=== PATIENT | female | born 1935 | race Caucasian/White ===

== ENCOUNTER 2017-08-09 07:15 | Day surgery (SDC) | payer OTHER, MEDICARE ==
[2017-08-03 14:54] VITALS: BMI 18.7
[2017-08-09] MEDS ORDERED: BUPIVACAINE HCL/PF 0.5% (5MG/ML) 10 ML VIAL ONE (09:51)
[2017-08-09] MEDS ORDERED: BACITRACIN 3.5 GM OPTHALMIC OINT TUBE ONE (09:51)
[2017-08-09] MEDS ORDERED: TETRACAINE 0.5% OPHTH SOLN 2 ML BOTTLE ONE (09:51)
[2017-08-09] MEDS ORDERED: LIDOCAINE 1%/EPI 1:100000 (20 ML MULTI DOSE VIAL) ONE (09:51)
[2017-08-09] MEDS ORDERED: PROPOFOL 20 ML ONE ×2 (10:03)
[2017-08-09] MEDS ORDERED: MIDAZOLAM HCL 2 MG/2 ML SINGLE DOSE VIAL ONE (10:03)
[2017-08-09] MEDS ORDERED: ceFAZolin SODIUM 1 GM VIAL ONE (10:18)
[2017-08-09] MEDS ORDERED: ONDANSETRON 4 MG/2 ML VIAL ONE (10:18)
[2017-08-09] MEDS ORDERED: DEXAMETHASONE SOD PHOSPHATE 4 MG/1 ML VIAL ONE (10:18)
[2017-08-09] MEDS ORDERED: PROMETHAZINE HCL 25 MG/1 ML VIAL IVPB PRN (11:15)
[2017-08-09] MEDS ORDERED: LACTATED RINGERS SOLUTION 1,000 ML IV SCH (11:15)
[2017-08-09] MEDS ORDERED: ONDANSETRON 4 MG/2 ML VIAL IVPUSH PRN (11:15)
[2017-08-09] MEDS ORDERED: oxyCODONE HCL 5 MG TABLET PO PRN ×2 (11:15)
[2017-08-09 12:06] VITALS: TEMP 97.8
[2017-08-09 12:31] VITALS: BP 168/72; PULSE 58
--- NOTE | 2017-08-09 13:10 | OP ---
DATE OF OPERATION: 08/09/2017 PREOPERATIVE DIAGNOSIS: Defect, right upper lid, status post excision of basal cell carcinoma. POSTOPERATIVE DIAGNOSIS: Defect, right upper lid, status post excision of basal cell carcinoma. PROCEDURES: 1. Lateral myocutaneous flap. 2. Debridement and tailoring of defect and repair of full-thickness defect with excision of superior tarsus, right upper lid. SURGEON: Thang Swenson MD ANESTHESIA: Local with sedation. COMPLICATIONS: None. ESTIMATED BLOOD LOSS: 3-5 mL. OPERATIVE REPORT: The patient was brought to the operating room and placed on the operating room table. Vital signs were monitored by Anesthesia. Tetracaine was placed in both eyes. A time-out was performed. A lateral curvilinear myocutaneous flap was marked, extending from the right upper lid inferiorly and inferolaterally into the lateral canthal region. The patient was given intravenous sedation. A 50/50 mixture of 2% Xylocaine and 1:100,000 epinephrine with 0.5% Marcaine was injected diffusely throughout the myocutaneous flap area, through the lateral portion of the right upper lid and right lower lid, and throughout the full width of the right upper lid where the defect was. The patient was prepped and draped in the usual fashion, exposing both eyes. The wound was tailored and regularized. The lid was everted, demonstrating that a small amount of tarsus superiorly was still intact and therefore, this had to be excised to prevent tarsal buckling during the anastomosis. A lateral myocutaneous flap was now developed by dividing the skin and muscle area with a 15 blade, raising the myocutaneous flap and releasing the superior raissa and lateral canthal tendon from the orbital rim, completing allowing the lateral remnant to mobilize medially without damaging the lacrimal gland. Hemostasis was achieved using a Gulf needle. The full-thickness defect in the central was now repaired with 3 interrupted 6-0 silk sutures, one through the anterior lash line, one through the posterior mucocutaneous junction and a vertical mattress suture through the coffman line, creating a central pucker when tied. These were then looped inferiorly in a hemostat and the tarsal plate was anastomosed with three interrupted 6-0 Vicryl sutures with partial thickness bites, not penetrating through the posterior tarsus. The muscle layer was closed with 5-0 chromic and the skin was closed with interrupted running 6-0 silk suture, removing the standing cutaneous deformity at the top of the wedge resection. Marginal sutures were then looped superolaterally to the skin and tied there with a 6-0 silk suture to keep the sutures away from the cornea. The horizontal width of the palpebral fissure on the contralateral side was measured at 26-27 mm and this was marked on the right side. The appropriate width was then determined The lateral canthus was reformed with a buried 5-0 chromic suture at the point of the lateral canthal attachment to the inferior raissa lateral canthal tendon. The skin lateral to this was tailored and closed with interrupted 6-0 silk suture and then lateral to this, the myocutaneous flap was closed with a muscular 5-0 chromic suture with a running 6-0 plain suture. The upper lid was tailored in its lateral portion to be a smooth contour toward the lateral canthus. Antibiotic irrigation was used throughout the case. Bacitracin was placed in the eye, over sutures and lateral canthus, and the patient was taken to the recovery room in stable condition. THANG SWENSON M.D. [id number]
== END 2017-08-09 12:33 | disposition home or self-care (01) ==
LOC: FASU 07:15
PROVIDERS: ATTEND Ophthalmology
PROC: 0KX10ZZ Transfer Facial Muscle, Open Approach (ICD-10-PCS; 2017-08-09)
PROC: 08BN0ZZ Excision of Right Upper Eyelid, Open Approach (ICD-10-PCS; principal; 2017-08-09 10:26)
DX: C44.112 Basal cell carcinoma of skin of right eyelid, including canthus (principal); H02.89 Other specified disorders of eyelid
CPT/HCPCS: 94760

== ENCOUNTER 2017-11-19 19:10 | Inpatient (IN) | payer OTHER, MEDICARE ==
--- NOTE | 2017-11-19 19:51 | PDOC ---
History of Present Illness - General History Source: Patient, Old Records Exam Limitations: No Limitations - History of Present Illness Initial Comments: 11/19/17 21:34 The patient is a 82 year old female with a past medical history of HTN and COPD who presents to the emergency department with dizziness for 4 days. She reports that she was seen at this emergency department yesterday for similar symptoms. She reports that her dizziness feels like Im drunk. Her dizziness is exacerbated when standing and walking. She reports associated unsteady gait, headache, neck pain, back pain, and increased thirst. She took 25 mg of Meclizine at 10:30AM today to alleviate symptoms with no relief. <Tristan Craft - Last Filed: 11/19/17 21:34> - General History Source: Patient Exam Limitations: No Limitations <Alivia Bey - Last Filed: 11/20/17 01:28> - General Chief Complaint: Lightheaded Stated Complaint: LIGHTHEADED Time Seen by Provider: 11/19/17 19:51 Past History <Tristan Craft - Last Filed: 11/19/17 21:34> - Past Medical History Anemia: No Asthma: No Cancer: Yes (BASAL CELL CANCER RIGHT EYE LID 1 MONTH AGO) Cardiac Disorders: No CVA: No COPD: Yes CHF: No Dementia: No Diabetes: No GI Disorders: No Disorders: No HTN: Yes Hypercholesterolemia: Yes Liver Disease: No Seizures: No Thyroid Disease: No - Surgical History Abdominal Surgery: No Appendectomy: No Cardiac Surgery: No Cholecystectomy: No Lung Surgery: No Neurologic Surgery: No Orthopedic Surgery: No - Immunization History Immunization Up to Date: Yes - Suicide/Smoking/Psychosocial Hx Smoking History: Former smoker Have you smoked in the past 12 months: No If you are a former smoker, when did you quit?: 28yrs Cigars Per Day: 0 Information on smoking cessation initiated: No 'Breaking Loose' booklet given: 06/13/13 Hx Alcohol Use: No Drug/Substance Use Hx: No Substance Use Type: None Hx Substance Use Treatment: No <Alivia Bey - Last Filed: 11/20/17 01:28> - Past Medical History Allergies/Adverse Reactions: Allergies Allergy/AdvReac Type Severity Reaction Status Date / Time No Known Allergies Allergy Verified 11/19/17 19:41 Home Medications: Ambulatory Orders Amlodipine Besylate [Norvasc -] 10 mg PO DAILY 07/01/15 Simvastatin [Zocor -] 20 mg PO HS 01/22/16 Sodium Chloride Tablet - 1 gm PO BID 01/22/16 Albuterol Sulfate [Proair Hfa] 8.5 gm IH PRN PRN 08/03/17 Aspirin [Aspirin EC] 81 mg PO DAILY 08/03/17 Budesonide/Formeterol Fumarate [SYMBICORT 160/4.5mcg -] 1 inh PO DAILY 08/03/17 Calcium Carbonate/Vitamin D3 [Calcium 600 + Vit D 400 Softgl] 1 each PO DAILY Multivit-Min/Iron/Folic/Lutein [Centrum Silver Women Tablet] 1 each PO DAILY Vit E/Vit E Mx/Squal/Phytostrl [Mixed Tocotrienols 50 mg Sftgl] 1 each PO DAILY 08/03/17 Meclizine HCl 25 mg PO ONCE #7 tab.chew 11/18/17 Review of Systems - Review of Systems Able to Perform ROS?: Yes Comments:: 11/19/17 21:34 GENERAL/CONSTITUTIONAL: No: fever, chills, weakness, loss of appetite. HEAD, EYES, EARS, NOSE AND THROAT: No: change in vision, ear pain, discharge, sore throat, throat swelling. CARDIOVASCULAR: No: chest pain, lightheadedness, palpitations, syncope RESPIRATORY: No: cough, shortness of breath, wheezing, hemoptysis, stridor. GASTROINTESTINAL: No: nausea, vomiting, abdominal cramping, diarrhea, rectal bleeding, constipation. GENITOURINARY: No: dysuria, hematuria, frequency, urgency, flank pain. MUSCULOSKELETAL: No: back pain, neck pain, joint pain, muscle swelling or pain SKIN: No: lesions, pallor, rash or easy bruising. NEUROLOGIC: (+) Dizziness, unsteady gait, headache. ENDOCRINE: (+) Increased thirst No: unexplained weight gain or loss HEMATOLOGIC/LYMPHATIC: No: anemia, easy bleeding, swelling nodes <Tristan Craft - Last Filed: 11/19/17 21:34> *Physical Exam - Vital Signs Last Vital Signs Temp Pulse Resp BP Pulse Ox 98.1 F 63 18 171/71 96 11/19/17 19:30 11/19/17 19:30 11/19/17 19:30 11/19/17 19:30 11/19/17 19:30 - Physical Exam Comments: 11/19/17 21:34 GENERAL: The patient is in no acute distress. HEAD: Normal with no signs of trauma. EYES: PERRLA, EOMI, sclera anicteric, conjunctiva clear. ENT: Ears normal, nares patent, oropharynx clear without exudates. Moist mucous membranes. NECK: Normal range of motion, supple without lymphadenopathy, JVD, or masses. LUNGS: Breath sounds equal, clear to auscultation bilaterally. (+) Bilateral wheezes, no crackles. HEART:Regular rate and rhythm, normal S1 and S2 without murmur, rub or gallop. ABDOMEN: Soft, nontender, normoactive bowel sounds. No guarding, no rebound. EXTREMITIES: Normal range of motion, no edema. No clubbing or cyanosis. No erythema, or tenderness. NEUROLOGICAL: Cranial nerves II through XII grossly intact. Normal speech. No focal neurological deficits. MUSCULOSKELETAL: Back nontender to palpation, no CVA tenderness SKIN: Warm, Dry, normal turgor, no rashes or lesions noted. <Tristan Craft - Last Filed: 11/19/17 21:34> - Vital Signs Last Vital Signs Temp Pulse Resp BP Pulse Ox 98.1 F 63 18 171/71 96 11/19/17 19:30 11/19/17 19:30 11/19/17 19:30 11/19/17 19:30 11/19/17 19:30 <Alivia Bey - Last Filed: 11/20/17 01:28> ED Treatment Course - LABORATORY CBC & Chemistry Diagram: 11/19/17 20:30 11/19/17 20:30 - ADDITIONAL ORDERS Additional order review: Laboratory Results 11/19/17 20:30 Sodium 120 L* Potassium 4.0 Chloride 85 L Carbon Dioxide 26 Anion Gap 9 BUN 9 Creatinine 0.5 L Creat Clearance w eGFR > 60 Random Glucose 125 H Calcium 7.8 L Total Bilirubin 0.3 AST 21 ALT 18 Alkaline Phosphatase 80 Creatine Kinase 101 Troponin I < 0.02 Total Protein 6.6 Albumin 3.9 11/19/17 20:30 RBC 3.93 MCV 90.9 MCHC 35.3 RDW 14.7 MPV 7.7 Neutrophils % 76.0 Lymphocytes % 10.7 Monocytes % 10.5 H Eosinophils % 2.3 Basophils % 0.5 - Medications Given in the ED: ED Medications Discontinued Medications Generic Name Dose Route Start Last Admin Trade Name Uyen PRN Reason Stop Dose Admin Acetaminophen 1,000 mg 11/19/17 20:51 11/19/17 21:08 Ofirmev Injection - IVPB 11/19/17 20:52 1,000 mg ONCE ONE Administration Diazepam 2 mg 11/19/17 20:49 11/19/17 21:08 Valium - PO 11/19/17 20:50 2 mg ONCE ONE Administration <Tristan Craft - Last Filed: 11/19/17 21:34> - LABORATORY CBC & Chemistry Diagram: 11/19/17 20:30 11/19/17 21:13 <Alivia Bey - Last Filed: 11/20/17 01:28> Medical Decision Making - Critical Care Time Total Critical Care Time (minutes): 35 Critical Care Statement: The care of this patient involved high complexity decision making to prevent further life threatening deterioration of the patient 's condition and/or to evaluate & treat vital organ system(s) failure or risk of failure. - Medical Decision Making EKG: NSR rate of 60 bpm, LBBB, (similar to prior) No Scarbossa criteria present 11/19/17 21:06 Laboratory Tests 11/18/17 11/19/17 11/19/17 08:12 20:30 20:30 WBC 5.1 Hgb 12.6 Hct 35.7 Plt Count 256 Sodium 120 L* Potassium 4.0 Chloride 85 L Carbon Dioxide 26 BUN 12 9 Creatinine 0.7 0.5 L Random Glucose 125 H Creatine Kinase 101 Troponin I < 0.02 EKG: Case reviewed with Dr Jones Will admit to Dr Jones Will start NS hydration Will give sodium tabs 11/19/17 21:43 BPM repeated 11/19/17 21:43 Laboratory Tests 11/19/17 21:13 Sodium 118 L* Potassium 4.2 Chloride 84 L Carbon Dioxide 26 Anion Gap 8 BUN 8 Creatinine 0.5 L Random Glucose 116 H 11/19/17 21:53 Repeated labs reviewed with Dr Jones She requests 2W telemetry Case reviewed with ICU fellow - Tea Pt can be placed on telemetry Will closely monitor labs Pt can be placed in ICU if she worsens Clinical Impression: Persistent vertigo, initial presentation hyponatremia, initial presentation <Alivia Bey - Last Filed: 11/20/17 01:28> *DC/Admit/Observation/Transfer - Attestations Scribe Attestion: 11/19/17 21:35 Documentation prepared by Tristan Craft, acting as medical technicians for Alivia Bey MD. <Tristan Craft - Last Filed: 11/19/17 21:34> - Discharge Dispostion Decision to Admit order: Yes <Alivia Bey - Last Filed: 11/20/17 01:28> Diagnosis at time of Disposition: Hyponatremia, Dizziness - Discharge Dispostion Condition at time of disposition: Good
[2017-11-19] MEDS ORDERED: SODIUM CHLORIDE 1,000 ML IV STA (19:52)
[2017-11-19 20:38] LABS: BASO % 0.5 % (0-2.0); EOS % 2.3 % (0-4.5); HEMATOCRIT 35.7 % (32.4-45.2); HEMOGLOBIN 12.6 GM/dL (10.7-15.3); LYMPH % 10.7 % (8-40); MCH 32.1 pg (25.7-33.7); MCHC 35.3 g/dl (32.0-36.0); MEAN CELL VOLUME 90.9 fl (80-96); MEAN PLT VOLUME 7.7 fl (7.5-11.1); MONO % 10.5 % (3.8-10.2); PLATELET COUNT 256 K/MM3 (134-434); RBC 3.93 M/mm3 (3.60-5.2); RDW 14.7 % (11.6-15.6); WHITE BLOOD COUNT 5.1 K/mm3 (4.0-10.0)
[2017-11-19] MEDS ORDERED: diazePAM 2 MG TABLET PO ONE (20:49)
[2017-11-19] MEDS ORDERED: ACETAMINOPHEN 1000 MG/100 ML VIAL (NON FORMULARY) IVPB ONE (20:51)
[2017-11-19 20:59] LABS: ALBUMIN 3.9 g/dl (3.4-5.0); ANION GAP 9 (8-16); BILIRUBIN,TOTAL 0.3 mg/dL (0.2-1.0); BLOOD UREA NITROGEN 9 mg/dL (7-18); CALCIUM 7.8 mg/dL (8.5-10.1); CHLORIDE 85 mmol/L (98-107); CO2 26 mmol/L (21-32); CREATININE 0.5 mg/dL (0.55-1.02); GLUCOSE,RANDOM 125 mg/dL (74-106); SGOT/AST 21 U/L (15-37); SGPT/ALT 18 U/L (12-78); TOT PROT 6.6 g/dl (6.4-8.2)
[2017-11-19 21:02] LABS: ALK PHOS 80 U/L (45-117)
[2017-11-19] MEDS ORDERED: diazePAM 2 MG TABLET ONE (21:02)
[2017-11-19] MEDS ORDERED: ACETAMINOPHEN INJECTION 100 ML IVPB ONE (21:03)
[2017-11-19 21:05] LABS: SODIUM 120 mmol/L (136-145)
[2017-11-19] MEDS ORDERED: SODIUM CHLORIDE 1,000 ML IV SCH (21:30)
[2017-11-19] MEDS ORDERED: METOCLOPRAMIDE HCL INJECTION 10 MG/2 ML VIAL IVPUSH ONE (21:31)
[2017-11-19 21:40] LABS: ANION GAP 8 (8-16); BLOOD UREA NITROGEN 8 mg/dL (7-18); CALCIUM 7.6 mg/dL (8.5-10.1); CHLORIDE 84 mmol/L (98-107); CO2 26 mmol/L (21-32); CREATININE 0.5 mg/dL (0.55-1.02); GLUCOSE,RANDOM 116 mg/dL (74-106); POTASSIUM 4.2 mmol/L (3.5-5.1)
[2017-11-19 21:41] LABS: SODIUM 118 mmol/L (136-145)
[2017-11-19] MEDS ORDERED: METOCLOPRAMIDE HCL INJECTION 10 MG/2 ML VIAL ONE (21:44)
[2017-11-19] MEDS ORDERED: MECLIZINE HCL 25 MG TABLET (FP) ONE (21:44)
[2017-11-19] MEDS: SODIUM CHLORIDE 1 GM TABLET PO SCH ×2 (21:54→21:55)
[2017-11-19] MEDS: MECLIZINE HCL 25 MG TABLET (FP) PO SCH (21:55)
[2017-11-19] MEDS: HEPARIN NA (PORCINE) 5,000 UNITS/ML 1ML VIAL SQ SCH (22:06)
[2017-11-19] MEDS: ATORVASTATIN CA 10 MG TABLET (FP) PO SCH (22:06)
--- NOTE | 2017-11-19 22:32 | HP ---
Admitting History and Physical - Primary Care Physician PCP: Dwayne Jones - Admission Chief Complaint: Dizziness History of Present Illness: Pt with significant Hx/o hyponatremis, COPD, c/o dizziness for 4 days; yesterday she came to ER co dizziness, her Na was 131, was evaluated by Neuro, Head CT scan was done(w/o acute disease); pt was discharged home. Pt drank Gatorade and water, no better, came back c/o weakness, dizziness. History Source: Patient - Past Medical History Cardiovascular: Yes: HTN, Hyperlipdemia Pulmonary: Yes: COPD Gastrointestinal: Yes: Hiatal Hernia Renal/: Yes: Other (HypoNA) Additional Past Medical History: Hyponatemia - Smoking History Smoking history: Former smoker Have you smoked in the past 12 months: No If you are a former smoker, when did you quit?: 28yrs - Alcohol/Substance Use Hx Alcohol Use: No History of Substance Use: reports: None - Social History ADL: Independent History of Recent Travel: No Home Medications - Allergies Allergies/Adverse Reactions: Allergies Allergy/AdvReac Type Severity Reaction Status Date / Time No Known Allergies Allergy Verified 11/19/17 19:41 - Home Medications Home Medications: Ambulatory Orders Amlodipine Besylate [Norvasc -] 10 mg PO DAILY 07/01/15 Simvastatin [Zocor -] 20 mg PO HS 01/22/16 Sodium Chloride Tablet - 1 gm PO BID 01/22/16 Albuterol Sulfate [Proair Hfa] 8.5 gm IH PRN PRN 08/03/17 Aspirin [Aspirin EC] 81 mg PO DAILY 08/03/17 Budesonide/Formeterol Fumarate [SYMBICORT 160/4.5mcg -] 1 inh PO DAILY 08/03/17 Calcium Carbonate/Vitamin D3 [Calcium 600 + Vit D 400 Softgl] 1 each PO DAILY Multivit-Min/Iron/Folic/Lutein [Centrum Silver Women Tablet] 1 each PO DAILY Vit E/Vit E Mx/Squal/Phytostrl [Mixed Tocotrienols 50 mg Sftgl] 1 each PO DAILY 08/03/17 Meclizine HCl 25 mg PO ONCE #7 tab.chew 11/18/17 Review of Systems - Review of Systems Constitutional: denies: Chills, Fever Eyes: reports: Double Vision. denies: Blurred Vision HENT: denies: Nasal Congestion, Throat Pain Neck: reports: Other (neck pain for few days). denies: Decreased ROM, Stiffness Cardiovascular: denies: Chest Pain, Edema, Palpitations Respiratory: reports: Other (NO change in her chronic cough, wheezing.). denies : Exercise Intolerance, SOB on Exertion Gastrointestinal: denies: Abdominal Pain, Constipation, Diarrhea, Nausea, Vomiting Genitourinary: denies: Burning, Dysuria, Flank Pain, Frequency Musculoskeletal: denies: Back Pain, Joint Swelling Integumentary: denies: Bruising, Rash Neurological: reports: Weakness. denies: Change in LOC, Headache, Numbness, Seizure, Syncope Endocrine: denies: Excessive Sweating, Intolerance to Cold Hematology/Lymphatic: denies: Easily Bruised, Excessive Bleeding Psychiatric: denies: Anxiety, Depression Physical Examination Vital Signs: Vital Signs Temperature 98.1 F 11/19/17 19:30 Pulse Rate 63 11/19/17 19:30 Respiratory Rate 18 11/19/17 19:30 Blood Pressure 171/71 11/19/17 19:30 O2 Sat by Pulse Oximetry (%) 96 11/19/17 19:30 Constitutional: Yes: No Distress, Calm Eyes: Yes: Conjunctiva Clear, EOM Intact HENT: Yes: Normocephalic. No: Pharyngeal Erythema, Rhinnorhea Neck: Yes: Trachea Midline. No: Lymphadenopathy Cardiovascular: Yes: Regular Rate and Rhythm, S1, S2 Respiratory: Yes: Regular, Rhonchi, Wheezes Gastrointestinal: Yes: Normal Bowel Sounds, Soft. No: Tenderness ...Rectal Exam: Yes: Deferred Breast(s): Yes: Other (deferred) Musculoskeletal: No: Joint Stiffness, Joint Swelling Extremities: No: Cold, Cool, Cyanosis Edema: No (no edema) Integumentary: No: Erythema, Rash Neurological: Yes: Alert, Oriented, Other (symmetric motor and sensory emanination in UE/ LE/ face) Psychiatric: Yes: Alert, Oriented Labs: CBC, BMP 11/19/17 20:30 11/19/17 21:13 Imaging - Results Chest X-ray: Pending, Report Reviewed Cat Scan: Report Reviewed Problem List - Problems (1) Hyponatremia Assessment/Plan: Acute on Chronic Code(s): E87.1 - HYPO-OSMOLALITY AND HYPONATREMIA (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 Decreased PO free water intake. Neurochecks twice per shift Renal consult. Neuro consult. AM labs Pt's familly ( and son) at bedside, pt's condition was reviewed, all questions were answered. Time spent formanaging pt's care: over 80 minutes.
[2017-11-20] MEDS: ALBUTEROL SO4 0.083% IH SOL 2.5 MG/3 ML VIAL.NEB. NEB PRN ×2 (00:13→15:05)
[2017-11-20] MEDS ORDERED: amLODIPine BESYLATE 5 MG TABLET (FP) PO ONE (00:15)
--- NOTE | 2017-11-20 07:25 | PN ---
Progress Note, Physician Chief Complaint: OOB to chair still with some headaches neck pain and dizziness; no N/V; son and at bedside ate OK; d/w pt free water restriction to 1 L/day; to have gatorade instead consults tests meds labs d/w pt and her family - Current Medication List Current Medications: Active Medications Albuterol Sulfate (Ventolin 0.083% Nebulizer Soln -) 1 amp NEB Q6H PRN PRN Reason: SHORT OF BREATH/WHEEZING Last Admin: 11/20/17 00:13 Dose: 1 amp Amlodipine Besylate (Norvasc -) 10 mg PO DAILY [facility] Aspirin (Ecotrin -) 81 mg PO DAILY [facility] Atorvastatin Calcium (Lipitor -) 10 mg PO HS [facility] Last Admin: 11/19/17 22:06 Dose: 10 mg Budesonide/Formoterol Fumarate (Symbicort 160/4.5mcg -) 1 puff IH DAILY [facility] Calcium Carbonate/Cholecalciferol (Os-Maurice 500+D -) 1 tab PO DAILY [facility] Heparin Sodium (Porcine) (Heparin -) 5,000 unit SQ BID [facility] Last Admin: 11/19/17 22:06 Dose: 5,000 unit Sodium Chloride (Normal Saline -) 1,000 mls @ 42 mls/hr IV ASDIR [facility] Last Admin: 11/19/17 21:54 Dose: 42 mls/hr Meclizine HCl (Antivert -) 25 mg PO DAILY [facility] Last Admin: 11/19/17 21:55 Dose: 25 mg Multivitamins/Minerals/Vitamin C (Tab-A-Vit -) 1 tab PO DAILY [facility] Sodium Chloride (Sodium Chloride Tablet -) 1 gm PO DAILY [facility] Last Admin: 11/19/17 21:55 Dose: Not Given - Objective Vital Signs: Vital Signs Temperature 97.9 F 11/20/17 06:00 Pulse Rate 56 L 11/20/17 06:00 Respiratory Rate 20 11/20/17 06:00 Blood Pressure 133/60 11/20/17 06:00 O2 Sat by Pulse Oximetry (%) 95 11/19/17 23:30 Constitutional: Yes: No Distress, Calm Eyes: Yes: Conjunctiva Clear HENT: Yes: Atraumatic Neck: Yes: Supple Cardiovascular: Yes: Regular Rate and Rhythm Respiratory: Yes: CTA Bilaterally Gastrointestinal: Yes: Soft. No: Distention, Tenderness Genitourinary: No: CVA Tenderness - Left, CVA Tenderness - Right Musculoskeletal: No: Joint Stiffness, Joint Swelling Extremities: No: Cold, Cool, Cyanosis Edema: No Integumentary: No: Rash, Venous Stasis Changes Neurological: Yes: WNL, Alert, Oriented ...Motor Strength: WNL Psychiatric: Yes: WNL, Alert, Oriented. No: Agitated, Suicidal Ideation Labs: CBC, BMP 11/19/17 20:30 11/19/17 21:13 - ....Imaging Other: Report Reviewed Assessment/Plan A/P 82 year old female with a past medical history of HTN and COPD admitted with persistent dizziness for 4 days. She was seen at this emergency department 2 days ago for similar symptoms headt CT negative, seen by neuro dr Leiva in ER sent home. Came back yesterday with dizziness. She reports associated unsteady gait, headache, neck pain, back pain, and increased thirst. She took 25 mg of Meclizine to alleviate symptoms with no relief. head CT negative but Na 120 (from 131 2 days ago), admitted for further w/u and tx d/w pt and son and at bedside: increased BP on 10 mg norvasc, I did d/w cardio dr Isaacs to consider adding another BP medication (except diuretics which can exacerbate lowNa); dizziness headaches neck pain d/w pt and family and d/w neuro dr Leiva, BP control, Na control; consider MRI and LP to r/o SAH, infection (unlikely with head CT negative and no fever no WBC); no neck rigidity on exam; low Na: d/w renal dr Davenport: most likely reset OSM, Siadh; to have po Na; on IVF for now, f/u labs also d/w pt and staff falls PFX do not get OOB alone risks falls; bed alarm t time 40 min
[2017-11-20 08:45] LABS: ANION GAP 9 (8-16); BLOOD UREA NITROGEN 6 mg/dL (7-18); CALCIUM 7.4 mg/dL (8.5-10.1); CHLORIDE 86 mmol/L (98-107); CO2 26 mmol/L (21-32); GLUCOSE,RANDOM 94 mg/dL (74-106); POTASSIUM 3.9 mmol/L (3.5-5.1)
[2017-11-20 08:48] LABS: CREATININE 0.4 mg/dL (0.55-1.02)
[2017-11-20] MEDS ORDERED: ACETAMINOPHEN 325 MG TABLET (FP) ONE (09:08)
[2017-11-20] MEDS ORDERED: PT OWN MED DRAWER 7, Y5N ONE ×3 (09:09→15:35)
[2017-11-20] MEDS: CALCIUM 500MG/VIT-D 200 UNITS COMBO TABLET (FP) PO SCH (09:21)
[2017-11-20] MEDS: MECLIZINE HCL 25 MG TABLET (FP) PO SCH ×3 (09:21→21:37)
[2017-11-20] MEDS: amLODIPine BESYLATE 10 MG TABLET (FP) PO SCH (09:21)
[2017-11-20] MEDS: ASPIRIN COATED 81 MG TABLET.EC PO SCH (09:21)
[2017-11-20] MEDS: MULTIVITAMINS (DAILY MVI) TABLET (FP) PO SCH (09:21)
[2017-11-20] MEDS: SODIUM CHLORIDE 1 GM TABLET PO SCH (09:22)
[2017-11-20] MEDS: BUDESONIDE/FORMETEROL FUMARATE 160/4.5 mcg INHALER IH SCH (09:22)
[2017-11-20 09:28] LABS: SODIUM 121 mmol/L (136-145)
[2017-11-20 09:44] LABS: URINE APPEARANCE CLEAR; URINE BILIRUBIN NEGATIVE (<2.0 mg/dL); URINE COLOR LTYELLOW; URINE GLUCOSE (UA) NEGATIVE (NEGATIVE); URINE KETONE NEGATIVE (NEGATIVE); URINE LEUK ESTERASE NEGATIVE (NEGATIVE); URINE NITRITE NEGATIVE (NEGATIVE); URINE PROTEIN NEGATIVE (NEGATIVE); URINE UROBILINOGEN NEGATIVE mg/dL (0.2-1.0)
--- NOTE | 2017-11-20 10:52 | CON.CARD ---
Consult Consult Specialty:: cardio - History of Present Illness Chief Complaint: SCHROEDER, dizzy History of Present Illness: 82 yo F went to ER 11/18 with SCHROEDER/dizziness, CT head unremarkable, sent home. she drank fluids at home but felt no better so returned to ER 11/19. noted to be hyponatremic, admitted. describes the sensation as "like i was drunk" and off balance. no near-syncope/presyncope. no vertigo denies cp, sob, palpitations pt has seen me in the past for HTN. she has had side effects to attempted trials of meds and has declined further followup for BP mgmt (last saw me few years ago). 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 PMH: as above copd HPL ex cigs - Past Medical History Cardio/Vascular: Yes: HTN, Hyperlipdemia Pulmonary: Yes: COPD Gastrointestinal: Yes: Hiatal Hernia Renal/: Yes: Other (HypoNA) ...: No - Alcohol/Substance Use Hx Alcohol Use: No History of Substance Use: reports: None - Smoking History Smoking history: Former smoker Have you smoked in the past 12 months: No If you are a former smoker, when did you quit?: 28yrs - Social History ADL: Independent History of Recent Travel: No Home Medications - Allergies Allergies/Adverse Reactions: Allergies Allergy/AdvReac Type Severity Reaction Status Date / Time No Known Allergies Allergy Verified 11/19/17 19:41 - Home Medications Home Medications: Ambulatory Orders Amlodipine Besylate [Norvasc -] 10 mg PO DAILY 07/01/15 Simvastatin [Zocor -] 20 mg PO HS 01/22/16 Sodium Chloride Tablet - 1 gm PO BID 01/22/16 Albuterol Sulfate [Proair Hfa] 8.5 gm IH PRN PRN 08/03/17 Aspirin [Aspirin EC] 81 mg PO DAILY 08/03/17 Budesonide/Formeterol Fumarate [SYMBICORT 160/4.5mcg -] 1 inh PO DAILY 08/03/17 Calcium Carbonate/Vitamin D3 [Calcium 600 + Vit D 400 Softgl] 1 each PO DAILY Multivit-Min/Iron/Folic/Lutein [Centrum Silver Women Tablet] 1 each PO DAILY Vit E/Vit E Mx/Squal/Phytostrl [Mixed Tocotrienols 50 mg Sftgl] 1 each PO DAILY 08/03/17 Meclizine HCl 25 mg PO ONCE #7 tab.chew 11/18/17 Family Disease History - Family Disease History Family History: Denies (no known cmp) Review of Systems - Review of Systems Constitutional: denies: Chills, Fever Eyes: denies: Eye Pain HENT: denies: Nasal Congestion Neck: denies: Stiffness Cardiovascular: denies: Palpitations Respiratory: denies: Orthopnea, PND Gastrointestinal: denies: Diarrhea, Rectal Bleeding Genitourinary: denies: Burning, Hematuria Musculoskeletal: denies: Muscle Pain Integumentary: denies: Rash Neurological: denies: Numbness, Seizure, Syncope Endocrine: denies: Excessive Sweating Hematology/Lymphatic: denies: Excessive Bleeding Vital Signs: Vital Signs Temperature 98 F 11/20/17 09:20 Pulse Rate 61 11/20/17 09:20 Respiratory Rate 20 11/20/17 09:20 Blood Pressure 162/63 11/20/17 09:20 O2 Sat by Pulse Oximetry (%) 95 11/20/17 09:00 Constitutional: Yes: Well Nourished, No Distress Eyes: No: Sclera Icterus HENT: No: Nasal Congestion Neck: No: Decreased ROM Respiratory: Yes: CTA Bilaterally (decr diffusely). No: Accessory Muscle Use, Rales, Wheezes Gastrointestinal: Yes: Normal Bowel Sounds. No: Distention, Hepatomegaly, Palpable Mass, Tenderness Cardiovascular: Yes: Regular Rate and Rhythm JVD: No Carotid Bruit: No PMI: Non-Displaced Heart Sounds: Yes: S1, S2. No: Gallop Murmur: No: Systolic Murmur, Diastolic Murmur Musculoskeletal: Yes: Other (No kyphosis) Extremities: No: Cool, Cyanosis Edema: No Peripheral Pulses: 2+ Left Carotid, 2+ Right Carotid, 2+ Left Doralis Pedis, 2+ Right Dorsalis Pedis Integumentary: No: Jaundice Neurological: Yes: Alert, Oriented (x3) Psychiatric: No: Agitated - Other Data Labs, Other Data: CBC, BMP 11/19/17 20:30 11/20/17 06:45 Troponin, BNP 11/19/17 20:30 Troponin I < 0.02 Troponin, BNP 11/19/17 20:30 Troponin I < 0.02 Laboratory Tests 11/19/17 11/19/17 11/20/17 20:30 20:30 06:45 WBC 5.1 Hgb 12.6 Plt Count 256 Sodium 121 L* Potassium 3.9 Carbon Dioxide 26 BUN 6 L Creatinine 0.4 L AST 21 ALT 18 Creatine Kinase 101 Troponin I < 0.02 Albumin 3.9 Assessment/Plan ECG x3: NSR, LBBB--no change vs prior CXR: clear lungs/pleura CT head 11/18 (during ER visit): no acute pathology tele: NSR hyponatremia: -sec to SIADH in the past, doubt med induced -renal consult pending--defer tx to them, including free water restriction SCHROEDER, dizzy, neck pain: -CT head unremarkable -unrelated to her BPs, as she tolerates moderately elevated BPs for many yrs and is near her baseline BP range -neuro consult pending HTN: -systolic BP ranging 130s-180s here -from memory, this is very c/w her prior baseline, for which she declined further med trials or office f/u -tolerates amlodipine long time -intolerant of ARB i believe previously -would avoid thiazides and spironolactone given potential to exacerbate hyponatremia -HR 50s-60s, on the low side for trial of b-rebeka or clonidine (though possible she would tolerate these) -recommend trial of low dose hydralazine, though i am not convinced patient will comply with BID dosing at home (this has not been associated with hyponatremia/SIADH as per uptodate) -start hydral 10mg BID and incr dose tomorrow if tolerating NO INDICATION FOR TELEMETRY MONITORING--D/C'D
[2017-11-20] MEDS: HEPARIN NA (PORCINE) 5,000 UNITS/ML 1ML VIAL SQ SCH ×2 (11:47→21:37)
--- NOTE | 2017-11-20 12:07 | CONSULT ---
Consult - text type - Consultation Consultation Note: Neurology History of Present Illness The patient is a 82 year old female with a past medical history of HTN and COPD who presented to the emergency department with dizziness for 4 days. She reported that she was seen at this emergency department on Tuesday for similar symptoms and seen by me then. She reported that her dizziness recurred at home though she was doing well during my evaluation then. Her dizziness is exacerbated when standing and walking. She reports associated unsteady gait, headache, neck pain, back pain, and increased thirst. She had CT head at that time and acute changes noted. Does have neck pain but no nuchal rigidity. Discussed with her having MRI brain to rule out cerebellar infact and she was in agreement but may need sedative to tolerate procedure. Feels slightly better this morning but not fully at baseline. She is able to sit up at bedside without discomfort. 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) Cardiac Disorders: No CVA: No COPD: Yes CHF: No Dementia: No Diabetes: No GI Disorders: No Disorders: No HTN: Yes Hypercholesterolemia: Yes Liver Disease: No Seizures: No Thyroid Disease: No - Surgical History Abdominal Surgery: No Appendectomy: No Cardiac Surgery: No Cholecystectomy: No Lung Surgery: No Neurologic Surgery: No Orthopedic Surgery: No - Immunization History Immunization Up to Date: Yes - Suicide/Smoking/Psychosocial Hx Smoking History: Former smoker Have you smoked in the past 12 months: No If you are a former smoker, when did you quit?: 28yrs Cigars Per Day: 0 Information on smoking cessation initiated: No 'Breaking Loose' booklet given: 06/13/13 Hx Alcohol Use: No Drug/Substance Use Hx: No Substance Use Type: None Hx Substance Use Treatment: No - Past Medical History Allergies/Adverse Reactions: Allergies Allergy/AdvReac Type Severity Reaction Status Date / Time No Known Allergies Allergy Verified 11/19/17 19:41 Home Medications: Ambulatory Orders Amlodipine Besylate [Norvasc -] 10 mg PO DAILY 07/01/15 Simvastatin [Zocor -] 20 mg PO HS 01/22/16 Sodium Chloride Tablet - 1 gm PO BID 01/22/16 Albuterol Sulfate [Proair Hfa] 8.5 gm IH PRN PRN 08/03/17 Aspirin [Aspirin EC] 81 mg PO DAILY 08/03/17 Budesonide/Formeterol Fumarate [SYMBICORT 160/4.5mcg -] 1 inh PO DAILY 08/03/17 Calcium Carbonate/Vitamin D3 [Calcium 600 + Vit D 400 Softgl] 1 each PO DAILY Multivit-Min/Iron/Folic/Lutein [Centrum Silver Women Tablet] 1 each PO DAILY Vit E/Vit E Mx/Squal/Phytostrl [Mixed Tocotrienols 50 mg Sftgl] 1 each PO DAILY 08/03/17 Meclizine HCl 25 mg PO ONCE #7 tab.chew 11/18/17 Review of Systems GENERAL/CONSTITUTIONAL: No: fever, chills, weakness, loss of appetite. HEAD, EYES, EARS, NOSE AND THROAT: No: change in vision, ear pain, discharge, sore throat, throat swelling. CARDIOVASCULAR: No: chest pain, lightheadedness, palpitations, syncope RESPIRATORY: No: cough, shortness of breath, wheezing, hemoptysis, stridor. GASTROINTESTINAL: No: nausea, vomiting, abdominal cramping, diarrhea, rectal bleeding, constipation. GENITOURINARY: No: dysuria, hematuria, frequency, urgency, flank pain. MUSCULOSKELETAL: No: back pain, neck pain, joint pain, muscle swelling or pain SKIN: No: lesions, pallor, rash or easy bruising. NEUROLOGIC: (+) Dizziness, unsteady gait, headache. ENDOCRINE: (+) Increased thirst No: unexplained weight gain or loss HEMATOLOGIC/LYMPHATIC: No: anemia, easy bleeding, swelling nodes *Physical Exam Vital Signs Period Temp Pulse Resp BP Sys/Lubin Pulse Ox Last 24 Hr 97.2 F-98.1 F 56-65 18-22 133-184/60-83 95-96 GENERAL: The patient is in no acute distress. HEAD: Normal with no signs of trauma. EYES: PERRLA, EOMI, sclera anicteric, conjunctiva clear. ENT: Ears normal, nares patent, oropharynx clear without exudates. Moist mucous membranes. NECK: Normal range of motion, supple without lymphadenopathy, JVD, or masses. LUNGS: Breath sounds equal, clear to auscultation bilaterally. (+) Bilateral wheezes, no crackles. HEART:Regular rate and rhythm, normal S1 and S2 without murmur, rub or gallop. ABDOMEN: Soft, nontender, normoactive bowel sounds. No guarding, no rebound. EXTREMITIES: Normal range of motion, no edema. No clubbing or cyanosis. No erythema, or tenderness. NEUROLOGICAL: CN intact, strength symetric, sensory intact, gait deferred MUSCULOSKELETAL: Back nontender to palpation, no CVA tenderness SKIN: Warm, Dry, normal turgor, no rashes or lesions noted. CBCD WBC 5.1 K/mm3 (4.0-10.0) 11/19/17 20:30 RBC 3.93 M/mm3 (3.60-5.2) 11/19/17 20:30 Hgb 12.6 GM/dL (10.7-15.3) 11/19/17 20:30 Hct 35.7 % (32.4-45.2) 11/19/17 20:30 MCV 90.9 fl (80-96) 11/19/17 20:30 MCHC 35.3 g/dl (32.0-36.0) 11/19/17 20:30 RDW 14.7 % (11.6-15.6) 11/19/17 20:30 Plt Count 256 K/MM3 (134-434) 11/19/17 20:30 MPV 7.7 fl (7.5-11.1) 11/19/17 20:30 CMP Sodium 121 mmol/L (136-145) L* 11/20/17 06:45 Potassium 3.9 mmol/L (3.5-5.1) 11/20/17 06:45 Chloride 86 mmol/L (98-107) L 11/20/17 06:45 Carbon Dioxide 26 mmol/L (21-32) 11/20/17 06:45 Anion Gap 9 (8-16) 11/20/17 06:45 BUN 6 mg/dL (7-18) L 11/20/17 06:45 Creatinine 0.4 mg/dL (0.55-1.02) L 11/20/17 06:45 Creat Clearance w eGFR > 60 (>60) 11/19/17 20:30 Random Glucose 94 mg/dL (74-106) 11/20/17 06:45 Calcium 7.4 mg/dL (8.5-10.1) L 11/20/17 06:45 Total Bilirubin 0.3 mg/dL (0.2-1.0) 11/19/17 20:30 AST 21 U/L (15-37) 11/19/17 20:30 ALT 18 U/L (12-78) 11/19/17 20:30 Alkaline Phosphatase 80 U/L (45-117) 11/19/17 20:30 Total Protein 6.6 g/dl (6.4-8.2) 11/19/17 20:30 Albumin 3.9 g/dl (3.4-5.0) 11/19/17 20:30 CARDIAC ENZYMES Creatine Kinase 101 IU/L (26-192) 11/19/17 20:30 Troponin I < 0.02 ng/ml (0.00-0.05) 11/19/17 20:30 CT head reviewed, no acute changes Plan: 82 year old female with a past medical history of HTN and COPD who presented to the emergency department with dizziness for 4 days. She reported that she was seen at this emergency department on Tuesday for similar symptoms and seen by me then. She reported that her dizziness recurred at home though she was doing well during my evaluation then. Her dizziness is exacerbated when standing and walking. She reports associated unsteady gait, headache, neck pain, back pain, and increased thirst. She had CT head at that time and acute changes noted. Does have neck pain but no nuchal rigidity. Discussed with her having MRI brain to rule out cerebellar infact and she was in agreement but may need sedative to tolerate procedure. Feels slightly better this morning but not fully at baseline. She is able to sit up at bedside without discomfort. No sudden head movements. Hydration recommended. Can continue meclezine, if this is not effective, Valium can be tried, low dose 2mg. Fall precautions.
[2017-11-20] MEDS ORDERED: LORazepam 0.5 MG TABLET PO ONE (12:15)
[2017-11-20] MEDS: hydrALAZINE HCL 10 MG TABLET PO SCH ×2 (12:39→21:37)
--- NOTE | 2017-11-20 13:26 | EKG ---
Test Reason : Blood Pressure : / mmHG Vent. Rate : 060 BPM Atrial Rate : 060 BPM P-R Int : 176 ms QRS Dur : 152 ms QT Int : 528 ms P-R-T Axes : 072 062 076 degrees QTc Int : 528 ms NORMAL SINUS RHYTHM POSSIBLE LEFT ATRIAL ENLARGEMENT LEFT BUNDLE BRANCH BLOCK ABNORMAL ECG WHEN COMPARED WITH ECG OF 19-NOV-2017 20:14, NO SIGNIFICANT CHANGE WAS FOUND Confirmed by RENE LEONG, KATHARINE ([id number]) on 11/20/2017 1:26:11 PM Referred By: Confirmed By:KATHARINE LÓPEZ MD
--- NOTE | 2017-11-20 13:26 | EKG ---
Test Reason : Blood Pressure : / mmHG Vent. Rate : 059 BPM Atrial Rate : 059 BPM P-R Int : 188 ms QRS Dur : 148 ms QT Int : 516 ms P-R-T Axes : 079 066 082 degrees QTc Int : 510 ms POOR DATA QUALITY, INTERPRETATION MAY BE ADVERSELY AFFECTED SINUS BRADYCARDIA POSSIBLE LEFT ATRIAL ENLARGEMENT LEFT BUNDLE BRANCH BLOCK ABNORMAL ECG WHEN COMPARED WITH ECG OF 18-NOV-2017 10:27, T WAVE INVERSION NO LONGER EVIDENT IN LATERAL LEADS Confirmed by RENE LEONG, KATHARINE ([id number]) on 11/20/2017 1:26:20 PM Referred By: Confirmed By:KATHARINE LÓPEZ MD
--- NOTE | 2017-11-20 13:36 | CONSULT ---
Consult Consult Specialty:: Nephrology ( Uziel/ Prabhjot) Referred by:: Dr. Jones Reason for Consultation:: Acute Hyponatremia - History of Present Illness History of Present Illness: Pt with significant Hx/o Hyponatremis, COPD, c/o dizziness for 4 days. Yesterday she came to ER c/o dizziness, her Na was 131, was evaluated by Neuro, Head CT scan was done(w/o acute disease) Patient was discharged home. the she drank large amounts of gatorade and water, no better, so came back c/o weakness, dizziness. Found to have acute further drop in serum Sodium - History Source History Provided By: Patient, Family Member - Past Medical History Cardio/Vascular: Yes: HTN, Hyperlipdemia Pulmonary: Yes: COPD Gastrointestinal: Yes: Hiatal Hernia Renal/: Yes: Other (HypoNA) ...: No - Alcohol/Substance Use Hx Alcohol Use: No History of Substance Use: reports: None - Smoking History Smoking history: Former smoker Have you smoked in the past 12 months: No If you are a former smoker, when did you quit?: 28yrs - Social History ADL: Independent History of Recent Travel: No Home Medications - Allergies Allergies/Adverse Reactions: Allergies Allergy/AdvReac Type Severity Reaction Status Date / Time No Known Allergies Allergy Verified 11/19/17 19:41 - Home Medications Home Medications: Ambulatory Orders Amlodipine Besylate [Norvasc -] 10 mg PO DAILY 07/01/15 Simvastatin [Zocor -] 20 mg PO HS 01/22/16 Sodium Chloride Tablet - 1 gm PO BID 01/22/16 Albuterol Sulfate [Proair Hfa] 8.5 gm IH PRN PRN 08/03/17 Aspirin [Aspirin EC] 81 mg PO DAILY 08/03/17 Budesonide/Formeterol Fumarate [SYMBICORT 160/4.5mcg -] 1 inh PO DAILY 08/03/17 Calcium Carbonate/Vitamin D3 [Calcium 600 + Vit D 400 Softgl] 1 each PO DAILY Multivit-Min/Iron/Folic/Lutein [Centrum Silver Women Tablet] 1 each PO DAILY Vit E/Vit E Mx/Squal/Phytostrl [Mixed Tocotrienols 50 mg Sftgl] 1 each PO DAILY 08/03/17 Meclizine HCl 25 mg PO ONCE #7 tab.chew 11/18/17 Review of Systems - Review of Systems Constitutional: denies: Diaphoresis Cardiovascular: denies: Chest Pain, Edema, Palpitations, Shortness of Breath Respiratory: denies: Cough Musculoskeletal: denies: Back Pain Neurological: reports: Dizziness, Unsteady Gait, Weakness Physical Exam Vital Signs: Vital Signs Temperature 98 F 11/20/17 09:20 Pulse Rate 61 11/20/17 09:20 Respiratory Rate 20 11/20/17 09:20 Blood Pressure 162/63 11/20/17 09:20 O2 Sat by Pulse Oximetry (%) 95 11/20/17 09:00 Constitutional: Yes: No Distress, Anxious Eyes: Yes: EOM Intact HENT: Yes: Normocephalic Neck: Yes: Trachea Midline Cardiovascular: Yes: S1, S2 Respiratory: Yes: CTA Bilaterally. No: Rales, Rhonchi Gastrointestinal: Yes: Normal Bowel Sounds Renal/: No: Bladder Distention, CVA Tenderness - Left, CVA Tenderness - Right Edema: No Neurological: Yes: Alert, Weakness. No: Ataxia, Confusion, Unsteady Gait Labs: CBC, BMP 11/19/17 20:30 11/20/17 06:45 Problem List - Problems (1) Dizziness Code(s): R42 - DIZZINESS AND GIDDINESS (2) Hyponatremia Code(s): E87.1 - HYPO-OSMOLALITY AND HYPONATREMIA (3) Head ache Code(s): R51 - HEADACHE Qualifiers: Headache type: unspecified Headache chronicity pattern: acute headache Intractability: not intractable Qualified Code(s): R51 - Headache (4) Hyperlipidemia Code(s): E78.5 - HYPERLIPIDEMIA, UNSPECIFIED (5) Hypertension Code(s): I10 - ESSENTIAL (PRIMARY) HYPERTENSION Qualifiers: Hypertension type: essential hypertension Qualified Code(s): I10 - Essential (primary) hypertension (6) Lightheadedness Code(s): R42 - DIZZINESS AND GIDDINESS Assessment/Plan 82 y/o female with significant Hx/o hyponatremis, COPD, c/o dizziness for 4 days Acute on Chronic hyponatemia. The Acute hyponatremia may most likely be due to some degree of defect in excreting a maximally dilute urine (due to non-osmotic ADH release). It is highly likely that the patient has a Chronic syndrome of SIADH, which presented as Acute hyponatremia when the patient water loaded herself. Also may have reset Osmostat causing a steady state of Chronic hyponatremia. Suggest. Will stop IV saline. Continue Salt Tablets. The patient may benefit from Sodium Chloride tabs as outpatient. Will restrict PO fluids to about 6 cups a day. Discussed with the family. Thank you. Will follow with you Izabella Triplett MD
[2017-11-20] MEDS: ATORVASTATIN CA 10 MG TABLET (FP) PO SCH (21:37)
[2017-11-21] MEDS: MECLIZINE HCL 25 MG TABLET (FP) PO SCH ×3 (05:23→22:51)
[2017-11-21 07:27] LABS: BASO % 0.5 % (0-2.0); HEMATOCRIT 35.3 % (32.4-45.2); HEMOGLOBIN 12.3 GM/dL (10.7-15.3); LYMPH % 12.5 % (8-40); MCH 31.3 pg (25.7-33.7); MCHC 34.7 g/dl (32.0-36.0); MEAN CELL VOLUME 90.2 fl (80-96); MEAN PLT VOLUME 7.9 fl (7.5-11.1); MONO % 11.2 % (3.8-10.2); NEUT % 73.8 % (42.8-82.8); PLATELET COUNT 276 K/MM3 (134-434); RBC 3.91 M/mm3 (3.60-5.2); RDW 14.1 % (11.6-15.6); WHITE BLOOD COUNT 4.7 K/mm3 (4.0-10.0)
[2017-11-21] MEDS: ACETAMINOPHEN 325 MG TABLET (FP) PO PRN ×2 (07:44→22:49)
[2017-11-21 08:11] LABS: CALCIUM 7.6 mg/dL (8.5-10.1); CHLORIDE 76 mmol/L (98-107); POTASSIUM 3.8 mmol/L (3.5-5.1)
[2017-11-21 08:15] LABS: ANION GAP 9 (8-16); BLOOD UREA NITROGEN 6 mg/dL (7-18); CO2 26 mmol/L (21-32); CREATININE 0.4 mg/dL (0.55-1.02); GLUCOSE,RANDOM 104 mg/dL (74-106)
[2017-11-21 08:20] LABS: SODIUM 111 mmol/L (136-145)
--- NOTE | 2017-11-21 08:43 | PN ---
Progress Note, Physician Chief Complaint: SCHROEDER History of Present Illness: didn't sleep all night--severe SCHROEDER/neck pain. says she's had this type of SCHROEDER in the past with low Na levels but nowhere near as severe no cp, sob, palpitations - Current Medication List Current Medications: Active Medications Acetaminophen (Tylenol -) 650 mg PO Q6H PRN PRN Reason: HEADACHE Last Admin: 11/21/17 07:44 Dose: 650 mg Albuterol Sulfate (Ventolin 0.083% Nebulizer Soln -) 1 amp NEB Q6H PRN PRN Reason: SHORT OF BREATH/WHEEZING Last Admin: 11/20/17 15:05 Dose: 1 amp Amlodipine Besylate (Norvasc -) 10 mg PO DAILY [facility] Last Admin: 11/20/17 09:21 Dose: 10 mg Aspirin (Ecotrin -) 81 mg PO DAILY [facility] Last Admin: 11/20/17 09:21 Dose: 81 mg Atorvastatin Calcium (Lipitor -) 10 mg PO HS [facility] Last Admin: 11/20/17 21:37 Dose: 10 mg Budesonide/Formoterol Fumarate (Symbicort 160/4.5mcg -) 1 puff IH DAILY [facility] Last Admin: 11/20/17 09:22 Dose: 1 puff Calcium Carbonate/Cholecalciferol (Os-Maurice 500+D -) 1 tab PO DAILY [facility] Last Admin: 11/20/17 09:21 Dose: 1 tab Heparin Sodium (Porcine) (Heparin -) 5,000 unit SQ BID [facility] Last Admin: 11/20/17 21:37 Dose: 5,000 unit Hydralazine HCl (Apresoline -) 10 mg PO BID [facility] Last Admin: 11/20/17 21:37 Dose: 10 mg Sodium Chloride (Sodium Chloride 3%) 250 mls @ 50 mls/hr IVPB ONCE ONE Stop: 11/21/17 13:44 Meclizine HCl (Antivert -) 25 mg PO TID [facility] Last Admin: 11/21/17 05:23 Dose: 25 mg Multivitamins/Minerals/Vitamin C (Tab-A-Vit -) 1 tab PO DAILY [facility] Last Admin: 11/20/17 09:21 Dose: 1 tab Sodium Chloride (Sodium Chloride Tablet -) 1 gm PO TID [facility] - Objective Vital Signs: Vital Signs Temperature 97.0 F L 11/21/17 06:00 Pulse Rate 62 11/21/17 06:00 Respiratory Rate 20 11/21/17 06:00 Blood Pressure 177/65 11/21/17 06:00 O2 Sat by Pulse Oximetry (%) 92 L 11/20/17 21:00 Constitutional: Yes: Well Nourished, No Distress, Calm Cardiovascular: Yes: Regular Rate and Rhythm, S1, S2. No: Gallop, Murmur Respiratory: Yes: Regular, Wheezes (faint, bilat). No: Accessory Muscle Use, Rales Extremities: No: Cold Edema: No Neurological: Yes: Alert, Oriented Psychiatric: No: Agitated Labs: CBC, BMP 11/21/17 06:36 11/21/17 06:36 Assessment/Plan ECG x3: NSR, LBBB--no change vs prior CXR: clear lungs/pleura CT head 11/18 (during ER visit): no acute pathology MRI brain: no acute pathology or change vs prior hyponatremia: -sec to SIADH in the past, doubt med induced -renal consult appreciated -Na down 111 this am--hypertonic saline started per renal -will resume tele monitoring until Na more stable SCHROEDER, dizzy, neck pain: -CT head unremarkable -unrelated to her BPs, as she tolerates moderately elevated BPs for many yrs and is near her baseline BP range -neuro following HTN: -systolic BP ranging 130s-180s here -from memory, this is very c/w her prior baseline, for which she declined further med trials or office f/u -tolerates amlodipine long time -intolerant of ARB i believe previously -would avoid thiazides and spironolactone given potential to exacerbate hyponatremia -HR 50s-60s, on the low side for trial of b-rebeka or clonidine (though possible she would tolerate these) -recommend trial of low dose hydralazine, though i am not convinced patient will comply with BID dosing at home -started hydral 10mg BID here -bp's stable at her baseline range. will try to incr hydral 20 bid later if tolerating, if bp remains >160 consistently (note: NOT assctd with hyponatremia or SIADH)
[2017-11-21] MEDS ORDERED: SODIUM CHLORIDE 1 GM TABLET PO SCH ×2 (08:45→14:00)
[2017-11-21] MEDS ORDERED: SODIUM CHLORIDE 3% 250 ML IVPB ONE ×2 (08:45→12:04)
[2017-11-21] MEDS ORDERED: PT OWN MED DRAWER 7, Y5N ONE (08:48)
[2017-11-21] MEDS: hydrALAZINE HCL 10 MG TABLET PO SCH ×2 (09:04→22:51)
[2017-11-21] MEDS: ASPIRIN COATED 81 MG TABLET.EC PO SCH (09:04)
[2017-11-21] MEDS: MULTIVITAMINS (DAILY MVI) TABLET (FP) PO SCH (09:04)
[2017-11-21] MEDS: amLODIPine BESYLATE 10 MG TABLET (FP) PO SCH (09:04)
[2017-11-21] MEDS: CALCIUM 500MG/VIT-D 200 UNITS COMBO TABLET (FP) PO SCH (09:04)
[2017-11-21] MEDS: HEPARIN NA (PORCINE) 5,000 UNITS/ML 1ML VIAL SQ SCH ×2 (09:05→22:49)
[2017-11-21] MEDS: BUDESONIDE/FORMETEROL FUMARATE 160/4.5 mcg INHALER IH SCH (09:05)
--- NOTE | 2017-11-21 09:33 | PN ---
Progress Note (short form) - Note Progress Note: Neurology History of Present Illness The patient is a 82 year old female with a past medical history of HTN and COPD who presented to the emergency department with dizziness for 4 days. She reported that she was seen at this emergency department on Tuesday for similar symptoms and seen by me then. She reported that her dizziness recurred at home though she was doing well during my evaluation then. Her dizziness is exacerbated when standing and walking. She completed MRI brain overnight and did not show acute changes, reports noted same as one in 2015. Feels slightly better this morning in terms of dizzyness but having headache and some neck pain. She is sitting in chair. Getting ongoing treatment for hyponatremia. Active Medications Acetaminophen (Tylenol -) 650 mg PO Q6H PRN PRN Reason: HEADACHE Last Admin: 11/21/17 07:44 Dose: 650 mg Albuterol Sulfate (Ventolin 0.083% Nebulizer Soln -) 1 amp NEB Q6H PRN PRN Reason: SHORT OF BREATH/WHEEZING Last Admin: 11/20/17 15:05 Dose: 1 amp Amlodipine Besylate (Norvasc -) 10 mg PO DAILY [facility] Last Admin: 11/21/17 09:04 Dose: 10 mg Aspirin (Ecotrin -) 81 mg PO DAILY [facility] Last Admin: 11/21/17 09:04 Dose: 81 mg Atorvastatin Calcium (Lipitor -) 10 mg PO HS [facility] Last Admin: 11/20/17 21:37 Dose: 10 mg Budesonide/Formoterol Fumarate (Symbicort 160/4.5mcg -) 1 puff IH DAILY [facility] Last Admin: 11/21/17 09:05 Dose: 1 puff Calcium Carbonate/Cholecalciferol (Os-Maurice 500+D -) 1 tab PO DAILY [facility] Last Admin: 11/21/17 09:04 Dose: 1 tab Heparin Sodium (Porcine) (Heparin -) 5,000 unit SQ BID [facility] Last Admin: 11/21/17 09:05 Dose: 5,000 unit Hydralazine HCl (Apresoline -) 10 mg PO BID [facility] Last Admin: 11/21/17 09:04 Dose: 10 mg Sodium Chloride (Sodium Chloride 3%) 250 mls @ 50 mls/hr IVPB ONCE ONE Stop: 11/21/17 13:44 Meclizine HCl (Antivert -) 25 mg PO TID [facility] Last Admin: 05/14/18 05:23 Dose: 25 mg Multivitamins/Minerals/Vitamin C (Tab-A-Vit -) 1 tab PO DAILY [facility] Last Admin: 11/21/17 09:04 Dose: 1 tab Sodium Chloride (Sodium Chloride Tablet -) 1 gm PO TID [facility] Last Admin: 11/21/17 09:04 Dose: 1 gm *Physical Exam Vital Signs Temperature 97.0 F L 11/21/17 06:00 Pulse Rate 62 11/21/17 06:00 Respiratory Rate 20 11/21/17 06:00 Blood Pressure 177/65 11/21/17 06:00 O2 Sat by Pulse Oximetry (%) 92 L 11/20/17 21:00 GENERAL: The patient is in no acute distress. HEAD: Normal with no signs of trauma. EYES: PERRLA, EOMI, sclera anicteric, conjunctiva clear. ENT: Ears normal, nares patent, oropharynx clear without exudates. Moist mucous membranes. NECK: Normal range of motion, supple without lymphadenopathy, JVD, or masses. LUNGS: Breath sounds equal, clear to auscultation bilaterally. (+) Bilateral wheezes, no crackles. HEART:Regular rate and rhythm, normal S1 and S2 without murmur, rub or gallop. ABDOMEN: Soft, nontender, normoactive bowel sounds. No guarding, no rebound. EXTREMITIES: Normal range of motion, no edema. No clubbing or cyanosis. No erythema, or tenderness. NEUROLOGICAL: CN intact, strength symetric, sensory intact, gait deferred MUSCULOSKELETAL: Back nontender to palpation, no CVA tenderness SKIN: Warm, Dry, normal turgor, no rashes or lesions noted. CBCD WBC 4.7 K/mm3 (4.0-10.0) 11/21/17 06:36 RBC 3.91 M/mm3 (3.60-5.2) 11/21/17 06:36 Hgb 12.3 GM/dL (10.7-15.3) 11/21/17 06:36 Hct 35.3 % (32.4-45.2) 11/21/17 06:36 MCV 90.2 fl (80-96) 11/21/17 06:36 MCHC 34.7 g/dl (32.0-36.0) 11/21/17 06:36 RDW 14.1 % (11.6-15.6) 11/21/17 06:36 Plt Count 276 K/MM3 (134-434) 11/21/17 06:36 MPV 7.9 fl (7.5-11.1) 11/21/17 06:36 CMP Sodium 111 mmol/L (136-145) L* 11/21/17 06:36 Potassium 3.8 mmol/L (3.5-5.1) 11/21/17 06:36 Chloride 76 mmol/L (98-107) L 11/21/17 06:36 Carbon Dioxide 26 mmol/L (21-32) 11/21/17 06:36 Anion Gap 9 (8-16) 11/21/17 06:36 BUN 6 mg/dL (7-18) L 11/21/17 06:36 Creatinine 0.4 mg/dL (0.55-1.02) L 11/21/17 06:36 Creat Clearance w eGFR > 60 (>60) 11/19/17 20:30 Calcium 7.6 mg/dL (8.5-10.1) L 11/21/17 06:36 Total Bilirubin 0.3 mg/dL (0.2-1.0) 11/19/17 20:30 AST 21 U/L (15-37) 11/19/17 20:30 ALT 18 U/L (12-78) 11/19/17 20:30 Alkaline Phosphatase 80 U/L (45-117) 11/19/17 20:30 Total Protein 6.6 g/dl (6.4-8.2) 11/19/17 20:30 Albumin 3.9 g/dl (3.4-5.0) 11/19/17 20:30 CT head reviewed, no acute changes MRI brain reviewed and no acute changes Plan: 82 year old female with a past medical history of HTN and COPD who presented to the emergency department with dizziness for 4 days. She reported that she was seen at this emergency department on Tuesday for similar symptoms and seen by me then. She reported that her dizziness recurred at home though she was doing well during my evaluation then. Her dizziness is exacerbated when standing and walking. She reports associated unsteady gait, headache, neck pain, back pain, and increased thirst. She had CT head at that time and acute changes noted. MRI brain completed and reviewed with patient, no acute changes, no cerebellar infarct. No sudden head movements. Hydration recommended. Can continue meclezine , if this is not effective, Valium can be tried, low dose 2mg. Continue management of hyponatremia, renal following. Will add fioricet for headache, likely tension type.
[2017-11-21] MEDS: ACETAMINOPHEN/CAFFEINE/BUTALBITAL 1 TAB PO PRN (10:16)
--- NOTE | 2017-11-21 12:26 | PN ---
Progress Note (short form) - Note Progress Note: Renal Follow up for Hyponatremia Pt seen and examined at the bedside awake and alert but somewhat confused says that she seems disoriented no chest pain, sob, abd pian no N/V, seizures unclear how much water she drank yesterday Vital Signs Temperature 98.4 F 11/21/17 10:00 Pulse Rate 67 11/21/17 10:00 Respiratory Rate 18 11/21/17 10:00 Blood Pressure 175/74 11/21/17 10:00 O2 Sat by Pulse Oximetry (%) 97 11/21/17 09:00 NAD MMM, No JVD RRR, NO m/R CTA soft NT/ND NO LE edema CBC, BMP 11/21/17 06:36 11/21/17 06:36 Current Medications Acetaminophen (Tylenol -) 650 mg PO Q6H PRN PRN Reason: HEADACHE Last Admin: 11/21/17 07:44 Dose: 650 mg Acetaminophen/Butalbital/Caffeine (Fioricet -) 1 tablet PO Q6H PRN PRN Reason: HEADACHE Last Admin: 11/21/17 10:16 Dose: 1 tablet Albuterol Sulfate (Ventolin 0.083% Nebulizer Soln -) 1 amp NEB Q6H PRN PRN Reason: SHORT OF BREATH/WHEEZING Last Admin: 11/20/17 15:05 Dose: 1 amp Amlodipine Besylate (Norvasc -) 10 mg PO DAILY [facility] Last Admin: 11/21/17 09:04 Dose: 10 mg Aspirin (Ecotrin -) 81 mg PO DAILY [facility] Last Admin: 11/21/17 09:04 Dose: 81 mg Atorvastatin Calcium (Lipitor -) 10 mg PO HS [facility] Last Admin: 11/20/17 21:37 Dose: 10 mg Budesonide/Formoterol Fumarate (Symbicort 160/4.5mcg -) 1 puff IH DAILY [facility] Last Admin: 11/21/17 09:05 Dose: 1 puff Calcium Carbonate/Cholecalciferol (Os-Maurice 500+D -) 1 tab PO DAILY [facility] Last Admin: 11/21/17 09:04 Dose: 1 tab Heparin Sodium (Porcine) (Heparin -) 5,000 unit SQ BID [facility] Last Admin: 11/21/17 09:05 Dose: 5,000 unit Hydralazine HCl (Apresoline -) 10 mg PO BID [facility] Last Admin: 11/21/17 09:04 Dose: 10 mg Sodium Chloride (Sodium Chloride 3%) 250 mls @ 40 mls/hr IVPB ONCE ONE Stop: 11/21/17 14:59 Meclizine HCl (Antivert -) 25 mg PO TID [facility] Last Admin: 11/21/17 05:23 Dose: 25 mg Multivitamins/Minerals/Vitamin C (Tab-A-Vit -) 1 tab PO DAILY [facility] Last Admin: 11/21/17 09:04 Dose: 1 tab 82 year old woman with 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 Nickerson Neurology following MRI of the head showed no acute pathology consider CT of the chest w/o contrast to r/o malignancy given smoking history and SIADH Humberto Rick DO
--- NOTE | 2017-11-21 12:44 | PN ---
Progress Note, Physician Chief Complaint: Na drop, headaches and neck pain d/w renal and cardiology and neurology; will transfer to ICU for closer monitoring IV NaCl 3% and po NaCl tabs per renal d/w neurology: no prophylactic anti-seizure meds indicated, they could also decrease Na further per neuro - Current Medication List Current Medications: Active Medications Acetaminophen (Tylenol -) 650 mg PO Q6H PRN PRN Reason: HEADACHE Last Admin: 11/21/17 07:44 Dose: 650 mg Acetaminophen/Butalbital/Caffeine (Fioricet -) 1 tablet PO Q6H PRN PRN Reason: HEADACHE Last Admin: 11/21/17 10:16 Dose: 1 tablet Albuterol Sulfate (Ventolin 0.083% Nebulizer Soln -) 1 amp NEB Q6H PRN PRN Reason: SHORT OF BREATH/WHEEZING Last Admin: 11/20/17 15:05 Dose: 1 amp Amlodipine Besylate (Norvasc -) 10 mg PO DAILY [facility] Last Admin: 11/21/17 09:04 Dose: 10 mg Aspirin (Ecotrin -) 81 mg PO DAILY [facility] Last Admin: 11/21/17 09:04 Dose: 81 mg Atorvastatin Calcium (Lipitor -) 10 mg PO HS [facility] Last Admin: 11/20/17 21:37 Dose: 10 mg Budesonide/Formoterol Fumarate (Symbicort 160/4.5mcg -) 1 puff IH DAILY [facility] Last Admin: 11/21/17 09:05 Dose: 1 puff Calcium Carbonate/Cholecalciferol (Os-Maurice 500+D -) 1 tab PO DAILY [facility] Last Admin: 11/21/17 09:04 Dose: 1 tab Heparin Sodium (Porcine) (Heparin -) 5,000 unit SQ BID [facility] Last Admin: 11/21/17 09:05 Dose: 5,000 unit Hydralazine HCl (Apresoline -) 10 mg PO BID [facility] Last Admin: 11/21/17 09:04 Dose: 10 mg Sodium Chloride (Sodium Chloride 3%) 250 mls @ 40 mls/hr IVPB ONCE ONE Stop: 11/21/17 14:59 Meclizine HCl (Antivert -) 25 mg PO TID [facility] Last Admin: 11/21/17 05:23 Dose: 25 mg Multivitamins/Minerals/Vitamin C (Tab-A-Vit -) 1 tab PO DAILY [facility] Last Admin: 11/21/17 09:04 Dose: 1 tab - Objective Vital Signs: Vital Signs Temperature 98.4 F 11/21/17 10:00 Pulse Rate 67 11/21/17 10:00 Respiratory Rate 18 11/21/17 10:00 Blood Pressure 175/74 11/21/17 10:00 O2 Sat by Pulse Oximetry (%) 97 11/21/17 09:00 Constitutional: Yes: No Distress, Calm Eyes: Yes: Conjunctiva Clear HENT: Yes: Atraumatic Neck: Yes: Supple Cardiovascular: Yes: Regular Rate and Rhythm Respiratory: Yes: CTA Bilaterally Gastrointestinal: Yes: Soft. No: Distention, Tenderness Genitourinary: No: CVA Tenderness - Left, CVA Tenderness - Right Musculoskeletal: No: Joint Stiffness, Joint Swelling Extremities: No: Cold, Cool Edema: No Integumentary: No: Rash, Venous Stasis Changes Neurological: Yes: WNL, Alert, Oriented ...Motor Strength: WNL Psychiatric: Yes: WNL, Alert, Oriented. No: Agitated, Suicidal Ideation Labs: CBC, BMP 11/21/17 06:36 11/21/17 06:36 - ....Imaging Other: Report Reviewed Assessment/Plan A/P 82 year old female with a past medical history of HTN and COPD admitted with persistent dizziness, unsteady gait, headache, neck pain, back pain, and increased thirst. Head CT negative but Na dropping further despite treatment most likely reset ds/ SIADH; also HTN d/w renal dr Rick: transfer to ICU for closer monitoring; IV hypertonic solution and po Na per renal; restrict free water po d/w neuro dr Leiva and cardio dr Isaacs BP control, Na control; MRI brain done also d/w pt and staff falls PFX do not get OOB alone risks falls; bed alarm prognosis guarded; t time 40 min d/w pt and her family; they agreed with plan
[2017-11-21 13:33] LABS: ANION GAP 9 (8-16); BLOOD UREA NITROGEN 9 mg/dL (7-18); CALCIUM 7.8 mg/dL (8.5-10.1); CHLORIDE 76 mmol/L (98-107); CO2 25 mmol/L (21-32); CREATININE 0.4 mg/dL (0.55-1.02); GLUCOSE,RANDOM 119 mg/dL (74-106); POTASSIUM 3.7 mmol/L (3.5-5.1)
[2017-11-21 14:00] LABS: SODIUM 110 mmol/L (136-145)
--- NOTE | 2017-11-21 14:30 | CONSULT ---
Consultation: REQUESTING PROVIDER: CONSULT REQUEST: We have been asked to medically evaluate this patient for ( specify). HISTORY OF PRESENT ILLNESS: Patient is an 82 year old female with a PMH of HTN and hyponatremia. Patient notes she started developing a headache last Tuesday (11/16) and headache increased in severity prompting her visit to the ED on 11/18 at which time she was noted to be hyponatremic (131) and was given a salt tablet and discharged home. Patient states her headache persisted prompting a return visit to the ED the next day (11/19) at which time Na+ was noted to be 118. Patient was admitted to inpatient medical floor and transferred to ICU for continuing hyponatremia. Patient's @ bedside notes some confusion of day and night. Patient endorses mild headache, denies nausea, denies numbness, denies tingling. Tolerating PO intake. REVIEW OF SYSTEMS: CONSTITUTIONAL: Absent: fever, chills, diaphoresis, generalized weakness, malaise, loss of appetite, weight change HEENT: Absent: rhinorrhea, nasal congestion, throat pain, throat swelling, difficulty swallowing, mouth swelling, ear pain, eye pain, visual changes CARDIOVASCULAR: Absent: chest pain, syncope, palpitations, irregular heart rate, lightheadedness , peripheral edema RESPIRATORY: Absent: cough, shortness of breath, dyspnea with exertion, orthopnea, wheezing, stridor, hemoptysis GASTROINTESTINAL: Absent: abdominal pain, abdominal distension, nausea, vomiting, diarrhea, constipation, melena, hematochezia GENITOURINARY: Absent: dysuria, frequency, urgency, hesitancy, hematuria, flank pain, genital pain MUSCULOSKELETAL: Absent: myalgia, arthralgia, joint swelling, back pain, neck pain SKIN: Absent: rash, itching, pallor HEMATOLOGIC/IMMUNOLOGIC: Absent: easy bleeding, easy bruising, lymphadenopathy, frequent infections ENDOCRINE: Absent: unexplained weight gain, unexplained weight loss, heat intolerance, cold intolerance NEUROLOGIC: Positive: Headache Absent: focal weakness or paresthesias, dizziness, unsteady gait, seizure, mental status changes, bladder or bowel incontinence PSYCHIATRIC: Absent: anxiety, depression, suicidal or homicidal ideation, hallucinations. PHYSICAL EXAMINATION Vital Signs - 24 hr 11/20/17 11/20/17 11/20/17 15:07 15:24 18:07 Temperature 98 F 98.2 F Pulse Rate 69 63 66 Respiratory 20 18 Rate Blood Pressure 148/58 149/56 O2 Sat by Pulse 92 L Oximetry (%) 11/20/17 11/21/17 11/21/17 21:00 06:00 09:00 Temperature 98.0 F 97.0 F L Pulse Rate 65 62 Respiratory 20 20 Rate Blood Pressure 157/67 177/65 O2 Sat by Pulse 92 L 97 Oximetry (%) 11/21/17 11/21/17 10:00 14:00 Temperature 98.4 F 98.8 F Pulse Rate 67 70 Respiratory 18 16 Rate Blood Pressure 175/74 164/53 O2 Sat by Pulse Oximetry (%) GENERAL: Awake, alert, and fully oriented, in no acute distress. HEAD: Normal with no signs of trauma. EYES: Pupils equal, round and reactive to light, extraocular movements intact, sclera anicteric, conjunctiva clear. No lid lag. EARS, NOSE, THROAT: Ears normal, nares patent, oropharynx clear without exudates. Moist mucous membranes. NECK: Normal range of motion, supple without lymphadenopathy, JVD, or masses. LUNGS: Breath sounds equal, clear to auscultation bilaterally. No wheezes, and no crackles. No accessory muscle use. HEART: Regular rate and rhythm, normal S1 and S2 without murmur, rub or gallop. ABDOMEN: Soft, nontender, not distended, normoactive bowel sounds, no guarding, no rebound, no masses. No hepatomegaly or splenomegaly. PSYCHIATRIC: Cooperative. Good eye contact. Appropriate mood and affect. SKIN: Warm, dry, normal turgor, no rashes or lesions noted. Laboratory Results - last 24 hr 11/21/17 11/21/17 11/21/17 06:36 06:36 06:36 WBC 4.7 RBC 3.91 Hgb 12.3 Hct 35.3 MCV 90.2 MCH 31.3 MCHC 34.7 RDW 14.1 Plt Count 276 MPV 7.9 Neutrophils % 73.8 Lymphocytes % 12.5 Monocytes % 11.2 H Eosinophils % 2.0 Basophils % 0.5 Sodium 111 L* Potassium 3.8 Chloride 76 L Carbon Dioxide 26 Anion Gap 9 BUN 6 L Creatinine 0.4 L Random Glucose 104 Serum Osmolality Cancelled 227 L Uric Acid Cancelled Calcium 7.6 L TSH Cancelled Urine Osmolality Ur Random Sodium 05/11/21/17 11/21/17 06:36 11:30 11:30 WBC RBC Hgb Hct MCV MCH MCHC RDW Plt Count MPV Neutrophils % Lymphocytes % Monocytes % Eosinophils % Basophils % Sodium Cancelled Potassium Chloride Carbon Dioxide Anion Gap BUN Creatinine Random Glucose Serum Osmolality Uric Acid Calcium TSH Urine Osmolality 458 Ur Random Sodium 116 11/21/17 11:45 WBC RBC Hgb Hct MCV MCH MCHC RDW Plt Count MPV Neutrophils % Lymphocytes % Monocytes % Eosinophils % Basophils % Sodium 110 L* Potassium 3.7 Chloride 76 L Carbon Dioxide 25 Anion Gap 9 BUN 9 Creatinine 0.4 L Random Glucose 119 H Serum Osmolality Uric Acid Calcium 7.8 L TSH Urine Osmolality Ur Random Sodium Active Medications Generic Name Dose Route Start Last Admin Trade Name Freq PRN Reason Stop Dose Admin Acetaminophen 650 mg 11/20/17 09:35 11/21/17 07:44 Tylenol - PO 650 mg Q6H PRN Administration HEADACHE Acetaminophen/Butalbital/Caffeine 1 tablet 11/21/17 09:34 11/21/17 10:16 Fioricet - PO 1 tablet Q6H PRN Administration HEADACHE Albuterol Sulfate 1 amp 11/20/17 00:06 11/20/17 15:05 Ventolin 0.083% Nebulizer Soln - NEB 1 amp Q6H PRN Administration SHORT OF BREATH/WHEEZING Amlodipine Besylate 10 mg 11/20/17 10:00 11/21/17 09:04 Norvasc - PO 10 mg DAILY [facility] Administration Aspirin 81 mg 11/20/17 10:00 11/21/17 09:04 Ecotrin - PO 81 mg DAILY [facility] Administration Atorvastatin Calcium 10 mg 11/19/17 22:00 11/20/17 21:37 Lipitor - PO 10 mg HS [facility] Administration Budesonide/Formoterol Fumarate 1 puff 11/20/17 10:00 11/21/17 09:05 Symbicort 160/4.5mcg - IH 1 puff DAILY [facility] Administration Calcium Carbonate/Cholecalciferol 1 tab 11/20/17 10:00 11/21/17 09:04 Os-Maurice 500+D - PO 1 tab DAILY [facility] Administration Heparin Sodium (Porcine) 5,000 unit 11/19/17 22:00 11/21/17 09:05 Heparin - SQ 5,000 unit BID [facility] Administration Hydralazine HCl 10 mg 11/20/17 11:15 11/21/17 09:04 Apresoline - PO 10 mg BID [facility] Administration Sodium Chloride 250 mls @ 40 mls/hr 11/21/17 12:04 11/21/17 12:05 Sodium Chloride 3% IVPB 11/21/17 14:59 40 mls/hr ONCE ONE Administration Meclizine HCl 25 mg 11/20/17 14:00 11/21/17 13:23 Antivert - PO 25 mg TID [facility] Administration Multivitamins/Minerals/Vitamin C 1 tab 11/20/17 10:00 11/21/17 09:04 Tab-A-Vit - PO 1 tab DAILY [facility] Administration ASSESSMENT/PLAN: Patient is a 82 year old female with a PMH of SIADH (w/intermittent hyponatremic episodes), HTN, COPD who presented with symptomatic hyponatremia ( 121) and transferred to ICU today (11/21) for worsening hyponatremia (Na+ 111 @ presentation). Endorses SCHROEDER, denies nausea, tingling, numbness. 1. HYPONATREMIA 2/2 to SIADH - Na 111 today (11/21) <-- 121 <--118 - Continue hypertonic saline @ 50 cc/hour - Avoid over-correction of > 0.5 meq/hour - Na+ check q4H - Fluid restriction 1 L daily - Nephrology following, appreciate recs 2. PRIMARY ESSENTIAL HTN - BP range 150's-170's/50's-70's - Continue home medication regimen: Amlodipine 10 mg QD 3. COPD - B/L wheezing asculated on PE - Non-tachypneic, breathing comfortably (non-labored respirations, no accessory muscle use) on room air - Not on home O2 - Continue to monitor w/home Albuterol, Symbicort PROPHYLAXIS Heparin SQ SCDs FEN - Electrolyte monitoring as above - Regular Diet w/1 L fluid restriction DISPOSITION: Transfer to inpatient medical floor once hyponatremia resolving Visit type - Emergency Visit Emergency Visit: No - New Patient This patient is new to me today: Yes Date on this admission: 11/22/17 - Critical Care Critical Care patient: No
[2017-11-21 14:52] LABS: URIC ACID 1.3 mg/dL (2.6-7.2)
--- NOTE | 2017-11-21 15:48 | PN ---
Teaching Attending Note Name of Resident: Josefa Nettles ATTENDING PHYSICIAN STATEMENT I saw and evaluated the patient. I reviewed the resident's note and discussed the case with the resident. I agree with the resident's findings and plan as documented. SUBJECTIVE: Pt seen and examined in the ICU. Briefly, 82yo female with h/o HTN, COPD, SIADH on salt tabs at home who was admitted with dizziness found to hyponatremic to 120. Was in the ER for dizziness and was discharged on meclizine, sodium at that time 131. Started on NS but sodium level continued to decrease, now down to 110. Evaluated by renal, started on hypertonic saline, transferred to the ICU for closer monitoring. c/o mild headache but without nausea or vomiting. OBJECTIVE: Last Vital Signs Temp Pulse Resp BP Pulse Ox 98.8 F 70 16 164/53 97 11/21/17 14:00 11/21/17 14:00 11/21/17 14:00 11/21/17 14:00 11/21/17 14:00 Intake & Output 11/18/17 11/19/17 11/20/17 11/21/17 23:59 23:59 23:59 23:59 Intake Total 34 894 370 Output Total 300 400 Balance 34 594 -30 Weight 46.629 kg 48.9 g Gen: NAD at rest Heart: RRR Lung: scattered wheezes Abd: soft, nontender Ext: no edema CBC, BMP 11/21/17 06:36 11/21/17 11:45 Active Medications Acetaminophen (Tylenol -) 650 mg PO Q6H PRN PRN Reason: HEADACHE Last Admin: 11/21/17 07:44 Dose: 650 mg Acetaminophen/Butalbital/Caffeine (Fioricet -) 1 tablet PO Q6H PRN PRN Reason: HEADACHE Last Admin: 11/21/17 10:16 Dose: 1 tablet Albuterol Sulfate (Ventolin 0.083% Nebulizer Soln -) 1 amp NEB Q6H PRN PRN Reason: SHORT OF BREATH/WHEEZING Last Admin: 11/20/17 15:05 Dose: 1 amp Amlodipine Besylate (Norvasc -) 10 mg PO DAILY [facility] Last Admin: 11/21/17 09:04 Dose: 10 mg Aspirin (Ecotrin -) 81 mg PO DAILY [facility] Last Admin: 11/21/17 09:04 Dose: 81 mg Atorvastatin Calcium (Lipitor -) 10 mg PO HS [facility] Last Admin: 11/20/17 21:37 Dose: 10 mg Budesonide/Formoterol Fumarate (Symbicort 160/4.5mcg -) 1 puff IH DAILY [facility] Last Admin: 11/21/17 09:05 Dose: 1 puff Calcium Carbonate/Cholecalciferol (Os-Maurice 500+D -) 1 tab PO DAILY [facility] Last Admin: 11/21/17 09:04 Dose: 1 tab Heparin Sodium (Porcine) (Heparin -) 5,000 unit SQ BID [facility] Last Admin: 11/21/17 09:05 Dose: 5,000 unit Hydralazine HCl (Apresoline -) 10 mg PO BID [facility] Last Admin: 11/21/17 09:04 Dose: 10 mg Meclizine HCl (Antivert -) 25 mg PO TID [facility] Last Admin: 11/21/17 13:23 Dose: 25 mg Multivitamins/Minerals/Vitamin C (Tab-A-Vit -) 1 tab PO DAILY [facility] Last Admin: 11/21/17 09:04 Dose: 1 tab ASSESSMENT AND PLAN: Severe Euvolemic Hyponatremia h/o SIADH HTN COPD - continue hypertonic saline - close monitoring of BMP - do not correct more than 0.5mEq/hr - monitor serum, urine osms - TFTs, cortisol level - fluid restriction - neuro checks - inhaled bronchodilators as needed - DVT prophylaxis - continue ICU monitoring critical care time spent in reviewing chart, evaluating patient and formulating plan 35 min
[2017-11-21 21:22] LABS: ANION GAP 9 (8-16); BLOOD UREA NITROGEN 9 mg/dL (7-18); CALCIUM 7.3 mg/dL (8.5-10.1); CHLORIDE 83 mmol/L (98-107); CO2 26 mmol/L (21-32); CREATININE 0.4 mg/dL (0.55-1.02); GLUCOSE,RANDOM 113 mg/dL (74-106); POTASSIUM 3.6 mmol/L (3.5-5.1)
[2017-11-21 21:24] LABS: SODIUM 118 mmol/L (136-145)
--- NOTE | 2017-11-21 22:13 | PN ---
Progress Note (short form) - Note Progress Note: Repeat BMP shows Na+ 118. Sodium has corrected 8meq w/in 8 hours. Over a 16 hour period, the correction rate is ~0.45cc/hr Pt currently has hypertonic saline 250cc bag (almost finished) Spoke w/ Dr Rick, agrees to hold hypertonic saline. Continue fluid restriction. Repeat Na+ at midnight. Nurse to inform Dr Rick of results Patient seen and examined. States headache has improved. No mental status changes [employer] long
[2017-11-21] MEDS: ATORVASTATIN CA 10 MG TABLET (FP) PO SCH (22:49)
[2017-11-22] MEDS: MECLIZINE HCL 25 MG TABLET (FP) PO SCH ×3 (05:54→21:49)
[2017-11-22] MEDS ORDERED: PT OWN MED DRAWER 7, Y5N ONE ×3 (05:56→21:45)
[2017-11-22 06:18] LABS: HEMATOCRIT 33.6 % (32.4-45.2); HEMOGLOBIN 11.8 GM/dL (10.7-15.3); MCH 31.4 pg (25.7-33.7); MCHC 35.1 g/dl (32.0-36.0); MEAN CELL VOLUME 89.5 fl (80-96); MEAN PLT VOLUME 7.8 fl (7.5-11.1); PLATELET COUNT 247 K/MM3 (134-434); RBC 3.76 M/mm3 (3.60-5.2); RDW 14.5 % (11.6-15.6); WHITE BLOOD COUNT 4.3 K/mm3 (4.0-10.0)
[2017-11-22 06:58] LABS: ALBUMIN 3.4 g/dl (3.4-5.0); ANION GAP 8 (8-16); BLOOD UREA NITROGEN 6 mg/dL (7-18); CALCIUM 7.3 mg/dL (8.5-10.1); CHLORIDE 83 mmol/L (98-107); CO2 27 mmol/L (21-32); GLUCOSE,RANDOM 99 mg/dL (74-106); POTASSIUM 3.6 mmol/L (3.5-5.1)
[2017-11-22 07:03] LABS: ALK PHOS 82 U/L (45-117); BILIRUBIN,TOTAL 0.5 mg/dL (0.2-1.0); CREATININE 0.3 mg/dL (0.55-1.02); SGOT/AST 23 U/L (15-37); SGPT/ALT 20 U/L (12-78); TOT PROT 6.1 g/dl (6.4-8.2)
--- NOTE | 2017-11-22 07:21 | PN ---
Progress Note, Physician Chief Complaint: in ICU Na 110 then 118; feels better less headaches no new c/o BP still high but better controlled d/w neuro: most likely headaches are secondary to low Na, and increased BP secondary to Headaches pain meds prn all consults tests and meds reviewed and d/w pt - Current Medication List Current Medications: Active Medications Acetaminophen (Tylenol -) 650 mg PO Q6H PRN PRN Reason: HEADACHE Last Admin: 11/21/17 22:49 Dose: 650 mg Acetaminophen/Butalbital/Caffeine (Fioricet -) 1 tablet PO Q6H PRN PRN Reason: HEADACHE Last Admin: 11/21/17 10:16 Dose: 1 tablet Albuterol Sulfate (Ventolin 0.083% Nebulizer Soln -) 1 amp NEB Q6H PRN PRN Reason: SHORT OF BREATH/WHEEZING Last Admin: 11/20/17 15:05 Dose: 1 amp Amlodipine Besylate (Norvasc -) 10 mg PO DAILY [facility] Last Admin: 11/21/17 09:04 Dose: 10 mg Aspirin (Ecotrin -) 81 mg PO DAILY [facility] Last Admin: 11/21/17 09:04 Dose: 81 mg Atorvastatin Calcium (Lipitor -) 10 mg PO HS [facility] Last Admin: 11/21/17 22:49 Dose: 10 mg Budesonide/Formoterol Fumarate (Symbicort 160/4.5mcg -) 1 puff IH DAILY [facility] Last Admin: 11/21/17 09:05 Dose: 1 puff Calcium Carbonate/Cholecalciferol (Os-Maurice 500+D -) 1 tab PO DAILY [facility] Last Admin: 11/21/17 09:04 Dose: 1 tab Heparin Sodium (Porcine) (Heparin -) 5,000 unit SQ BID [facility] Last Admin: 11/21/17 22:49 Dose: 5,000 unit Hydralazine HCl (Apresoline -) 10 mg PO BID [facility] Last Admin: 11/21/17 22:51 Dose: 10 mg Meclizine HCl (Antivert -) 25 mg PO TID [facility] Last Admin: 11/22/17 05:54 Dose: 25 mg Multivitamins/Minerals/Vitamin C (Tab-A-Vit -) 1 tab PO DAILY [facility] Last Admin: 11/21/17 09:04 Dose: 1 tab - Objective Vital Signs: Vital Signs Temperature 98.3 F 0515/18 05:44 Pulse Rate 64 11/22/17 05:44 Respiratory Rate 17 11/22/17 05:44 Blood Pressure 169/71 11/22/17 05:44 O2 Sat by Pulse Oximetry (%) 91 L 11/21/17 20:13 Constitutional: Yes: No Distress, Calm Eyes: Yes: Conjunctiva Clear HENT: Yes: Atraumatic Neck: Yes: Supple Cardiovascular: Yes: Regular Rate and Rhythm Respiratory: Yes: CTA Bilaterally Gastrointestinal: Yes: Soft. No: Distention, Tenderness Genitourinary: No: CVA Tenderness - Left, CVA Tenderness - Right Musculoskeletal: No: Joint Stiffness, Joint Swelling Extremities: No: Cold, Cool, Cyanosis Edema: No Integumentary: No: Rash, Venous Stasis Changes Neurological: Yes: WNL, Alert, Oriented ...Motor Strength: WNL Psychiatric: Yes: WNL, Alert, Oriented. No: Agitated, Suicidal Ideation Labs: CBC, BMP 11/22/17 05:50 11/22/17 05:50 - ....Imaging Other: Report Reviewed Assessment/Plan A/P 82 year old female with a past medical history of HTN and COPD admitted with persistent dizziness, unsteady gait, headache, neck pain, back pain, and increased thirst. 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
--- NOTE | 2017-11-22 07:34 | PN ---
Physical Exam: SUBJECTIVE: Headache improved, denies any nausea, abdominal pain, numbness/ tingling. Last BM this morning prior to examination, normal. Tolerating PO intake. OBJECTIVE: Vital Signs Period Temp Pulse Resp BP Sys/Lubin Pulse Ox Last 24 Hr 97.8 F-98.8 F 59-71 15-21 152-175/52-74 91-97 GENERAL: The patient is awake, alert, and fully oriented, in no acute distress. HEAD: Normal with no signs of trauma. EYES: PERRL, extraocular movements intact, sclera anicteric, conjunctiva clear. No ptosis. NECK: Trachea midline, full range of motion, supple. LUNGS: Breath sounds equal, clear to auscultation bilaterally, B/L wheezes no crackles, no accessory muscle use. HEART: Regular rate and rhythm, S1, S2 without murmur, rub or gallop. EXTREMITIES: 2+ pulses, warm, well-perfused, no edema, SCD's in place PSYCH: Normal mood, normal affect. SKIN: Warm, dry, normal turgor, no rashes or lesions noted Laboratory Results - last 24 hr 11/21/17 11/21/17 11/21/17 06:36 06:36 06:36 WBC 4.7 RBC 3.91 Hgb 12.3 Hct 35.3 MCV 90.2 MCH 31.3 MCHC 34.7 RDW 14.1 Plt Count 276 MPV 7.9 Neutrophils % 73.8 Lymphocytes % 12.5 Monocytes % 11.2 H Eosinophils % 2.0 Basophils % 0.5 Sodium 111 L* Potassium 3.8 Chloride 76 L Carbon Dioxide 26 Anion Gap 9 BUN 6 L Creatinine 0.4 L Creat Clearance w eGFR Random Glucose 104 Serum Osmolality Cancelled 227 L Uric Acid 1.3 L* D Cancelled Calcium 7.6 L Total Bilirubin AST ALT Alkaline Phosphatase Total Protein Albumin TSH 2.60 Cancelled Cortisol AM Sample Urine Osmolality Ur Random Sodium 11/21/17 11/21/17 11/21/17 06:36 11:30 11:30 WBC RBC Hgb Hct MCV MCH MCHC RDW Plt Count MPV Neutrophils % Lymphocytes % Monocytes % Eosinophils % Basophils % Sodium Cancelled Potassium Chloride Carbon Dioxide Anion Gap BUN Creatinine Creat Clearance w eGFR Random Glucose Serum Osmolality Uric Acid Calcium Total Bilirubin AST ALT Alkaline Phosphatase Total Protein Albumin TSH Cortisol AM Sample Urine Osmolality 458 Ur Random Sodium 116 05/14/18 05/14/18 05/14/18 11:45 11:45 20:00 WBC RBC Hgb Hct MCV MCH MCHC RDW Plt Count MPV Neutrophils % Lymphocytes % Monocytes % Eosinophils % Basophils % Sodium 110 L* 118 L* Potassium 3.7 3.6 Chloride 76 L 83 L Carbon Dioxide 25 26 Anion Gap 9 9 BUN 9 9 Creatinine 0.4 L 0.4 L Creat Clearance w eGFR Random Glucose 119 H 113 H Serum Osmolality Uric Acid Calcium 7.8 L 7.3 L Total Bilirubin AST ALT Alkaline Phosphatase Total Protein Albumin TSH Cortisol AM Sample 13.3 Urine Osmolality Ur Random Sodium 11/22/17 11/22/17 11/22/17 00:10 05:50 05:50 WBC 4.3 RBC 3.76 Hgb 11.8 Hct 33.6 MCV 89.5 MCH 31.4 MCHC 35.1 RDW 14.5 Plt Count 247 MPV 7.8 Neutrophils % Lymphocytes % Monocytes % Eosinophils % Basophils % Sodium 119 L* Potassium 3.6 Chloride 83 L Carbon Dioxide 27 Anion Gap 8 BUN 6 L Creatinine 0.3 L Creat Clearance w eGFR > 60 Random Glucose 99 Serum Osmolality Uric Acid Calcium 7.3 L Total Bilirubin 0.5 D AST 23 ALT 20 Alkaline Phosphatase 82 Total Protein 6.1 L Albumin 3.4 TSH Cortisol AM Sample Urine Osmolality Ur Random Sodium Active Medications Generic Name Dose Route Start Last Admin Trade Name Freq PRN Reason Stop Dose Admin Acetaminophen 650 mg 11/20/17 09:35 11/21/17 22:49 Tylenol - PO 650 mg Q6H PRN Administration HEADACHE Acetaminophen/Butalbital/Caffeine 1 tablet 11/21/17 09:34 11/21/17 10:16 Fioricet - PO 1 tablet Q6H PRN Administration HEADACHE Albuterol Sulfate 1 amp 11/20/17 00:06 11/20/17 15:05 Ventolin 0.083% Nebulizer Soln - NEB 1 amp Q6H PRN Administration SHORT OF BREATH/WHEEZING Amlodipine Besylate 10 mg 11/20/17 10:00 11/21/17 09:04 Norvasc - PO 10 mg DAILY [facility] Administration Aspirin 81 mg 11/20/17 10:00 11/21/17 09:04 Ecotrin - PO 81 mg DAILY [facility] Administration Atorvastatin Calcium 10 mg 11/19/17 22:00 11/21/17 22:49 Lipitor - PO 10 mg HS [facility] Administration Budesonide/Formoterol Fumarate 1 puff 11/20/17 10:00 11/21/17 09:05 Symbicort 160/4.5mcg - IH 1 puff DAILY [facility] Administration Calcium Carbonate/Cholecalciferol 1 tab 11/20/17 10:00 11/21/17 09:04 Os-Maurice 500+D - PO 1 tab DAILY [facility] Administration Heparin Sodium (Porcine) 5,000 unit 11/19/17 22:00 11/21/17 22:49 Heparin - SQ 5,000 unit BID [facility] Administration Hydralazine HCl 10 mg 11/20/17 11:15 11/21/17 22:51 Apresoline - PO 10 mg BID [facility] Administration Meclizine HCl 25 mg 11/20/17 14:00 11/22/17 05:54 Antivert - PO 25 mg TID [facility] Administration Multivitamins/Minerals/Vitamin C 1 tab 11/20/17 10:00 11/21/17 09:04 Tab-A-Vit - PO 1 tab DAILY [facility] Administration ASSESSMENT/PLAN: Patient is a 82 year old female with a PMH of SIADH (w/intermittent hyponatremic episodes), HTN, COPD who presented with symptomatic hyponatremia ( 121) and transferred to ICU today (11/21) for worsening hyponatremia (Na+ 111 @ presentation). Endorses SCHROEDER, denies nausea, tingling, numbness. 1. HYPONATREMIA 2/2 to SIADH - Na 119 overnight <-- Na 111 <-- 121 <--118 - Correction rate 0.45 meq/hr - held hypertonic saline overnight; will restart @ 25 mL/hour - Avoid over-correction of > 0.5 meq/hour - Na+ check q4H - Fluid restriction 1 L daily - Nephrology following, appreciate recs 2. PRIMARY ESSENTIAL HTN - Overnight BP range 150's-170's/50's-70's - Continue home medication regimen: Amlodipine 10 mg QD 3. COPD - B/L wheezing asculated on PE - Non-tachypneic, breathing comfortably (non-labored respirations, no accessory muscle use) on room air - Not on home O2 - Duo Nebs QID - Continue to monitor w/home Albuterol, Symbicort PROPHYLAXIS Heparin SQ SCDs FEN - Electrolyte monitoring as above - Regular Diet w/1 L fluid restriction DISPOSITION: Transfer to inpatient medical floor once hyponatremia resolving Visit type - Emergency Visit Emergency Visit: No - New Patient This patient is new to me today: No - Critical Care Critical Care patient: No
[2017-11-22 07:54] LABS: SODIUM 118 mmol/L (136-145)
[2017-11-22] MEDS ORDERED: SODIUM CHLORIDE 3% 500 ML/500 ML INFUS.BAG IV ONE ×3 (08:03→18:15)
[2017-11-22] MEDS: amLODIPine BESYLATE 10 MG TABLET (FP) PO SCH ×2 (08:17→10:08)
[2017-11-22] MEDS: ACETAMINOPHEN/CAFFEINE/BUTALBITAL 1 TAB PO PRN (08:42)
[2017-11-22] MEDS: hydrALAZINE HCL 10 MG TABLET PO SCH ×3 (08:46→21:49)
[2017-11-22] MEDS: ASPIRIN COATED 81 MG TABLET.EC PO SCH (09:15)
[2017-11-22] MEDS: MULTIVITAMINS (DAILY MVI) TABLET (FP) PO SCH (09:16)
[2017-11-22] MEDS: CALCIUM 500MG/VIT-D 200 UNITS COMBO TABLET (FP) PO SCH (09:16)
[2017-11-22] MEDS: HEPARIN NA (PORCINE) 5,000 UNITS/ML 1ML VIAL SQ SCH ×2 (09:16→21:50)
[2017-11-22] MEDS: BUDESONIDE/FORMETEROL FUMARATE 160/4.5 mcg INHALER IH SCH (09:19)
--- NOTE | 2017-11-22 09:58 | PN ---
Progress Note (short form) - Note Progress Note: Neurology History of Present Illness The patient is a 82 year old female with a past medical history of HTN and COPD who presented to the emergency department with dizziness for 4 days. She reported that she was seen at this emergency department on Tuesday for similar symptoms and seen by me then. She reported that her dizziness recurred at home though she was doing well during my evaluation then. Her dizziness is exacerbated when standing and walking. She completed MRI brain overnight and did not show acute changes, reports noted same as one in 2015.Getting ongoing treatment for hyponatremia and overnight required transfer to ICU where she is getting critical care management for hyponatremia whihc had decreased to 110. Is awake, alert, interactive and oriented. Still with headaches though getting fioricet. Will start her on Topamax as well for headache 25mg twice daily. Neck pain has improved. Active Medications Acetaminophen (Tylenol -) 650 mg PO Q6H PRN PRN Reason: HEADACHE Last Admin: 11/21/17 22:49 Dose: 650 mg Acetaminophen/Butalbital/Caffeine (Fioricet -) 1 tablet PO Q6H PRN PRN Reason: HEADACHE Last Admin: 11/22/17 08:42 Dose: 1 tablet Albuterol Sulfate (Ventolin 0.083% Nebulizer Soln -) 1 amp NEB Q6H PRN PRN Reason: SHORT OF BREATH/WHEEZING Last Admin: 11/20/17 15:05 Dose: 1 amp Amlodipine Besylate (Norvasc -) 10 mg PO DAILY [facility] Last Admin: 11/22/17 08:17 Dose: 10 mg Aspirin (Ecotrin -) 81 mg PO DAILY [facility] Last Admin: 11/22/17 09:15 Dose: 81 mg Atorvastatin Calcium (Lipitor -) 10 mg PO HS [facility] Last Admin: 11/21/17 22:49 Dose: 10 mg Budesonide/Formoterol Fumarate (Symbicort 160/4.5mcg -) 1 puff IH DAILY [facility] Last Admin: 11/22/17 09:19 Dose: 1 puff Calcium Carbonate/Cholecalciferol (Os-Maurice 500+D -) 1 tab PO DAILY [facility] Last Admin: 11/22/17 09:16 Dose: 1 tab Heparin Sodium (Porcine) (Heparin -) 5,000 unit SQ BID [facility] Last Admin: 11/22/17 09:16 Dose: 5,000 unit Hydralazine HCl (Apresoline -) 10 mg PO BID [facility] Last Admin: 11/22/17 08:46 Dose: 10 mg Sodium Chloride (Sodium Chloride 3%) 500 ml in 500 mls @ 25 mls/hr IV ASDIR ONE Stop: 11/23/17 04:02 Last Admin: 11/22/17 09:41 Dose: 25 mls/hr Meclizine HCl (Antivert -) 25 mg PO TID [facility] Last Admin: 11/22/17 05:54 Dose: 25 mg Multivitamins/Minerals/Vitamin C (Tab-A-Vit -) 1 tab PO DAILY [facility] Last Admin: 11/22/17 09:16 Dose: 1 tab Topiramate (Topamax -) 25 mg PO BID [facility] *Physical Exam Vital Signs Temperature 97.8 F 11/22/17 08:00 Pulse Rate 65 11/22/17 08:00 Respiratory Rate 16 11/22/17 08:00 Blood Pressure 179/96 11/22/17 08:00 O2 Sat by Pulse Oximetry (%) 98 11/22/17 07:59 GENERAL: The patient is in no acute distress. HEAD: Normal with no signs of trauma. EYES: PERRLA, EOMI, sclera anicteric, conjunctiva clear. ENT: Ears normal, nares patent, oropharynx clear without exudates. Moist mucous membranes. NECK: Normal range of motion, supple without lymphadenopathy, JVD, or masses. LUNGS: Breath sounds equal, clear to auscultation bilaterally. (+) Bilateral wheezes, no crackles. HEART:Regular rate and rhythm, normal S1 and S2 without murmur, rub or gallop. ABDOMEN: Soft, nontender, normoactive bowel sounds. No guarding, no rebound. EXTREMITIES: Normal range of motion, no edema. No clubbing or cyanosis. No erythema, or tenderness. NEUROLOGICAL: CN intact, strength symetric, sensory intact, gait deferred MUSCULOSKELETAL: Back nontender to palpation, no CVA tenderness SKIN: Warm, Dry, normal turgor, no rashes or lesions noted. CBCD WBC 4.3 K/mm3 (4.0-10.0) 11/22/17 05:50 RBC 3.76 M/mm3 (3.60-5.2) 11/22/17 05:50 Hgb 11.8 GM/dL (10.7-15.3) 11/22/17 05:50 Hct 33.6 % (32.4-45.2) 11/22/17 05:50 MCV 89.5 fl (80-96) 11/22/17 05:50 MCHC 35.1 g/dl (32.0-36.0) 11/22/17 05:50 RDW 14.5 % (11.6-15.6) 11/22/17 05:50 Plt Count 247 K/MM3 (134-434) 11/22/17 05:50 MPV 7.8 fl (7.5-11.1) 11/22/17 05:50 CMP Sodium 118 mmol/L (136-145) L* 11/22/17 05:50 Potassium 3.6 mmol/L (3.5-5.1) 11/22/17 05:50 Chloride 83 mmol/L (98-107) L 11/22/17 05:50 Carbon Dioxide 27 mmol/L (21-32) 11/22/17 05:50 Anion Gap 8 (8-16) 11/22/17 05:50 BUN 6 mg/dL (7-18) L 11/22/17 05:50 Creatinine 0.3 mg/dL (0.55-1.02) L 11/22/17 05:50 Creat Clearance w eGFR > 60 (>60) 11/22/17 05:50 Calcium 7.3 mg/dL (8.5-10.1) L 11/22/17 05:50 Total Bilirubin 0.5 mg/dL (0.2-1.0) D 11/22/17 05:50 AST 23 U/L (15-37) 11/22/17 05:50 ALT 20 U/L (12-78) 11/22/17 05:50 Alkaline Phosphatase 82 U/L (45-117) 11/22/17 05:50 Total Protein 6.1 g/dl (6.4-8.2) L 11/22/17 05:50 Albumin 3.4 g/dl (3.4-5.0) 11/22/17 05:50 CT head reviewed, no acute changes MRI brain reviewed and no acute changes Plan: 82 year old female with a past medical history of HTN and COPD who presented to the emergency department with dizziness for 4 days. She reported that she was seen at this emergency department on Tuesday for similar symptoms and seen by me then. She reported that her dizziness recurred at home though she was doing well during my evaluation then. Her dizziness is exacerbated when standing and walking. She reports associated unsteady gait, headache, neck pain, back pain, and increased thirst. She had CT head at that time and acute changes noted. MRI brain completed and reviewed with patient, no acute changes, no cerebellar infarct. Patient in critical care monitoring in ICU for hyponatremia down to sodium of 110, No sudden head movements. Hydration recommended. Can continue meclezine. Added Topamax for headache 25mg twice daily. Can continue fioricet PRN. Continue management of hyponatremia, renal following. Critical care time 35 mins.
[2017-11-22] MEDS: TOPIRAMATE 25 MG TABLET (FP) PO SCH ×2 (11:45→21:49)
[2017-11-22] MEDS: ALBUTEROL SO4 0.083% IH SOL 2.5 MG/3 ML VIAL.NEB. NEB SCH ×3 (11:55→20:50)
[2017-11-22 12:17] VITALS: BMI 20.4
--- NOTE | 2017-11-22 12:17 | PN ---
Teaching Attending Note Name of Resident: Josefa Nettles ATTENDING PHYSICIAN STATEMENT I saw and evaluated the patient. I reviewed the resident's note and discussed the case with the resident. I agree with the resident's findings and plan as documented. SUBJECTIVE: Pt seen and examined in the ICU. Hypertonic saline stopped overnight, resumed this AM. c/o mild headache without nausea or vomiting. Tolerating PO. OBJECTIVE: Last Vital Signs Temp Pulse Resp BP Pulse Ox 97.5 F L 67 17 169/56 98 11/22/17 12:00 11/22/17 12:00 11/22/17 12:00 11/22/17 12:00 11/22/17 07:59 Intake & Output 11/19/17 11/20/17 11/21/17 11/22/17 23:59 23:59 23:59 23:59 Intake Total 34 894 810 370 Output Total 300 401 400 Balance 34 594 409 -30 Weight 46.629 kg 48.9 g 49.351 kg Gen: NAD at rest Heart: RRR Lung: decreased breath sounds at the bases Abd: soft, nontender Ext: no edema CBC, BMP 11/22/17 05:50 11/22/17 05:50 Active Medications Acetaminophen (Tylenol -) 650 mg PO Q6H PRN PRN Reason: HEADACHE Last Admin: 11/21/17 22:49 Dose: 650 mg Acetaminophen/Butalbital/Caffeine (Fioricet -) 1 tablet PO Q6H PRN PRN Reason: HEADACHE Last Admin: 11/22/17 08:42 Dose: 1 tablet Albuterol Sulfate (Ventolin 0.083% Nebulizer Soln -) 1 amp NEB RQID [facility] Last Admin: 11/22/17 11:55 Dose: Not Given Amlodipine Besylate (Norvasc -) 10 mg PO DAILY [facility] Last Admin: 11/22/17 10:08 Dose: Not Given Aspirin (Ecotrin -) 81 mg PO DAILY [facility] Last Admin: 11/22/17 09:15 Dose: 81 mg Atorvastatin Calcium (Lipitor -) 10 mg PO HS [facility] Last Admin: 11/21/17 22:49 Dose: 10 mg Budesonide/Formoterol Fumarate (Symbicort 160/4.5mcg -) 1 puff IH DAILY [facility] Last Admin: 11/22/17 09:19 Dose: 1 puff Calcium Carbonate/Cholecalciferol (Os-Maurice 500+D -) 1 tab PO DAILY [facility] Last Admin: 11/22/17 09:16 Dose: 1 tab Heparin Sodium (Porcine) (Heparin -) 5,000 unit SQ BID [facility] Last Admin: 11/22/17 09:16 Dose: 5,000 unit Hydralazine HCl (Apresoline -) 10 mg PO BID [facility] Last Admin: 11/22/17 10:08 Dose: Not Given Sodium Chloride (Sodium Chloride 3%) 500 ml in 500 mls @ 25 mls/hr IV [facility] ONE Stop: 11/23/17 04:02 Last Admin: 11/22/17 09:41 Dose: 25 mls/hr Meclizine HCl (Antivert -) 25 mg PO TID [facility] Last Admin: 11/22/17 05:54 Dose: 25 mg Multivitamins/Minerals/Vitamin C (Tab-A-Vit -) 1 tab PO DAILY [facility] Last Admin: 11/22/17 09:16 Dose: 1 tab Topiramate (Topamax -) 25 mg PO BID [facility] Last Admin: 11/22/17 11:45 Dose: 25 mg ASSESSMENT AND PLAN: Severe Euvolemic Hyponatremia h/o SIADH HTN COPD - continue hypertonic saline - close monitoring of BMP - do not correct more than 0.5mEq/hr - monitor serum, urine osms - fluid restriction - neuro checks - inhaled bronchodilators as needed - DVT prophylaxis - continue ICU monitoring critical care time spent in reviewing chart, evaluating patient and formulating plan 35 min
--- NOTE | 2017-11-22 12:36 | PN ---
Progress Note (short form) - Note Progress Note: Chief Complaint: SCHROEDER/hyponatremia S: Transferred to ICU last night. con't on 3% saline (was briefly held overnight after serum na increased to 118). no cp, palps, dizziness, sob. H/a/ neck pain persists but is improving. Current Medications Acetaminophen (Tylenol -) 650 mg PO Q6H PRN PRN Reason: HEADACHE Last Admin: 11/21/17 22:49 Dose: 650 mg Acetaminophen/Butalbital/Caffeine (Fioricet -) 1 tablet PO Q6H PRN PRN Reason: HEADACHE Last Admin: 11/22/17 08:42 Dose: 1 tablet Albuterol Sulfate (Ventolin 0.083% Nebulizer Soln -) 1 amp NEB RQID [facility] Last Admin: 11/22/17 11:55 Dose: Not Given Amlodipine Besylate (Norvasc -) 10 mg PO DAILY [facility] Last Admin: 11/22/17 10:08 Dose: Not Given Aspirin (Ecotrin -) 81 mg PO DAILY [facility] Last Admin: 11/22/17 09:15 Dose: 81 mg Atorvastatin Calcium (Lipitor -) 10 mg PO HS [facility] Last Admin: 11/21/17 22:49 Dose: 10 mg Budesonide/Formoterol Fumarate (Symbicort 160/4.5mcg -) 1 puff IH DAILY [facility] Last Admin: 11/22/17 09:19 Dose: 1 puff Calcium Carbonate/Cholecalciferol (Os-Maurice 500+D -) 1 tab PO DAILY [facility] Last Admin: 11/22/17 09:16 Dose: 1 tab Heparin Sodium (Porcine) (Heparin -) 5,000 unit SQ BID [facility] Last Admin: 11/22/17 09:16 Dose: 5,000 unit Hydralazine HCl (Apresoline -) 10 mg PO BID [facility] Last Admin: 11/22/17 10:08 Dose: Not Given Sodium Chloride (Sodium Chloride 3%) 500 ml in 500 mls @ 25 mls/hr IV [facility] ONE Stop: 11/23/17 04:02 Last Admin: 11/22/17 09:41 Dose: 25 mls/hr Meclizine HCl (Antivert -) 25 mg PO TID [facility] Last Admin: 11/22/17 05:54 Dose: 25 mg Multivitamins/Minerals/Vitamin C (Tab-A-Vit -) 1 tab PO DAILY [facility] Last Admin: 11/22/17 09:16 Dose: 1 tab Topiramate (Topamax -) 25 mg PO BID [facility] Last Admin: 11/22/17 11:45 Dose: 25 mg - Objective Vital Signs: Vital Signs - 24 hr 11/21/17 11/21/17 11/21/17 14:00 16:00 20:00 Temperature 98.8 F Pulse Rate 70 69 67 Respiratory 16 15 21 Rate Blood Pressure 164/53 161/57 158/57 O2 Sat by Pulse 97 Oximetry (%) 11/21/17 11/21/17 11/22/17 20:13 22:00 00:11 Temperature 98.2 F Pulse Rate 71 61 Respiratory 18 17 18 Rate Blood Pressure 171/60 153/60 O2 Sat by Pulse 91 L Oximetry (%) 11/22/17 11/22/17 11/22/17 02:00 04:00 05:44 Temperature 97.8 F 98.3 F Pulse Rate 59 L 62 64 Respiratory 18 18 17 Rate Blood Pressure 152/55 163/52 169/71 O2 Sat by Pulse Oximetry (%) 11/22/17 11/22/17 11/22/17 07:59 08:00 10:00 Temperature 97.8 F 97.7 F Pulse Rate 65 65 Respiratory 16 15 Rate Blood Pressure 179/96 168/54 O2 Sat by Pulse 98 Oximetry (%) 11/22/17 11/22/17 12:00 14:00 Temperature 97.5 F L 97.5 F L Pulse Rate 67 65 Respiratory 17 17 Rate Blood Pressure 169/56 158/57 O2 Sat by Pulse Oximetry (%) 11/22/17 16:00 Temperature 97.7 F Pulse Rate 64 Respiratory 18 Rate Blood Pressure 140/50 O2 Sat by Pulse Oximetry (%) Intake & Output 11/20/17 11/21/17 11/22/17 11/23/17 07:59 07:59 07:59 07:59 Intake Total 082 645 7795 Output Total 300 801 Balance 28 600 379 Weight 102 lb 12.8 oz 108 lb 12.8 oz 108 lb Constitutional: Yes: Well Nourished, No Distress, Calm Cardiovascular: Yes: Regular Rate and Rhythm, S1, S2. No: Gallop, Murmur jvd flat, neck supple Respiratory: Yes: Regular, Wheezes (faint, bilat). No: Accessory Muscle Use, Rales + bs soft nt nd. Extremities: No: Cold. + dp/pt Edema: No Neurological: Yes: Alert, Oriented Psychiatric: No: Agitated Labs: CBC, BMP 11/22/17 05:50 11/22/17 05:50 tele: sr/sb, pvc's. Assessment/Plan ECG x3: NSR, LBBB--no change vs prior CXR: clear lungs/pleura CT head 11/18 (during ER visit): no acute pathology MRI brain: no acute pathology or change vs prior A/P 82yo with pmhx of htn, hl, hyponatremia on salt tabs, copd, vertigo who p/w recurrent hyponatremia. hyponatremia: -sec to SIADH in the past, suspicion for siadh as etiology here. renal consult appreciated - on hypertonic saline per renal SCHROEDER, dizzy, neck pain: -CT head unremarkable -unrelated to her BPs, as she tolerates moderately elevated BPs for many yrs and is near her baseline BP range -neuro following HTN: -systolic BP ranging 130s-180s here. per dr. morel, this is very c/w her prior baseline, for which she declined further med trials or office f/u. has tolerated amlodipine long time. per dr. morel may have been intolerant of ARB previously. would avoid thiazides and spironolactone given potential to exacerbate hyponatremia. HR 50s-60s, on the low side for trial of b-rebeka or clonidine (though possible she would tolerate these) --> started on trial of hydral 10mg BID here. consider incr hydral 20 bid later if tolerating, if bp remains >160 consistently (note: NOT assctd with hyponatremia or SIADH) - 11/22: suboptimal bp control, but now trending down throughout the day. con't to monitor. If suboptimal control again tomorrow, consider increasing hydral to 20 mg bid. (discussed with neuro, no signs of cerebral edema on mri). cct: 35 min
--- NOTE | 2017-11-22 14:59 | PN ---
Progress Note (short form) - Note Progress Note: Renal Follow up for Hyponatremia Pt seen and examined in the ICU awake and alert reports feeling better denies any confusion, lethargy or seizure tolerating oral diet on 3% saline (was held overnight after serum na increased to 118) Vital Signs Temperature 97.5 F L 11/22/17 14:00 Pulse Rate 65 11/22/17 14:00 Respiratory Rate 17 11/22/17 14:00 Blood Pressure 158/57 11/22/17 14:00 O2 Sat by Pulse Oximetry (%) 98 11/22/17 07:59 Intake & Output 11/19/17 11/20/17 11/21/17 11/22/17 23:59 23:59 23:59 23:59 Intake Total 34 894 810 370 Output Total 300 401 400 Balance 34 594 409 -30 Weight 46.629 kg 48.9 g 48.988 kg NAD MMM, No JVD RRR, NO m/R CTA soft NT/ND NO LE edema CBC, BMP 11/22/17 05:50 11/22/17 12:20 Current Medications Acetaminophen (Tylenol -) 650 mg PO Q6H PRN PRN Reason: HEADACHE Last Admin: 11/21/17 22:49 Dose: 650 mg Acetaminophen/Butalbital/Caffeine (Fioricet -) 1 tablet PO Q6H PRN PRN Reason: HEADACHE Last Admin: 11/22/17 08:42 Dose: 1 tablet Albuterol Sulfate (Ventolin 0.083% Nebulizer Soln -) 1 amp NEB RQID [facility] Last Admin: 11/22/17 11:55 Dose: Not Given Amlodipine Besylate (Norvasc -) 10 mg PO DAILY [facility] Last Admin: 11/22/17 10:08 Dose: Not Given Aspirin (Ecotrin -) 81 mg PO DAILY [facility] Last Admin: 11/22/17 09:15 Dose: 81 mg Atorvastatin Calcium (Lipitor -) 10 mg PO HS [facility] Last Admin: 11/21/17 22:49 Dose: 10 mg Budesonide/Formoterol Fumarate (Symbicort 160/4.5mcg -) 1 puff IH DAILY [facility] Last Admin: 11/22/17 09:19 Dose: 1 puff Calcium Carbonate/Cholecalciferol (Os-Maurice 500+D -) 1 tab PO DAILY [facility] Last Admin: 11/22/17 09:16 Dose: 1 tab Heparin Sodium (Porcine) (Heparin -) 5,000 unit SQ BID [facility] Last Admin: 11/22/17 09:16 Dose: 5,000 unit Hydralazine HCl (Apresoline -) 10 mg PO BID [facility] Last Admin: 11/22/17 10:08 Dose: Not Given Sodium Chloride (Sodium Chloride 3%) 500 ml in 500 mls @ 40 mls/hr IV ASDIR ONE Stop: 11/22/17 20:32 Last Admin: 11/22/17 13:45 Dose: 40 mls/hr Meclizine HCl (Antivert -) 25 mg PO TID [facility] Last Admin: 11/22/17 13:20 Dose: 25 mg Multivitamins/Minerals/Vitamin C (Tab-A-Vit -) 1 tab PO DAILY [facility] Last Admin: 11/22/17 09:16 Dose: 1 tab Topiramate (Topamax -) 25 mg PO BID [facility] Last Admin: 11/22/17 11:45 Dose: 25 mg 82 year old woman with PMhx of 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
[2017-11-22 17:48] LABS: ANION GAP 9 (8-16); BLOOD UREA NITROGEN 7 mg/dL (7-18); CALCIUM 7.7 mg/dL (8.5-10.1); CHLORIDE 82 mmol/L (98-107); CO2 26 mmol/L (21-32); CREATININE 0.4 mg/dL (0.55-1.02); GLUCOSE,RANDOM 107 mg/dL (74-106); POTASSIUM 3.8 mmol/L (3.5-5.1)
[2017-11-22 17:53] LABS: SODIUM 117 mmol/L (136-145)
--- NOTE | 2017-11-22 18:17 | PN ---
Progress Note (short form) - Note Progress Note: NA back at 5 pm with 117 , DR Rick was informed and ask to increase the rate to 55 ml /hr of hypertonic saline will repeat NA level at 10 pm .
[2017-11-22] MEDS: ATORVASTATIN CA 10 MG TABLET (FP) PO SCH (21:49)
--- NOTE | 2017-11-22 22:38 | PN ---
Progress Note (short form) - Note Progress Note: Night ICU Resident Repeat Sodium 120. Turned off hypertonic saline. Started Salt tabs 1g TID starting now. Continue STRICT fluid restriction. Pt aware Dr Rick aware, agrees. Next BMP 6am.
[2017-11-22] MEDS: SODIUM CHLORIDE 1 GM TABLET PO SCH (23:13)
[2017-11-23] MEDS ORDERED: PT OWN MED DRAWER 7, Y5N ONE ×4 (04:41→10:53)
[2017-11-23] MEDS: SODIUM CHLORIDE 1 GM TABLET PO SCH ×3 (05:17→22:07)
--- NOTE | 2017-11-23 05:33 | PN ---
Progress Note, Physician Chief Complaint: in ICU Na 125 better, looks better, slept better no headaches no neck pain; at bedside, d/w pt and fluids restriction < 1L/day and to take po NaCl as advised. - Current Medication List Current Medications: Active Medications Acetaminophen (Tylenol -) 650 mg PO Q6H PRN PRN Reason: HEADACHE Last Admin: 11/21/17 22:49 Dose: 650 mg Acetaminophen/Butalbital/Caffeine (Fioricet -) 1 tablet PO Q6H PRN PRN Reason: HEADACHE Last Admin: 11/22/17 08:42 Dose: 1 tablet Albuterol Sulfate (Ventolin 0.083% Nebulizer Soln -) 1 amp NEB RQID [facility] Last Admin: 11/22/17 20:50 Dose: 1 amp Amlodipine Besylate (Norvasc -) 10 mg PO DAILY [facility] Last Admin: 11/22/17 10:08 Dose: Not Given Aspirin (Ecotrin -) 81 mg PO DAILY [facility] Last Admin: 11/22/17 09:15 Dose: 81 mg Atorvastatin Calcium (Lipitor -) 10 mg PO HS [facility] Last Admin: 11/22/17 21:49 Dose: 10 mg Budesonide/Formoterol Fumarate (Symbicort 160/4.5mcg -) 1 puff IH DAILY [facility] Last Admin: 11/22/17 09:19 Dose: 1 puff Calcium Carbonate/Cholecalciferol (Os-Maurice 500+D -) 1 tab PO DAILY [facility] Last Admin: 11/22/17 09:16 Dose: 1 tab Heparin Sodium (Porcine) (Heparin -) 5,000 unit SQ BID [facility] Last Admin: 11/22/17 21:50 Dose: 5,000 unit Hydralazine HCl (Apresoline -) 10 mg PO BID [facility] Last Admin: 11/22/17 21:49 Dose: 10 mg Meclizine HCl (Antivert -) 25 mg PO TID [facility] Last Admin: 11/22/17 21:49 Dose: 25 mg Multivitamins/Minerals/Vitamin C (Tab-A-Vit -) 1 tab PO DAILY [facility] Last Admin: 11/22/17 09:16 Dose: 1 tab Sodium Chloride (Sodium Chloride Tablet -) 1 gm PO TID [facility] Last Admin: 11/23/17 05:17 Dose: 1 gm Topiramate (Topamax -) 25 mg PO BID [facility] Last Admin: 11/22/17 21:49 Dose: 25 mg - Objective Vital Signs: Vital Signs Temperature 97.8 F 11/23/17 02:00 Pulse Rate 59 L 11/23/17 04:15 Respiratory Rate 11 L 11/23/17 04:15 Blood Pressure 160/95 11/23/17 04:15 O2 Sat by Pulse Oximetry (%) 98 11/22/17 20:16 Constitutional: Yes: No Distress, Calm Eyes: Yes: Conjunctiva Clear HENT: Yes: Atraumatic Neck: Yes: Supple Cardiovascular: Yes: Regular Rate and Rhythm Respiratory: Yes: CTA Bilaterally Gastrointestinal: Yes: Soft. No: Distention, Tenderness Genitourinary: No: CVA Tenderness - Left, CVA Tenderness - Right Musculoskeletal: No: Joint Stiffness, Joint Swelling Extremities: No: Cold, Cool, Cyanosis Edema: No Integumentary: No: Rash, Venous Stasis Changes Neurological: Yes: WNL, Alert, Oriented ...Motor Strength: WNL Psychiatric: Yes: WNL, Alert, Oriented. No: Agitated, Suicidal Ideation Labs: CBC, BMP 11/22/17 05:50 11/22/17 21:30 - ....Imaging Other: Report Reviewed Assessment/Plan A/P 82 year old female with a past medical history of HTN and COPD admitted with persistent dizziness, unsteady gait, headache, neck pain, back pain, and increased thirst. Head CT negative but Na dropping further despite treatment most likely reset ds/ SIADH; also HTN ICU monitoring, IV hypertonic solution and po Na per renal; restrict free water po close Na f/u; BP control, Na control; pain meds prn; DVT pfx; also d/w pt and staff falls PFX do not get OOB alone risks falls; bed alarm prognosis guarded; t time 40 min d.w ICU staff d/w pt and they agreed with plan
[2017-11-23 06:13] LABS: BASO % 0.5 % (0-2.0); EOS % 4.3 % (0-4.5); HEMATOCRIT 35.2 % (32.4-45.2); HEMOGLOBIN 12.2 GM/dL (10.7-15.3); MCH 31.7 pg (25.7-33.7); MCHC 34.8 g/dl (32.0-36.0); MEAN PLT VOLUME 8.2 fl (7.5-11.1); MONO % 15.7 % (3.8-10.2); NEUT % 65.5 % (42.8-82.8); PLATELET COUNT 241 K/MM3 (134-434); RBC 3.87 M/mm3 (3.60-5.2); RDW 14.8 % (11.6-15.6); WHITE BLOOD COUNT 3.9 K/mm3 (4.0-10.0)
[2017-11-23] MEDS: MECLIZINE HCL 25 MG TABLET (FP) PO SCH ×3 (06:13→22:06)
[2017-11-23 06:46] LABS: ALBUMIN 3.4 g/dl (3.4-5.0); ANION GAP 6 (8-16); BILIRUBIN,TOTAL 0.2 mg/dL (0.2-1.0); BLOOD UREA NITROGEN 6 mg/dL (7-18); CALCIUM 7.9 mg/dL (8.5-10.1); CHLORIDE 90 mmol/L (98-107); CO2 29 mmol/L (21-32); CREATININE 0.4 mg/dL (0.55-1.02); GLUCOSE,RANDOM 98 mg/dL (74-106); MAGNESIUM 1.9 mg/dL (1.8-2.4); PHOSPHOROUS 2.6 mg/dL (2.5-4.9); POTASSIUM 4.1 mmol/L (3.5-5.1); SGOT/AST 23 U/L (15-37); SGPT/ALT 21 U/L (12-78); SODIUM 125 mmol/L (136-145); TOT PROT 6.2 g/dl (6.4-8.2)
[2017-11-23 06:47] LABS: ALK PHOS 90 U/L (45-117)
[2017-11-23] MEDS: ALBUTEROL SO4 0.083% IH SOL 2.5 MG/3 ML VIAL.NEB. NEB SCH ×4 (08:00→21:39)
--- NOTE | 2017-11-23 09:27 | PN ---
Progress Note (short form) - Note Progress Note: Neurology History of Present Illness The patient is a 82 year old female with a past medical history of HTN and COPD who presented to the emergency department with dizziness for 4 days. She reported that she was seen at this emergency department on Tuesday for similar symptoms and seen by me then. She reported that her dizziness recurred at home though she was doing well during my evaluation then. Her dizziness is exacerbated when standing and walking. She completed MRI brain overnight and did not show acute changes, reports noted same as one in 2015.Getting ongoing treatment for hyponatremia and overnight required transfer to ICU where she is getting critical care management for hyponatremia whihc had decreased to 110, now improved to 125. Is awake, alert, interactive and oriented. Headaches improved with Topamax vs improved Na, unsure which played a greater role. Getting fioricet PRN. Neck pain has improved as well. at bedside and discussed with him as well. Active Medications Acetaminophen (Tylenol -) 650 mg PO Q6H PRN PRN Reason: HEADACHE Last Admin: 11/21/17 22:49 Dose: 650 mg Acetaminophen/Butalbital/Caffeine (Fioricet -) 1 tablet PO Q6H PRN PRN Reason: HEADACHE Last Admin: 11/22/17 08:42 Dose: 1 tablet Albuterol Sulfate (Ventolin 0.083% Nebulizer Soln -) 1 amp NEB RQID [facility] Last Admin: 11/23/17 08:00 Dose: 1 amp Amlodipine Besylate (Norvasc -) 10 mg PO DAILY [facility] Last Admin: 11/22/17 10:08 Dose: Not Given Aspirin (Ecotrin -) 81 mg PO DAILY [facility] Last Admin: 11/22/17 09:15 Dose: 81 mg Atorvastatin Calcium (Lipitor -) 10 mg PO HS [facility] Last Admin: 11/22/17 21:49 Dose: 10 mg Budesonide/Formoterol Fumarate (Symbicort 160/4.5mcg -) 1 puff IH DAILY [facility] Last Admin: 11/22/17 09:19 Dose: 1 puff Calcium Carbonate/Cholecalciferol (Os-Maurice 500+D -) 1 tab PO DAILY [facility] Last Admin: 11/22/17 09:16 Dose: 1 tab Heparin Sodium (Porcine) (Heparin -) 5,000 unit SQ BID [facility] Last Admin: 11/22/17 21:50 Dose: 5,000 unit Hydralazine HCl (Apresoline -) 20 mg PO BID [facility] Meclizine HCl (Antivert -) 25 mg PO TID [facility] Last Admin: 11/23/17 06:13 Dose: 25 mg Multivitamins/Minerals/Vitamin C (Tab-A-Vit -) 1 tab PO DAILY [facility] Last Admin: 11/22/17 09:16 Dose: 1 tab Sodium Chloride (Sodium Chloride Tablet -) 1 gm PO TID [facility] Last Admin: 11/23/17 05:17 Dose: 1 gm Topiramate (Topamax -) 25 mg PO BID [facility] Last Admin: 11/22/17 21:49 Dose: 25 mg *Physical Exam Vital Signs Period Temp Pulse Resp BP Sys/Lubin Pulse Ox Last 24 Hr 97.3 F-98.1 F 59-75 11-24 140-177/50-137 98 GENERAL: The patient is in no acute distress. HEAD: Normal with no signs of trauma. EYES: PERRLA, EOMI, sclera anicteric, conjunctiva clear. ENT: Ears normal, nares patent, oropharynx clear without exudates. Moist mucous membranes. NECK: Normal range of motion, supple without lymphadenopathy, JVD, or masses. LUNGS: Breath sounds equal, clear to auscultation bilaterally. (+) Bilateral wheezes, no crackles. HEART:Regular rate and rhythm, normal S1 and S2 without murmur, rub or gallop. ABDOMEN: Soft, nontender, normoactive bowel sounds. No guarding, no rebound. EXTREMITIES: Normal range of motion, no edema. No clubbing or cyanosis. No erythema, or tenderness. NEUROLOGICAL: CN intact, strength symetric, sensory intact, gait deferred MUSCULOSKELETAL: Back nontender to palpation, no CVA tenderness SKIN: Warm, Dry, normal turgor, no rashes or lesions noted. CBCD WBC 3.9 K/mm3 (4.0-10.0) L 11/23/17 05:55 RBC 3.87 M/mm3 (3.60-5.2) 11/23/17 05:55 Hgb 12.2 GM/dL (10.7-15.3) 11/23/17 05:55 Hct 35.2 % (32.4-45.2) 11/23/17 05:55 MCV 91.0 fl (80-96) 11/23/17 05:55 MCHC 34.8 g/dl (32.0-36.0) 11/23/17 05:55 RDW 14.8 % (11.6-15.6) 11/23/17 05:55 Plt Count 241 K/MM3 (134-434) 11/23/17 05:55 MPV 8.2 fl (7.5-11.1) 11/23/17 05:55 CMP Sodium 125 mmol/L (136-145) L 11/23/17 05:55 Potassium 4.1 mmol/L (3.5-5.1) 11/23/17 05:55 Chloride 90 mmol/L (98-107) L 11/23/17 05:55 Carbon Dioxide 29 mmol/L (21-32) 11/23/17 05:55 Anion Gap 6 (8-16) L 11/23/17 05:55 BUN 6 mg/dL (7-18) L 11/23/17 05:55 Creatinine 0.4 mg/dL (0.55-1.02) L 11/23/17 05:55 Creat Clearance w eGFR > 60 (>60) 11/23/17 05:55 Calcium 7.9 mg/dL (8.5-10.1) L 11/23/17 05:55 Total Bilirubin 0.2 mg/dL (0.2-1.0) D 11/23/17 05:55 AST 23 U/L (15-37) 11/23/17 05:55 ALT 21 U/L (12-78) 11/23/17 05:55 Alkaline Phosphatase 90 U/L (45-117) 11/23/17 05:55 Total Protein 6.2 g/dl (6.4-8.2) L 11/23/17 05:55 Albumin 3.4 g/dl (3.4-5.0) 11/23/17 05:55 CT head reviewed, no acute changes MRI brain reviewed and no acute changes Plan: 82 year old female with a past medical history of HTN and COPD who presented to the emergency department with dizziness for 4 days. She reported that she was seen at this emergency department on Tuesday for similar symptoms and seen by me then. She reported that her dizziness recurred at home though she was doing well during my evaluation then. Her dizziness is exacerbated when standing and walking. She reports associated unsteady gait, headache, neck pain, back pain, and increased thirst. She had CT head at that time and acute changes noted. MRI brain completed and reviewed with patient, no acute changes, no cerebellar infarct. Patient in critical care monitoring in ICU for hyponatremia down to sodium of 110, improved to 125 today. No sudden head movements. Hydration recommended. Can continue meclezine. Added Topamax for headache 25mg twice daily , has helped in conjunction with Na correction. Can continue fioricet PRN as well as TPM for now. Continue management of hyponatremia, renal following. Remains in ICU at this time. Critical care time 35 mins.
--- NOTE | 2017-11-23 09:51 | PN ---
Progress Note (short form) - Note Progress Note: Chief Complaint: SCHROEDER/hyponatremia S: feeling well. no cp, palps, dizziness, sob. Current Medications Generic Name Dose Route Start Last Admin Trade Name Freq PRN Reason Stop Dose Admin Acetaminophen 650 mg 11/20/17 09:35 11/21/17 22:49 Tylenol - PO 650 mg Q6H PRN Administration HEADACHE Acetaminophen/Butalbital/Caffeine 1 tablet 11/21/17 09:34 11/22/17 08:42 Fioricet - PO 1 tablet Q6H PRN Administration HEADACHE Albuterol Sulfate 1 amp 11/22/17 12:00 11/23/17 08:00 Ventolin 0.083% Nebulizer Soln - NEB 1 amp RQID [facility] Administration Amlodipine Besylate 10 mg 11/20/17 10:00 11/22/17 10:08 Norvasc - PO Not Given DAILY [facility] Aspirin 81 mg 11/20/17 10:00 11/22/17 09:15 Ecotrin - PO 81 mg DAILY [facility] Administration Atorvastatin Calcium 10 mg 11/19/17 22:00 11/22/17 21:49 Lipitor - PO 10 mg HS [facility] Administration Budesonide/Formoterol Fumarate 1 puff 11/20/17 10:00 11/22/17 09:19 Symbicort 160/4.5mcg - IH 1 puff DAILY [facility] Administration Calcium Carbonate/Cholecalciferol 1 tab 11/20/17 10:00 11/22/17 09:16 Os-Maurice 500+D - PO 1 tab DAILY [facility] Administration Heparin Sodium (Porcine) 5,000 unit 11/19/17 22:00 11/22/17 21:50 Heparin - SQ 5,000 unit BID [facility] Administration Hydralazine HCl 20 mg 11/23/17 10:00 Apresoline - PO BID [facility] Meclizine HCl 25 mg 11/20/17 14:00 11/23/17 06:13 Antivert - PO 25 mg TID [facility] Administration Multivitamins/Minerals/Vitamin C 1 tab 11/20/17 10:00 11/22/17 09:16 Tab-A-Vit - PO 1 tab DAILY [facility] Administration Sodium Chloride 1 gm 11/22/17 22:45 11/23/17 05:17 Sodium Chloride Tablet - PO 1 gm TID [facility] Administration Topiramate 25 mg 11/22/17 10:00 11/22/17 21:49 Topamax - PO 25 mg BID [facility] Administration - Objective Vital Signs: Vital Signs Period Temp Pulse Resp BP Sys/Lubin Pulse Ox Last 24 Hr 97.3 F-98.1 F 59-75 11-24 140-180/50-137 97-98 Constitutional: Yes: Well Nourished, No Distress, Calm Cardiovascular: Yes: Regular Rate and Rhythm, S1, S2. No: Gallop, Murmur jvd flat, neck supple Respiratory: Yes:cta bl. No: Accessory Muscle Use, Rales + bs soft nt nd. Edema: No Neurological: Yes: Alert, Oriented Psychiatric: No: Agitated Labs: CBC, BMP 11/23/17 05:55 11/23/17 05:55 tele: sr ECG x3: NSR, LBBB--no change vs prior CXR: clear lungs/pleura CT head 11/18 (during ER visit): no acute pathology MRI brain: no acute pathology or change vs prior A/P 82 yo with pmhx of htn, hl, hyponatremia on salt tabs, copd, vertigo who p/w recurrent hyponatremia. hyponatremia: -sec to SIADH in the past, suspicion for siadh as etiology here. -ivfs per renal, na improving SCHROEDER, dizzy, neck pain: -CT head unremarkable -unrelated to her BPs, as she tolerates moderately elevated BPs for many yrs and is near her baseline BP range -neuro following HTN: -systolic BP ranging 130s-180s here. per dr. morel, this is very c/w her prior baseline, for which she declined further med trials or office f/u. has tolerated amlodipine long time. per dr. morel may have been intolerant of ARB previously. would avoid thiazides and spironolactone given potential to exacerbate hyponatremia. HR 50s-60s, on the low side for trial of b-rebeka or clonidine (though possible she would tolerate these) --> started on trial of hydral 10mg BID here. consider incr hydral 20 bid later if tolerating, if bp remains >160 consistently (note: NOT assctd with hyponatremia or SIADH) - 11/22: suboptimal bp control, but now trending down throughout the day. con't to monitor. If suboptimal control again tomorrow, consider increasing hydral to 20 mg bid.-->increase to 20 bid today
[2017-11-23] MEDS: HEPARIN NA (PORCINE) 5,000 UNITS/ML 1ML VIAL SQ SCH ×2 (09:58→22:10)
[2017-11-23] MEDS: ASPIRIN COATED 81 MG TABLET.EC PO SCH (09:58)
[2017-11-23] MEDS: amLODIPine BESYLATE 10 MG TABLET (FP) PO SCH (09:58)
[2017-11-23] MEDS: CALCIUM 500MG/VIT-D 200 UNITS COMBO TABLET (FP) PO SCH (09:59)
[2017-11-23] MEDS: MULTIVITAMINS (DAILY MVI) TABLET (FP) PO SCH (10:00)
[2017-11-23] MEDS ORDERED: hydrALAZINE HCL 10 MG TABLET PO SCH (10:00)
[2017-11-23] MEDS: TOPIRAMATE 25 MG TABLET (FP) PO SCH ×2 (10:01→22:06)
[2017-11-23] MEDS: BUDESONIDE/FORMETEROL FUMARATE 160/4.5 mcg INHALER IH SCH (10:03)
[2017-11-23 11:36] LABS: ANION GAP 7 (8-16); BLOOD UREA NITROGEN 7 mg/dL (7-18); CALCIUM 7.8 mg/dL (8.5-10.1); CHLORIDE 90 mmol/L (98-107); CO2 29 mmol/L (21-32); CREATININE 0.4 mg/dL (0.55-1.02); GLUCOSE,RANDOM 110 mg/dL (74-106); POTASSIUM 3.8 mmol/L (3.5-5.1); SODIUM 126 mmol/L (136-145)
--- NOTE | 2017-11-23 12:16 | PN ---
Physical Exam: SUBJECTIVE: Patient awake, alert, SCHROEDER resolved. No active medical complaints. OBJECTIVE: Vital Signs Period Temp Pulse Resp BP Sys/Lubin Pulse Ox Last 24 Hr 97.3 F-98.1 F 59-75 11-24 128-180/47-137 97-98 GENERAL: The patient is awake, alert, and fully oriented, in no acute distress. HEAD: Normal with no signs of trauma. NECK: Trachea midline, full range of motion, supple. HEART: Regular rate and rhythm, S1, S2 without murmur, rub or gallop. ABDOMEN: Soft, nontender, nondistended, normoactive bowel sounds, no guarding, no rebound, no hepatosplenomegaly, no masses. EXTREMITIES: 2+ pulses, warm, well-perfused, no edema. Laboratory Results - last 24 hr 11/22/17 11/22/17 11/22/17 12:20 16:50 21:30 WBC RBC Hgb Hct MCV MCH MCHC RDW Plt Count MPV Neutrophils % Lymphocytes % Monocytes % Eosinophils % Basophils % Sodium 115 L* 117 L* 120 L* Potassium 3.8 Chloride 82 L Carbon Dioxide 26 Anion Gap 9 BUN 7 Creatinine 0.4 L Creat Clearance w eGFR Random Glucose 107 H Calcium 7.7 L Phosphorus Magnesium Total Bilirubin AST ALT Alkaline Phosphatase Total Protein Albumin 11/23/17 11/23/17 11/23/17 05:55 05:55 10:50 WBC 3.9 L RBC 3.87 Hgb 12.2 Hct 35.2 MCV 91.0 MCH 31.7 MCHC 34.8 RDW 14.8 Plt Count 241 MPV 8.2 Neutrophils % 65.5 Lymphocytes % 14.0 Monocytes % 15.7 H Eosinophils % 4.3 D Basophils % 0.5 Sodium 125 L 126 L Potassium 4.1 3.8 Chloride 90 L 90 L Carbon Dioxide 29 29 Anion Gap 6 L 7 L BUN 6 L 7 Creatinine 0.4 L 0.4 L Creat Clearance w eGFR > 60 Random Glucose 98 110 H Calcium 7.9 L 7.8 L Phosphorus 2.6 Magnesium 1.9 Total Bilirubin 0.2 D AST 23 ALT 21 Alkaline Phosphatase 90 Total Protein 6.2 L Albumin 3.4 Active Medications Generic Name Dose Route Start Last Admin Trade Name Freq PRN Reason Stop Dose Admin Acetaminophen 650 mg 11/20/17 09:35 11/21/17 22:49 Tylenol - PO 650 mg Q6H PRN Administration [facility]AC[facility] Acetaminophen/Butalbital/Caffeine 1 tablet 11/21/17 09:34 11/22/17 08:42 Fioricet - PO 1 tablet Q6H PRN Administration [facility] Albuterol Sulfate 1 amp 11/22/17 12:00 11/23/17 11:35 Ventolin 0.083% Nebulizer Soln - NEB 1 amp RQID [facility] Administration Amlodipine Besylate 10 mg 11/20/17 10:00 11/23/17 09:58 Norvasc - PO 10 mg DAILY [facility] Administration Aspirin 81 mg 11/20/17 10:00 11/23/17 09:58 Ecotrin - PO 81 mg DAILY [facility] Administration Atorvastatin Calcium 10 mg 11/19/17 22:00 11/22/17 21:49 Lipitor - PO 10 mg HS [facility] Administration Budesonide/Formoterol Fumarate 1 puff 11/20/17 10:00 11/23/17 10:03 Symbicort 160/4.5mcg - IH 1 puff DAILY [facility] Administration Calcium Carbonate/Cholecalciferol 1 tab 11/20/17 10:00 11/23/17 09:59 Os-Maurice 500+D - PO 1 tab DAILY [facility] Administration Heparin Sodium (Porcine) 5,000 unit 11/19/17 22:00 11/23/17 09:58 Heparin - SQ 5,000 unit BID [facility] Administration Hydralazine HCl 20 mg 11/23/17 10:00 11/23/17 09:57 Apresoline - PO 20 mg BID [facility] Administration Meclizine HCl 25 mg 11/20/17 14:00 11/23/17 06:13 Antivert - PO 25 mg TID [facility] Administration Multivitamins/Minerals/Vitamin C 1 tab 11/20/17 10:00 11/23/17 10:00 Tab-A-Vit - PO 1 tab DAILY [facility] Administration Sodium Chloride 1 gm 11/22/17 22:45 11/23/17 05:17 Sodium Chloride Tablet - PO 1 gm TID [facility] Administration Topiramate 25 mg 11/22/17 10:00 11/23/17 10:01 Topamax - PO 25 mg BID [facility] Administration ASSESSMENT/PLAN: Patient is a 82 year old female with a PMH of SIADH (w/intermittent hyponatremic episodes), HTN, COPD who presented with symptomatic hyponatremia ( 121) and transferred to ICU today (11/21) for worsening hyponatremia (Na+ 111 @ presentation). Endorses SCHROEDER, denies nausea, tingling, numbness. 1. HYPONATREMIA 2/2 to SIADH - Na 126 @ 0900 <-- 125 @ 0600 - Hypertonic saline stopped @ 0000 w/Na 120 - Avoid over-correction of > 0.5 meq/hour - Na+ check q4H - Fluid restriction 800 mL daily - Nephrology following, appreciate recs 2. PRIMARY ESSENTIAL HTN - Overnight BP range 150's-170's/50's-70's - Continue home medication regimen: Amlodipine 10 mg QD 3. COPD - B/L wheezing asculated on PE - Non-tachypneic, breathing comfortably (non-labored respirations, no accessory muscle use) on room air - Not on home O2 - Duo Nebs QID - Continue to monitor w/home Albuterol, Symbicort PROPHYLAXIS Heparin SQ SCDs FEN - Electrolyte monitoring as above - Regular Diet w/800 mL fluid restriction DISPOSITION: Patient stable for transfer to inpatient medical floor Visit type - Emergency Visit Emergency Visit: No - New Patient This patient is new to me today: No - Critical Care Critical Care patient: No
--- NOTE | 2017-11-23 12:47 | PN ---
Teaching Attending Note Name of Resident: Josefa Nettles ATTENDING PHYSICIAN STATEMENT I saw and evaluated the patient. I reviewed the resident's note and discussed the case with the resident. I agree with the resident's findings and plan as documented. SUBJECTIVE: Pt seen and examined in the ICU. Hypertonic saline stopped overnight. Sodium level improving. No further headaches. OBJECTIVE: Last Vital Signs Temp Pulse Resp BP Pulse Ox 98.1 F 69 11 L 158/47 97 11/23/17 10:00 11/23/17 12:00 11/23/17 12:00 11/23/17 12:00 11/23/17 09:00 Intake & Output 11/20/17 11/21/17 11/22/17 11/23/17 23:59 23:59 23:59 23:59 Intake Total 022 804 1329 220 Output Total 300 401 800 Balance 594 409 497 220 Weight 48.9 g 48.988 kg 50.122 kg Gen: NAD at rest Heart: RRR Lung: decreased breath sounds at the bases Abd: soft, nontender Ext: no edema CBC, BMP 11/23/17 05:55 11/23/17 10:50 Active Medications Acetaminophen (Tylenol -) 650 mg PO Q6H PRN PRN Reason: HEADACHE Last Admin: 11/21/17 22:49 Dose: 650 mg Acetaminophen/Butalbital/Caffeine (Fioricet -) 1 tablet PO Q6H PRN PRN Reason: HEADACHE Last Admin: 11/22/17 08:42 Dose: 1 tablet Albuterol Sulfate (Ventolin 0.083% Nebulizer Soln -) 1 amp NEB RQID [facility] Last Admin: 11/23/17 11:35 Dose: 1 amp Amlodipine Besylate (Norvasc -) 10 mg PO DAILY [facility] Last Admin: 11/23/17 09:58 Dose: 10 mg Aspirin (Ecotrin -) 81 mg PO DAILY [facility] Last Admin: 11/23/17 09:58 Dose: 81 mg Atorvastatin Calcium (Lipitor -) 10 mg PO HS [facility] Last Admin: 11/22/17 21:49 Dose: 10 mg Budesonide/Formoterol Fumarate (Symbicort 160/4.5mcg -) 1 puff IH DAILY [facility] Last Admin: 11/23/17 10:03 Dose: 1 puff Calcium Carbonate/Cholecalciferol (Os-Maurice 500+D -) 1 tab PO DAILY [facility] Last Admin: 11/23/17 09:59 Dose: 1 tab Heparin Sodium (Porcine) (Heparin -) 5,000 unit SQ BID [facility] Last Admin: 11/23/17 09:58 Dose: 5,000 unit Hydralazine HCl (Apresoline -) 20 mg PO BID [facility] Last Admin: 11/23/17 09:57 Dose: 20 mg Meclizine HCl (Antivert -) 25 mg PO TID [facility] Last Admin: 11/23/17 06:13 Dose: 25 mg Multivitamins/Minerals/Vitamin C (Tab-A-Vit -) 1 tab PO DAILY [facility] Last Admin: 11/23/17 10:00 Dose: 1 tab Sodium Chloride (Sodium Chloride Tablet -) 1 gm PO TID [facility] Last Admin: 11/23/17 05:17 Dose: 1 gm Topiramate (Topamax -) 25 mg PO BID [facility] Last Admin: 11/23/17 10:01 Dose: 25 mg ASSESSMENT AND PLAN: Severe Euvolemic Hyponatremia improving h/o SIADH HTN COPD - monitor lytes - strict fluid restriction - salt tabs - inhaled bronchodilators as needed - DVT prophylaxis - can monitor on floor
--- NOTE | 2017-11-23 17:40 | PN ---
Progress Note (short form) - Note Progress Note: Renal Follow up for Hyponatremia Pt seen and examined in the ICU earlier today has been off 3% saline since yesterday reports feeling better no SCHROEDER, confusion or lethargy no seizures Vital Signs Temperature 98.0 F 11/23/17 14:00 Pulse Rate 66 11/23/17 14:00 Respiratory Rate 13 11/23/17 14:00 Blood Pressure 138/49 11/23/17 14:00 O2 Sat by Pulse Oximetry (%) 97 11/23/17 09:00 Intake & Output 11/20/17 11/21/17 11/22/17 11/23/17 23:59 23:59 23:59 23:59 Intake Total 176 065 7062 620 Output Total 300 401 800 Balance 594 409 497 620 Weight 48.9 g 48.988 kg 50.122 kg NAD MMM, No JVD RRR, NO m/R CTA soft NT/ND NO LE edema CBC, BMP 11/23/17 05:55 11/23/17 10:50 Current Medications Acetaminophen (Tylenol -) 650 mg PO Q6H PRN PRN Reason: HEADACHE Last Admin: 11/21/17 22:49 Dose: 650 mg Acetaminophen/Butalbital/Caffeine (Fioricet -) 1 tablet PO Q6H PRN PRN Reason: HEADACHE Last Admin: 11/22/17 08:42 Dose: 1 tablet Albuterol Sulfate (Ventolin 0.083% Nebulizer Soln -) 1 amp NEB RQID [facility] Last Admin: 11/23/17 16:20 Dose: 1 amp Amlodipine Besylate (Norvasc -) 10 mg PO DAILY [facility] Last Admin: 11/23/17 09:58 Dose: 10 mg Aspirin (Ecotrin -) 81 mg PO DAILY [facility] Last Admin: 11/23/17 09:58 Dose: 81 mg Atorvastatin Calcium (Lipitor -) 10 mg PO HS [facility] Last Admin: 11/22/17 21:49 Dose: 10 mg Budesonide/Formoterol Fumarate (Symbicort 160/4.5mcg -) 1 puff IH DAILY [facility] Last Admin: 11/23/17 10:03 Dose: 1 puff Calcium Carbonate/Cholecalciferol (Os-Maurice 500+D -) 1 tab PO DAILY [facility] Last Admin: 11/23/17 09:59 Dose: 1 tab Heparin Sodium (Porcine) (Heparin -) 5,000 unit SQ BID [facility] Last Admin: 11/23/17 09:58 Dose: 5,000 unit Hydralazine HCl (Apresoline -) 20 mg PO BID [facility] Last Admin: 11/23/17 09:57 Dose: 20 mg Meclizine HCl (Antivert -) 25 mg PO TID [facility] Last Admin: 11/23/17 13:46 Dose: 25 mg Multivitamins/Minerals/Vitamin C (Tab-A-Vit -) 1 tab PO DAILY [facility] Last Admin: 11/23/17 10:00 Dose: 1 tab Sodium Chloride (Sodium Chloride Tablet -) 1 gm PO TID [facility] Last Admin: 11/23/17 13:47 Dose: 1 gm Topiramate (Topamax -) 25 mg PO BID [facility] Last Admin: 11/23/17 10:01 Dose: 25 mg 82 year old woman with 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
[2017-11-23] MEDS ORDERED: ACETAMINOPHEN 325 MG TABLET (FP) PO PRN (18:25)
[2017-11-23] MEDS: hydrALAZINE HCL 10 MG TABLET PO SCH (22:06)
[2017-11-23] MEDS: ATORVASTATIN CA 10 MG TABLET (FP) PO SCH (22:06)
[2017-11-24] MEDS: SODIUM CHLORIDE 1 GM TABLET PO SCH ×3 (06:06→21:54)
[2017-11-24] MEDS: MECLIZINE HCL 25 MG TABLET (FP) PO SCH ×3 (06:06→21:54)
--- NOTE | 2017-11-24 06:15 | PN ---
Progress Note, Physician Chief Complaint: Na 129 feels better no headaches no neck pain, ate and slept OK consults appreciated and d/w pt; will need fluid restriction and NaCL tid home po pt aware - Current Medication List Current Medications: Active Medications Acetaminophen (Tylenol -) 650 mg PO Q6H PRN PRN Reason: HEADACHE Albuterol Sulfate (Ventolin 0.083% Nebulizer Soln -) 1 amp NEB RQID [facility] Last Admin: 11/23/17 21:39 Dose: 1 amp Amlodipine Besylate (Norvasc -) 10 mg PO DAILY [facility] Aspirin (Ecotrin -) 81 mg PO DAILY [facility] Atorvastatin Calcium (Lipitor -) 10 mg PO HS [facility] Last Admin: 11/23/17 22:06 Dose: 10 mg Budesonide/Formoterol Fumarate (Symbicort 160/4.5mcg -) 1 puff IH DAILY [facility] Calcium Carbonate/Cholecalciferol (Os-Maurice 500+D -) 1 tab PO DAILY [facility] Heparin Sodium (Porcine) (Heparin -) 5,000 unit SQ BID [facility] Last Admin: 11/23/17 22:10 Dose: 5,000 unit Hydralazine HCl (Apresoline -) 20 mg PO BID [facility] Last Admin: 11/23/17 22:06 Dose: 20 mg Meclizine HCl (Antivert -) 25 mg PO TID [facility] Last Admin: 11/24/17 06:06 Dose: 25 mg Multivitamins/Minerals/Vitamin C (Tab-A-Vit -) 1 tab PO DAILY [facility] Sodium Chloride (Sodium Chloride Tablet -) 1 gm PO TID [facility] Last Admin: 11/24/17 06:06 Dose: 1 gm Topiramate (Topamax -) 25 mg PO BID [facility] Last Admin: 11/23/17 22:06 Dose: 25 mg - Objective Vital Signs: Vital Signs Temperature 99.4 F 11/24/17 02:00 Pulse Rate 68 11/24/17 02:00 Respiratory Rate 18 11/24/17 02:00 Blood Pressure 147/60 11/24/17 02:00 O2 Sat by Pulse Oximetry (%) 97 11/23/17 21:00 Constitutional: Yes: No Distress, Calm Eyes: Yes: Conjunctiva Clear HENT: Yes: Atraumatic Neck: Yes: Supple Cardiovascular: Yes: Regular Rate and Rhythm Respiratory: Yes: CTA Bilaterally Gastrointestinal: Yes: Soft. No: Distention Genitourinary: No: CVA Tenderness - Left, CVA Tenderness - Right Musculoskeletal: No: Joint Stiffness, Joint Swelling Extremities: No: Cold, Cool, Cyanosis Edema: No Integumentary: No: Rash, Venous Stasis Changes Neurological: Yes: WNL, Alert, Oriented ...Motor Strength: WNL Psychiatric: Yes: WNL, Alert, Oriented. No: Agitated, Suicidal Ideation Labs: CBC, BMP 11/23/17 05:55 11/23/17 18:30 - ....Imaging Other: Report Reviewed Assessment/Plan A/P 82 year old female with a past medical history of HTN and COPD admitted with persistent dizziness, unsteady gait, headache, neck pain, back pain, and increased thirst. Head CT negative but Na dropping further despite treatment most likely reset ds/ SIADH; also HTN po Na per renal; restrict free water po close Na f/u; if > 130 in am can DC home on po NaCL and close f/u outpt. BP control, Na control; pain meds prn; DVT pfx; also d/w pt and staff falls PFX do not get OOB alone risks falls; bed alarm d.w ICU staff d/w pt and they agreed with plan
[2017-11-24 07:28] LABS: HEMATOCRIT 31.3 % (32.4-45.2); HEMOGLOBIN 10.7 GM/dL (10.7-15.3); LYMPH % 18.6 % (8-40); MCH 31.3 pg (25.7-33.7); MCHC 34.2 g/dl (32.0-36.0); MEAN CELL VOLUME 91.6 fl (80-96); MEAN PLT VOLUME 8.6 fl (7.5-11.1); MONO % 17.8 % (3.8-10.2); NEUT % 58.6 % (42.8-82.8); PLATELET COUNT 241 K/MM3 (134-434); RBC 3.42 M/mm3 (3.60-5.2); RDW 15.2 % (11.6-15.6); WHITE BLOOD COUNT 3.6 K/mm3 (4.0-10.0)
[2017-11-24] MEDS: ALBUTEROL SO4 0.083% IH SOL 2.5 MG/3 ML VIAL.NEB. NEB SCH ×4 (07:45→19:38)
[2017-11-24 07:55] LABS: CHLORIDE 94 mmol/L (98-107); POTASSIUM 3.9 mmol/L (3.5-5.1); SODIUM 129 mmol/L (136-145)
[2017-11-24 08:07] LABS: ALK PHOS 79 U/L (45-117); ANION GAP 7 (8-16); BILIRUBIN,TOTAL 0.3 mg/dL (0.2-1.0); BLOOD UREA NITROGEN 11 mg/dL (7-18); CO2 28 mmol/L (21-32); CREATININE 0.5 mg/dL (0.55-1.02); GLUCOSE,RANDOM 105 mg/dL (74-106); SGOT/AST 22 U/L (15-37); SGPT/ALT 22 U/L (12-78); TOT PROT 5.7 g/dl (6.4-8.2)
--- NOTE | 2017-11-24 10:00 | PN ---
Progress Note (short form) - Note Progress Note: Neurology History of Present Illness The patient is a 82 year old female with a past medical history of HTN and COPD who presented to the emergency department with dizziness for 4 days. She reported that she was seen at this emergency department on Tuesday for similar symptoms and seen by me then. She reported that her dizziness recurred at home though she was doing well during my evaluation then. Her dizziness is exacerbated when standing and walking. She completed MRI brain overnight and did not show acute changes, reports noted same as one in 2015.Getting ongoing treatment for hyponatremia and overnight required transfer to ICU where she is getting critical care management for hyponatremia whihc had decreased to 110, now improved to 129. Is awake, alert, interactive and oriented. Headaches improved with Topamax vs improved Na, unsure which played a greater role. Getting fioricet PRN. Neck pain has improved as well. Discussed discontinuing topamax now as perhaps Na sodium improved headache and would like to minimize medication as much as possible. Patient in agreement. If headache returns, TPM can be restarted. Active Medications Acetaminophen (Tylenol -) 650 mg PO Q6H PRN PRN Reason: HEADACHE Albuterol Sulfate (Ventolin 0.083% Nebulizer Soln -) 1 amp NEB RQID [facility] Last Admin: 11/23/17 21:39 Dose: 1 amp Amlodipine Besylate (Norvasc -) 10 mg PO DAILY [facility] Aspirin (Ecotrin -) 81 mg PO DAILY [facility] Atorvastatin Calcium (Lipitor -) 10 mg PO HS [facility] Last Admin: 11/23/17 22:06 Dose: 10 mg Budesonide/Formoterol Fumarate (Symbicort 160/4.5mcg -) 1 puff IH DAILY [facility] Calcium Carbonate/Cholecalciferol (Os-Maurice 500+D -) 1 tab PO DAILY [facility] Heparin Sodium (Porcine) (Heparin -) 5,000 unit SQ BID [facility] Last Admin: 11/23/17 22:10 Dose: 5,000 unit Hydralazine HCl (Apresoline -) 20 mg PO BID [facility] Last Admin: 11/23/17 22:06 Dose: 20 mg Meclizine HCl (Antivert -) 25 mg PO TID [facility] Last Admin: 11/24/17 06:06 Dose: 25 mg Multivitamins/Minerals/Vitamin C (Tab-A-Vit -) 1 tab PO DAILY [facility] Sodium Chloride (Sodium Chloride Tablet -) 1 gm PO TID [facility] Last Admin: 11/24/17 06:06 Dose: 1 gm Topiramate (Topamax -) 25 mg PO BID [facility] Last Admin: 11/23/17 22:06 Dose: 25 mg *Physical Exam Vital Signs Temperature 98.9 F 11/24/17 06:00 Pulse Rate 67 11/24/17 06:00 Respiratory Rate 18 11/24/17 06:00 Blood Pressure 151/79 11/24/17 06:00 O2 Sat by Pulse Oximetry (%) 97 11/23/17 21:00 GENERAL: The patient is in no acute distress. HEAD: Normal with no signs of trauma. EYES: PERRLA, EOMI, sclera anicteric, conjunctiva clear. ENT: Ears normal, nares patent, oropharynx clear without exudates. Moist mucous membranes. NECK: Normal range of motion, supple without lymphadenopathy, JVD, or masses. LUNGS: Breath sounds equal, clear to auscultation bilaterally. (+) Bilateral wheezes, no crackles. HEART:Regular rate and rhythm, normal S1 and S2 without murmur, rub or gallop. ABDOMEN: Soft, nontender, normoactive bowel sounds. No guarding, no rebound. EXTREMITIES: Normal range of motion, no edema. No clubbing or cyanosis. No erythema, or tenderness. NEUROLOGICAL: CN intact, strength symetric, sensory intact, gait deferred MUSCULOSKELETAL: Back nontender to palpation, no CVA tenderness SKIN: Warm, Dry, normal turgor, no rashes or lesions noted. CBCD WBC 3.6 K/mm3 (4.0-10.0) L 11/24/17 06:30 RBC 3.42 M/mm3 (3.60-5.2) L 11/24/17 06:30 Hgb 10.7 GM/dL (10.7-15.3) D 11/24/17 06:30 Hct 31.3 % (32.4-45.2) L 11/24/17 06:30 MCV 91.6 fl (80-96) 11/24/17 06:30 MCHC 34.2 g/dl (32.0-36.0) 11/24/17 06:30 RDW 15.2 % (11.6-15.6) 11/24/17 06:30 Plt Count 241 K/MM3 (134-434) 11/24/17 06:30 MPV 8.6 fl (7.5-11.1) 11/24/17 06:30 CMP Sodium 129 mmol/L (136-145) L 11/24/17 06:30 Potassium 3.9 mmol/L (3.5-5.1) 11/24/17 06:30 Chloride 94 mmol/L (98-107) L 11/24/17 06:30 Carbon Dioxide 28 mmol/L (21-32) 11/24/17 06:30 Anion Gap 7 (8-16) L 11/24/17 06:30 BUN 11 mg/dL (7-18) 11/24/17 06:30 Creatinine 0.5 mg/dL (0.55-1.02) L 11/24/17 06:30 Creat Clearance w eGFR > 60 (>60) 11/24/17 06:30 Calcium 8.0 mg/dL (8.5-10.1) L 11/24/17 06:30 Total Bilirubin 0.3 mg/dL (0.2-1.0) D 11/24/17 06:30 AST 22 U/L (15-37) 11/24/17 06:30 ALT 22 U/L (12-78) 11/24/17 06:30 Alkaline Phosphatase 79 U/L (45-117) 11/24/17 06:30 Total Protein 5.7 g/dl (6.4-8.2) L 11/24/17 06:30 Albumin 3.0 g/dl (3.4-5.0) L 11/24/17 06:30 CT head reviewed, no acute changes MRI brain reviewed and no acute changes Plan: 82 year old female with a past medical history of HTN and COPD who presented to the emergency department with dizziness for 4 days. She reported that she was seen at this emergency department on Tuesday for similar symptoms and seen by me then. She reported that her dizziness recurred at home though she was doing well during my evaluation then. Her dizziness is exacerbated when standing and walking. She reports associated unsteady gait, headache, neck pain, back pain, and increased thirst. She had CT head at that time and acute changes noted. MRI brain completed and reviewed with patient, no acute changes, no cerebellar infarct. Patient in critical care monitoring in ICU for hyponatremia down to sodium of 110, improved to 125 today. No sudden head movements. Hydration recommended. Can continue meclezine. Added Topamax for headache 25mg twice daily , has helped in conjunction with Na correction. Can continue fioricet PRN. Discussed discontinuing topamax now as perhaps Na sodium improved headache and would like to minimize medication as much as possible. Patient in agreement. If headache returns, TPM can be restarted. Will discontinue for now. Continue management of hyponatremia, renal following.
[2017-11-24] MEDS: amLODIPine BESYLATE 10 MG TABLET (FP) PO SCH (10:08)
[2017-11-24] MEDS: HEPARIN NA (PORCINE) 5,000 UNITS/ML 1ML VIAL SQ SCH ×2 (10:08→21:53)
[2017-11-24] MEDS: CALCIUM 500MG/VIT-D 200 UNITS COMBO TABLET (FP) PO SCH (10:09)
[2017-11-24] MEDS: ASPIRIN COATED 81 MG TABLET.EC PO SCH (10:09)
[2017-11-24] MEDS: MULTIVITAMINS (DAILY MVI) TABLET (FP) PO SCH (10:09)
[2017-11-24] MEDS ORDERED: PT OWN MED DRAWER 7, Y5N ONE ×2 (10:11→21:29)
[2017-11-24] MEDS: BUDESONIDE/FORMETEROL FUMARATE 160/4.5 mcg INHALER IH SCH (10:13)
[2017-11-24] MEDS: hydrALAZINE HCL 10 MG TABLET PO SCH ×2 (10:14→21:53)
--- NOTE | 2017-11-24 11:14 | PN ---
Progress Note (short form) - Note Progress Note: Feels overall better. No CP or SOB. No SCHROEDER or dizziness. No acute events overnight. CT Chest: Centrilobular emphysema / no discrete masses or nodules Intake & Output 11/21/17 11/22/17 11/23/17 11/24/17 23:59 23:59 23:59 23:59 Intake Total 810 1297 970 Output Total 401 800 300 Balance 409 497 670 Weight 1.725 oz 108 lb 110 lb 8 oz 110 lb Last Vital Signs Temp Pulse Resp BP Pulse Ox 98.9 F 67 18 151/79 97 11/24/17 06:00 11/24/17 06:00 11/24/17 06:00 11/24/17 06:00 11/23/17 21:00 Active Medications Acetaminophen (Tylenol -) 650 mg PO Q6H PRN PRN Reason: HEADACHE Albuterol Sulfate (Ventolin 0.083% Nebulizer Soln -) 1 amp NEB RQID [facility] Last Admin: 11/24/17 07:45 Dose: 1 amp Amlodipine Besylate (Norvasc -) 10 mg PO DAILY [facility] Last Admin: 11/24/17 10:08 Dose: 10 mg Aspirin (Ecotrin -) 81 mg PO DAILY [facility] Last Admin: 11/24/17 10:09 Dose: 81 mg Atorvastatin Calcium (Lipitor -) 10 mg PO HS [facility] Last Admin: 11/23/17 22:06 Dose: 10 mg Budesonide/Formoterol Fumarate (Symbicort 160/4.5mcg -) 1 puff IH DAILY [facility] Last Admin: 11/24/17 10:13 Dose: 1 inh Calcium Carbonate/Cholecalciferol (Os-Maurice 500+D -) 1 tab PO DAILY [facility] Last Admin: 11/24/17 10:09 Dose: 1 tab Heparin Sodium (Porcine) (Heparin -) 5,000 unit SQ BID [facility] Last Admin: 11/24/17 10:08 Dose: 5,000 unit Hydralazine HCl (Apresoline -) 20 mg PO BID [facility] Last Admin: 11/24/17 10:14 Dose: 20 mg Meclizine HCl (Antivert -) 25 mg PO TID [facility] Last Admin: 11/24/17 06:06 Dose: 25 mg Multivitamins/Minerals/Vitamin C (Tab-A-Vit -) 1 tab PO DAILY [facility] Last Admin: 11/24/17 10:09 Dose: 1 tab Sodium Chloride (Sodium Chloride Tablet -) 1 gm PO TID [facility] Last Admin: 11/24/17 06:06 Dose: 1 gm Gen: NAD at rest Heart: RRR Lung: decreased breath sounds at the bases Abd: soft, nontender Ext: no edema Laboratory Results - last 24 hr 11/23/17 11/23/17 11/24/17 10:50 18:30 06:30 WBC 3.6 L RBC 3.42 L Hgb 10.7 D Hct 31.3 L MCV 91.6 MCH 31.3 MCHC 34.2 RDW 15.2 Plt Count 241 MPV 8.6 Neutrophils % 58.6 Lymphocytes % 18.6 D Monocytes % 17.8 H Eosinophils % 4.0 Basophils % 1.0 Sodium 126 L 128 L Potassium 3.8 Chloride 90 L Carbon Dioxide 29 Anion Gap 7 L BUN 7 Creatinine 0.4 L Creat Clearance w eGFR Random Glucose 110 H Calcium 7.8 L Total Bilirubin AST ALT Alkaline Phosphatase Total Protein Albumin 11/24/17 06:30 WBC RBC Hgb Hct MCV MCH MCHC RDW Plt Count MPV Neutrophils % Lymphocytes % Monocytes % Eosinophils % Basophils % Sodium 129 L Potassium 3.9 Chloride 94 L Carbon Dioxide 28 Anion Gap 7 L BUN 11 Creatinine 0.5 L Creat Clearance w eGFR > 60 Random Glucose 105 Calcium 8.0 L Total Bilirubin 0.3 D AST 22 ALT 22 Alkaline Phosphatase 79 Total Protein 5.7 L Albumin 3.0 L ASSESSMENT AND PLAN: Severe Euvolemic Hyponatremia improving h/o SIADH HTN COPD - monitor lytes - fluid restriction - salt tabs - inhaled bronchodilators as needed - DVT prophylaxis - BD [place] PRN Dr Leslie
--- NOTE | 2017-11-24 13:11 | PN ---
Progress Note (short form) - Note Progress Note: Renal Follow up for Hyponatremia Pt seen and examined at the bedside awake and alert feel back to normal no sob, chest pain, SCHROEDER, confusion, lethargy ok with fluid restriction Vital Signs Temperature 98.9 F 11/24/17 06:00 Pulse Rate 67 11/24/17 06:00 Respiratory Rate 18 11/24/17 06:00 Blood Pressure 151/79 11/24/17 06:00 O2 Sat by Pulse Oximetry (%) 97 11/23/17 21:00 Intake & Output 11/21/17 11/22/17 11/23/17 11/24/17 23:59 23:59 23:59 23:59 Intake Total 810 1297 970 Output Total 401 800 300 Balance 409 497 670 Weight 48.9 g 48.988 kg 50.122 kg 49.895 kg NAD MMM, No JVD RRR, NO m/R CTA soft NT/ND NO LE edema CBC, BMP 11/24/17 06:30 11/24/17 06:30 Current Medications Acetaminophen (Tylenol -) 650 mg PO Q6H PRN PRN Reason: HEADACHE Albuterol Sulfate (Ventolin 0.083% Nebulizer Soln -) 1 amp NEB RQID [facility] Last Admin: 11/24/17 07:45 Dose: 1 amp Amlodipine Besylate (Norvasc -) 10 mg PO DAILY [facility] Last Admin: 11/24/17 10:08 Dose: 10 mg Aspirin (Ecotrin -) 81 mg PO DAILY [facility] Last Admin: 11/24/17 10:09 Dose: 81 mg Atorvastatin Calcium (Lipitor -) 10 mg PO HS [facility] Last Admin: 11/23/17 22:06 Dose: 10 mg Budesonide/Formoterol Fumarate (Symbicort 160/4.5mcg -) 1 puff IH DAILY [facility] Last Admin: 11/24/17 10:13 Dose: 1 inh Calcium Carbonate/Cholecalciferol (Os-Maurice 500+D -) 1 tab PO DAILY [facility] Last Admin: 11/24/17 10:09 Dose: 1 tab Heparin Sodium (Porcine) (Heparin -) 5,000 unit SQ BID [facility] Last Admin: 11/24/17 10:08 Dose: 5,000 unit Hydralazine HCl (Apresoline -) 20 mg PO BID [facility] Last Admin: 11/24/17 10:14 Dose: 20 mg Meclizine HCl (Antivert -) 25 mg PO TID [facility] Last Admin: 11/24/17 06:06 Dose: 25 mg Multivitamins/Minerals/Vitamin C (Tab-A-Vit -) 1 tab PO DAILY [facility] Last Admin: 11/24/17 10:09 Dose: 1 tab Sodium Chloride (Sodium Chloride Tablet -) 1 gm PO TID [facility] Last Admin: 11/24/17 06:06 Dose: 1 gm 82 year old woman with 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
[2017-11-24] MEDS: TOPIRAMATE 25 MG TABLET (FP) PO SCH (14:21)
--- NOTE | 2017-11-24 15:17 | PN ---
Progress Note (short form) - Note Progress Note: Chief Complaint: SCHROEDER/hyponatremia S: feeling well. no cp, palps, dizziness, sob. hydralazine increased to 20 mg bid last night. Current Medications Acetaminophen (Tylenol -) 650 mg PO Q6H PRN PRN Reason: HEADACHE Albuterol Sulfate (Ventolin 0.083% Nebulizer Soln -) 1 amp NEB RQID [facility] Last Admin: 11/24/17 11:35 Dose: 1 amp Amlodipine Besylate (Norvasc -) 10 mg PO DAILY [facility] Last Admin: 11/24/17 10:08 Dose: 10 mg Aspirin (Ecotrin -) 81 mg PO DAILY [facility] Last Admin: 11/24/17 10:09 Dose: 81 mg Atorvastatin Calcium (Lipitor -) 10 mg PO HS [facility] Last Admin: 11/23/17 22:06 Dose: 10 mg Budesonide/Formoterol Fumarate (Symbicort 160/4.5mcg -) 1 puff IH DAILY [facility] Last Admin: 11/24/17 10:13 Dose: 1 inh Calcium Carbonate/Cholecalciferol (Os-Maurice 500+D -) 1 tab PO DAILY [facility] Last Admin: 11/24/17 10:09 Dose: 1 tab Heparin Sodium (Porcine) (Heparin -) 5,000 unit SQ BID [facility] Last Admin: 11/24/17 10:08 Dose: 5,000 unit Hydralazine HCl (Apresoline -) 20 mg PO BID [facility] Last Admin: 11/24/17 10:14 Dose: 20 mg Meclizine HCl (Antivert -) 25 mg PO TID [facility] Last Admin: 11/24/17 14:13 Dose: 25 mg Multivitamins/Minerals/Vitamin C (Tab-A-Vit -) 1 tab PO DAILY [facility] Last Admin: 11/24/17 10:09 Dose: 1 tab Sodium Chloride (Sodium Chloride Tablet -) 1 gm PO TID [facility] Last Admin: 11/24/17 14:13 Dose: 1 gm - Objective Vital Signs: Vital Signs - 24 hr 11/23/17 11/23/17 11/23/17 18:00 21:00 22:00 Temperature 99.0 F 98.5 F Pulse Rate 70 70 Respiratory 19 14 14 Rate Blood Pressure 142/70 137/55 O2 Sat by Pulse 97 Oximetry (%) 11/24/17 11/24/1718 02:00 06:00 09:00 Temperature 99.4 F 98.9 F Pulse Rate 68 67 Respiratory 18 18 16 Rate Blood Pressure 147/60 151/79 O2 Sat by Pulse 95 Oximetry (%) 11/24/17 11/24/17 10:00 14:00 Temperature 98.5 F 98.3 F Pulse Rate 65 74 Respiratory 16 17 Rate Blood Pressure 130/53 113/52 O2 Sat by Pulse Oximetry (%) Intake & Output 11/22/17 11/23/17 11/24/17 11/25/17 07:59 07:59 07:59 07:59 Intake Total 1180 1147 750 550 Output Total 801 400 300 Balance 379 747 450 550 Weight 108 lb 12.8 oz 110 lb 8 oz 110 lb Constitutional: Yes: Well Nourished, No Distress, Calm Cardiovascular: Yes: Regular Rate and Rhythm, S1, S2. No: Gallop, Murmur jvd flat, neck supple Respiratory: Yes: diminished air mov't, trace wheezes. nl effort. No: Accessory Muscle Use, Rales + bs soft nt nd. Edema: No Neurological: Yes: Alert, Oriented Psychiatric: No: Agitated no jaundice, diaphoresis + dp/pt Labs: CBC, BMP 11/24/17 06:30 11/24/17 06:30 Laboratory Tests 11/21/17 11/23/17 06:36 05:55 Sodium Magnesium 1.9 Total Bilirubin AST ALT Alkaline Phosphatase Albumin TSH 2.60 11/23/17 11/23/17 11/24/17 10:50 18:30 06:30 Sodium 126 L 128 L Magnesium Total Bilirubin AST ALT Alkaline Phosphatase Albumin 3.0 L TSH prior tele: sr ECG x3: NSR, LBBB--no change vs prior CXR: clear lungs/pleura chest ct: images and report reviewed. findings included small pericardial effusion. CT head 11/18 (during ER visit): no acute pathology MRI brain: no acute pathology or change vs prior A/P 82 yo with pmhx of htn, hl, hyponatremia on salt tabs, copd, vertigo who p/w recurrent hyponatremia. hyponatremia: -sec to SIADH in the past, suspicion for siadh as etiology here. - w/p ivfs per renal, na improving SCHROEDER, dizzy, neck pain: -CT head unremarkable -unrelated to her BPs, as she tolerates moderately elevated BPs for many yrs and is near her baseline BP range -neuro following HTN: -systolic BP ranging 130s-180s here. per dr. morel, this is very c/w her prior baseline, for which she declined further med trials or office f/u. has tolerated amlodipine long time. per dr. morel may have been intolerant of ARB previously. would avoid thiazides and spironolactone given potential to exacerbate hyponatremia. HR 50s-60s, on the low side for trial of b-rebeka or clonidine (though possible she would tolerate these) --> started on trial of hydral 10mg BID here. consider incr hydral 20 bid later if tolerating, if bp remains >160 consistently (note: NOT assctd with hyponatremia or SIADH) - 11/22: suboptimal bp control, but now trending down throughout the day. con't to monitor. If suboptimal control again tomorrow, consider increasing hydral to 20 mg bid.-->increase to 20 bid 11/23. 11/24: bp now overall reasonable control for age. small pericardial effusion - noted on chest ct. chest ct not optimal modality for accurately measuring the amount of pericardial fluid. No concerning adjunctive ct scan findings that would point towards hemodynamic compromise. Could consider echo to confirm presence of pericardial effusion, but patient declines - she would like to avoid further testing. 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 Stable from CV perspective with routine outpatient cardiology follow up.
[2017-11-24] MEDS: ATORVASTATIN CA 10 MG TABLET (FP) PO SCH (21:53)
[2017-11-25] MEDS ORDERED: PT OWN MED DRAWER 7, Y5N ONE ×2 (05:46→10:10)
[2017-11-25] MEDS: MECLIZINE HCL 25 MG TABLET (FP) PO SCH (06:15)
[2017-11-25] MEDS: SODIUM CHLORIDE 1 GM TABLET PO SCH (06:15)
--- NOTE | 2017-11-25 06:17 | DS ---
Physical Examination Vital Signs: Vital Signs Temperature 98.2 F 11/25/17 05:00 Pulse Rate 66 11/25/17 05:00 Respiratory Rate 18 11/24/17 21:36 Blood Pressure 153/67 11/25/17 05:00 O2 Sat by Pulse Oximetry (%) 93 L 11/24/17 20:35 Findings/Remarks: feels well wants to go home Na 134 meds and DC instructions d/w pt scripts done Constitutional: Yes: No Distress, Calm Eyes: Yes: Conjunctiva Clear HENT: Yes: Atraumatic Neck: Yes: Supple Cardiovascular: Yes: Regular Rate and Rhythm Respiratory: Yes: CTA Bilaterally Gastrointestinal: Yes: Soft. No: Distention Renal/: No: CVA Tenderness - Left, CVA Tenderness - Right Musculoskeletal: No: Joint Stiffness, Joint Swelling Extremities: No: Cold, Cool, Cyanosis Edema: No Integumentary: No: Rash, Venous Stasis Changes Neurological: Yes: WNL, Alert, Oriented ...Motor Strength: WNL Psychiatric: Yes: WNL, Alert, Oriented. No: Agitated, Suicidal Ideation Labs: CBC, BMP 11/24/17 06:30 11/24/17 06:30 Discharge Summary Reason For Visit: LIGHTHEADEDNESS; HYPONATREMIA Current Active Problems COPD (chronic obstructive pulmonary disease) (Acute) Dizziness (Acute) Hyponatremia (Acute) SIADH (syndrome of inappropriate ADH production) (Acute) Procedures: Principal: admitted with sever hypoNatremia, symptomatic, also increased BP Other Procedures: IVF hypertonic per renal, po Nacl; renal and cardiology eval; . neurology eval for headaches and neck pain; brain MRI and chest CT negative. monitored in ICU; Hospital Course: improved with above; DC home on po NaCL and fluid restriction; take meds and f/u as advised d/w pt Condition: Good - Instructions Diet, Activity, Other Instructions: f/u PCP and labs within 1 week also f/u with renal, cardiology and neurology as advised health maintenance [employer] as advised RTER if worse or recurrent c/o take meds as prescribed Referrals: Saranya Jones [Primary Care Provider] - Toby Leslie MD [Staff Physician] - Omar Isaacs MD [Staff Physician] - Tristan Amaya MD [Staff Physician] - Yehuda Leiva MD [Staff Physician] - Humberto Rick MD [Staff Physician] - Disposition: HOME - Home Medications Comprehensive Discharge Medication List: Ambulatory Orders Amlodipine Besylate [Norvasc -] 10 mg PO DAILY 07/01/15 Simvastatin [Zocor -] 20 mg PO HS 01/22/16 Sodium Chloride Tablet - 1 gm PO BID 01/22/16 Albuterol Sulfate [Proair Hfa] 8.5 gm IH PRN PRN 08/03/17 Aspirin [Aspirin EC] 81 mg PO DAILY 08/03/17 Budesonide/Formeterol Fumarate [SYMBICORT 160/4.5mcg -] 1 inh PO DAILY 08/03/17 Calcium Carbonate/Vitamin D3 [Calcium 600 + Vit D 400 Softgl] 1 each PO DAILY Multivit-Min/Iron/Folic/Lutein [Centrum Silver Women Tablet] 1 each PO DAILY Vit E/Vit E Mx/Squal/Phytostrl [Mixed Tocotrienols 50 mg Sftgl] 1 each PO DAILY 08/03/17 Meclizine HCl 25 mg PO ONCE #7 tab.chew 11/18/17
[2017-11-25] MEDS: ALBUTEROL SO4 0.083% IH SOL 2.5 MG/3 ML VIAL.NEB. NEB SCH ×2 (07:20→11:34)
[2017-11-25 08:10] LABS: ANION GAP 6 (8-16); BLOOD UREA NITROGEN 9 mg/dL (7-18); CALCIUM 8.1 mg/dL (8.5-10.1); CHLORIDE 99 mmol/L (98-107); CO2 29 mmol/L (21-32); CREATININE 0.5 mg/dL (0.55-1.02); GLUCOSE,RANDOM 97 mg/dL (74-106); SODIUM 134 mmol/L (136-145)
[2017-11-25 09:00] VITALS: BP 139/52; PULSE 74; TEMP 98.3
--- NOTE | 2017-11-25 09:46 | PN ---
Progress Note (short form) - Note Progress Note: Neurology History of Present Illness The patient is a 82 year old female with a past medical history of HTN and COPD who presented to the emergency department with dizziness for 4 days. She reported that she was seen at this emergency department on Tuesday for similar symptoms and seen by me then. She reported that her dizziness recurred at home though she was doing well during my evaluation then. Her dizziness is exacerbated when standing and walking. She completed MRI brain overnight and did not show acute changes, reports noted same as one in 2015.Getting ongoing treatment for hyponatremia and overnight required transfer to ICU where she is getting critical care management for hyponatremia whihc had decreased to 110, now improved to 134. Is awake, alert, interactive and oriented. Headaches improved with Topamax vs improved Na, unsure which played a greater role. Getting fioricet PRN. Neck pain has improved as well. Discontinued topamax and no headache symptoms. She is doing well today and would like to be discharged. Active Medications Acetaminophen (Tylenol -) 650 mg PO Q6H PRN PRN Reason: HEADACHE Last Admin: 11/24/17 16:09 Dose: 650 mg Albuterol Sulfate (Ventolin 0.083% Nebulizer Soln -) 1 amp NEB RQID [facility] Last Admin: 11/25/17 07:20 Dose: 1 amp Amlodipine Besylate (Norvasc -) 10 mg PO DAILY [facility] Last Admin: 11/24/17 10:08 Dose: 10 mg Aspirin (Ecotrin -) 81 mg PO DAILY [facility] Last Admin: 11/24/17 10:09 Dose: 81 mg Atorvastatin Calcium (Lipitor -) 10 mg PO HS [facility] Last Admin: 11/24/17 21:53 Dose: 10 mg Budesonide/Formoterol Fumarate (Symbicort 160/4.5mcg -) 1 puff IH DAILY [facility] Last Admin: 11/24/17 10:13 Dose: 1 inh Calcium Carbonate/Cholecalciferol (Os-Maurice 500+D -) 1 tab PO DAILY [facility] Last Admin: 11/24/17 10:09 Dose: 1 tab Heparin Sodium (Porcine) (Heparin -) 5,000 unit SQ BID [facility] Last Admin: 11/24/17 21:53 Dose: 5,000 unit Hydralazine HCl (Apresoline -) 25 mg PO BID [facility] Meclizine HCl (Antivert -) 25 mg PO TID [facility] Last Admin: 11/25/17 06:15 Dose: 25 mg Multivitamins/Minerals/Vitamin C (Tab-A-Vit -) 1 tab PO DAILY [facility] Last Admin: 11/24/17 10:09 Dose: 1 tab Sodium Chloride (Sodium Chloride Tablet -) 1 gm PO TID [facility] Last Admin: 11/25/17 06:15 Dose: 1 gm *Physical Exam Vital Signs Temperature 98.3 F 11/25/17 08:58 Pulse Rate 74 11/25/17 08:58 Respiratory Rate 18 11/24/17 21:36 Blood Pressure 139/52 11/25/17 08:58 O2 Sat by Pulse Oximetry (%) 93 L 11/24/17 20:35 GENERAL: The patient is in no acute distress. HEAD: Normal with no signs of trauma. EYES: PERRLA, EOMI, sclera anicteric, conjunctiva clear. ENT: Ears normal, nares patent, oropharynx clear without exudates. Moist mucous membranes. NECK: Normal range of motion, supple without lymphadenopathy, JVD, or masses. LUNGS: Breath sounds equal, clear to auscultation bilaterally. (+) Bilateral wheezes, no crackles. HEART:Regular rate and rhythm, normal S1 and S2 without murmur, rub or gallop. ABDOMEN: Soft, nontender, normoactive bowel sounds. No guarding, no rebound. EXTREMITIES: Normal range of motion, no edema. No clubbing or cyanosis. No erythema, or tenderness. NEUROLOGICAL: CN intact, strength symetric, sensory intact, gait deferred MUSCULOSKELETAL: Back nontender to palpation, no CVA tenderness SKIN: Warm, Dry, normal turgor, no rashes or lesions noted. CBCD WBC 3.6 K/mm3 (4.0-10.0) L 11/24/17 06:30 RBC 3.42 M/mm3 (3.60-5.2) L 11/24/17 06:30 Hgb 10.7 GM/dL (10.7-15.3) D 11/24/17 06:30 Hct 31.3 % (32.4-45.2) L 11/24/17 06:30 MCV 91.6 fl (80-96) 11/24/17 06:30 MCHC 34.2 g/dl (32.0-36.0) 11/24/17 06:30 RDW 15.2 % (11.6-15.6) 11/24/17 06:30 Plt Count 241 K/MM3 (134-434) 11/24/17 06:30 MPV 8.6 fl (7.5-11.1) 11/24/17 06:30 CMP Sodium 129 mmol/L (136-145) L 11/24/17 06:30 Potassium 3.9 mmol/L (3.5-5.1) 11/24/17 06:30 Chloride 94 mmol/L (98-107) L 11/24/17 06:30 Carbon Dioxide 28 mmol/L (21-32) 11/24/17 06:30 Anion Gap 7 (8-16) L 11/24/17 06:30 BUN 11 mg/dL (7-18) 11/24/17 06:30 Creatinine 0.5 mg/dL (0.55-1.02) L 11/24/17 06:30 Creat Clearance w eGFR > 60 (>60) 11/24/17 06:30 Calcium 8.0 mg/dL (8.5-10.1) L 11/24/17 06:30 Total Bilirubin 0.3 mg/dL (0.2-1.0) D 11/24/17 06:30 AST 22 U/L (15-37) 11/24/17 06:30 ALT 22 U/L (12-78) 11/24/17 06:30 Alkaline Phosphatase 79 U/L (45-117) 11/24/17 06:30 Total Protein 5.7 g/dl (6.4-8.2) L 11/24/17 06:30 Albumin 3.0 g/dl (3.4-5.0) L 11/24/17 06:30 CT head reviewed, no acute changes MRI brain reviewed and no acute changes Plan: 82 year old female with a past medical history of HTN and COPD who presented to the emergency department with dizziness for 4 days. She reported that she was seen at this emergency department on Tuesday for similar symptoms and seen by me then. She reported that her dizziness recurred at home though she was doing well during my evaluation then. Her dizziness is exacerbated when standing and walking. She reports associated unsteady gait, headache, neck pain, back pain, and increased thirst. She had CT head at that time and acute changes noted. MRI brain completed and reviewed with patient, no acute changes, no cerebellar infarct. Patient in critical care monitoring in ICU for hyponatremia down to sodium of 110, improved to 134 today. No sudden head movements. Hydration recommended. Can continue meclezine. Added Topamax for headache 25mg twice daily , has helped in conjunction with Na correction. Can continue fioricet PRN. Discontinued topamax and no headache symptoms. She is doing well today and would like to be discharged. Neurologically stable at this time.
[2017-11-25] MEDS ORDERED: hydrALAZINE HCL 25 MG TABLET (FP) PO SCH (10:00)
--- NOTE | 2017-11-25 10:09 | PN ---
Progress Note (short form) - Note Progress Note: PULMONARY "I'M GOING HOME TODAY" VSS/AFEBRILE NO SOB/COUGH OR CP ANICTERIC CHEST DISTANT BUT CLEAR S1S2 BS+ NO EDEMA CHART/LABS/MEDS/NOTES/IMAGES REVIEWED ASSESSMENT AND PLAN: Severe Euvolemic Hyponatremia improved h/o SIADH HTN COPD - inhaled bronchodilators as needed - DVT prophylaxis - BD TX MO - NACL MEGAN CORONA MD
[2017-11-25] MEDS: CALCIUM 500MG/VIT-D 200 UNITS COMBO TABLET (FP) PO SCH (10:21)
[2017-11-25] MEDS: ASPIRIN COATED 81 MG TABLET.EC PO SCH (10:21)
[2017-11-25] MEDS: amLODIPine BESYLATE 10 MG TABLET (FP) PO SCH (10:21)
[2017-11-25] MEDS: MULTIVITAMINS (DAILY MVI) TABLET (FP) PO SCH (10:21)
[2017-11-25] MEDS: HEPARIN NA (PORCINE) 5,000 UNITS/ML 1ML VIAL SQ SCH (10:22)
[2017-11-25] MEDS: BUDESONIDE/FORMETEROL FUMARATE 160/4.5 mcg INHALER IH SCH (10:30)
[2017-12-01 00:11] LABS: ANTIDIURETIC HORMONE 3.8 pg/mL (0.0-4.7)
== END 2017-11-25 14:07 | disposition home or self-care (01) | DRG 644 ==
LOC: JER 19:10 → JERBED 21:57 → J4S 23:43 → JICU 11-21 13:58 → J6S 11-23 17:10
PROVIDERS: ADMIT Internal Medicine; ATTEND Internal Medicine
DX: E22.2 Syndrome of inappropriate secretion of antidiuretic hormone (principal); I31.3 Pericardial effusion (noninflammatory); R42 Dizziness and giddiness; I10 Essential (primary) hypertension; J44.9 Chronic obstructive pulmonary disease, unspecified; Z87.891 Personal history of nicotine dependence; K44.9 Diaphragmatic hernia without obstruction or gangrene; E78.5 Hyperlipidemia, unspecified; I44.7 Left bundle-branch block, unspecified; R51 Headache; R26.81 Unsteadiness on feet; M54.2 Cervicalgia; M54.9 Dorsalgia, unspecified
CPT/HCPCS: 36415; 70450-TC; 70551-TC; 71045-TC-FY; 71250-TC; 80048; 80053; 81003; 82533; 82550; 83735; 83930; 83935; 84100; 84295; 84300; 84443; 84484; 84550; 84588; 85025; 85027; 87086; 93005; 93010; 94640; 94761; 96360; 97116-GP; 97161-GP; 99283-25; J0131; J1644; J7030

== ENCOUNTER 2021-12-28 12:16 | Emergency (ER) | payer OTHER, MEDICARE ==
[2021-12-28 12:26] VITALS: TEMP 98.3; BMI 40.8
[2021-12-28] MEDS ORDERED: ALBUTEROL SO4 2.5/IPRATROPIUM 0.5 INH SOL 3 ML VIAL.NEB. NEB ONE (13:56)
[2021-12-28] MEDS: ALBUTEROL SO4 2.5/IPRATROPIUM 0.5 INH SOL 3 ML VIAL.NEB. NEB SCH (14:01)
[2021-12-28 14:05] LABS: HEMATOCRIT 30.7 % (32.4-45.2); HEMOGLOBIN 10.4 GM/dL (10.7-15.3); MCH 29.9 pg (25.7-33.7); MEAN CELL VOLUME 87.9 fl (80-96); MEAN PLT VOLUME 8.7 fl (7.5-11.1); PLATELET COUNT 338 10^3/uL (134-434); RBC 3.49 M/mm3 (3.60-5.2); RDW 15.2 % (11.6-15.6); WHITE BLOOD COUNT 10.5 K/mm3 (4.0-10.0)
[2021-12-28 14:26] LABS: CALCIUM 8.7 mg/dL (8.5-10.1)
[2021-12-28 14:27] LABS: BLOOD UREA NITROGEN 16.9 mg/dL (7-18)
[2021-12-28 14:30] LABS: CREATININE 0.6 mg/dL (0.55-1.3)
[2021-12-28 14:32] LABS: BILIRUBIN,TOTAL 0.3 mg/dL (0.2-1); TOT PROT 6.6 g/dl (6.4-8.2)
[2021-12-28 14:43] LABS: ANISOCYTOSIS 0; HELMET CELLS 0; HOWELL-JOLLY BODIES 0; MACROCYTOSIS 0; OVALOCYTE 0; ROULEAU 0; SICKELED CELLS 0; TARGET CELLS 0; TEAR DROP CELLS 0; TOXIC GRANULATION 0
[2021-12-28 15:58] VITALS: BP 138/57; PULSE 92
== END 2021-12-28 15:58 | disposition home or self-care (01) ==
LOC: JER 12:16
PROC: 3E0F7GC Introduction of Other Therapeutic Substance into Respiratory Tract, Via Natural or Artificial Opening (ICD-10-PCS; principal; 2021-12-28)
DX: J44.1 Chronic obstructive pulmonary disease with (acute) exacerbation (principal)
CPT/HCPCS: 0241U-QW; 36415; 71045-TC-FY; 80053; 84484; 85025; 93005; 93010; 94640; 99285-25

== ENCOUNTER 2022-04-07 06:29 | Emergency (ER) | payer OTHER, MEDICARE ==
[2022-04-07 06:55] VITALS: RESP 18; BMI 19.8
[2022-04-07] MEDS ORDERED: ACETAMINOPHEN 1000 MG/100 ML BAG IVPB ONE (07:46)
[2022-04-07] MEDS ORDERED: ACETAMINOPHEN INJECTION 100 ML IVPB ONE (08:18)
[2022-04-07 08:47] LABS: BASO % 0.7 % (0-2.0); EOS % 0.4 % (0-4.5); HEMATOCRIT 36.8 % (32.4-45.2); HEMOGLOBIN 12.3 GM/dL (10.7-15.3); LYMPH % 10.3 % (8-40); MCH 29.7 pg (25.7-33.7); MCHC 33.4 g/dl (32.0-36.0); MEAN CELL VOLUME 88.8 fl (80-96); MEAN PLT VOLUME 8.4 fl (7.5-11.1); MONO % 6.8 % (3.8-10.2); NEUT % 81.8 % (42.8-82.8); PLATELET COUNT 235 10^3/uL (134-434); RBC 4.14 M/mm3 (3.60-5.2); RDW 16.3 % (11.6-15.6); WHITE BLOOD COUNT 5.1 K/mm3 (4.0-10.0)
[2022-04-07 09:11] LABS: BLOOD UREA NITROGEN 17.4 mg/dL (7-18); CALCIUM 9.1 mg/dL (8.5-10.1); MAGNESIUM 2.1 mg/dL (1.8-2.4)
[2022-04-07 09:12] LABS: ALBUMIN 4.3 g/dl (3.4-5.0)
[2022-04-07 09:14] LABS: CREATININE 0.6 mg/dL (0.55-1.3)
[2022-04-07 09:16] LABS: BILIRUBIN,TOTAL 0.3 mg/dL (0.2-1); TOT PROT 7.2 g/dl (6.4-8.2)
[2022-04-07 09:19] VITALS: BP 122/58; PULSE 61; TEMP 97.2
== END 2022-04-07 09:55 | disposition home or self-care (01) ==
LOC: JER 06:29
PROC: 3E0333Z Introduction of Anti-inflammatory into Peripheral Vein, Percutaneous Approach (ICD-10-PCS; principal; 2022-04-07)
DX: R42 Dizziness and giddiness (principal); R51.9 Headache, unspecified
CPT/HCPCS: 36415; 80053; 83735; 84484; 85025; 93005; 93010; 99284-25

== ENCOUNTER 2022-06-21 06:20 | Emergency (ER) | payer OTHER, MEDICARE ==
[2022-06-21 06:47] VITALS: RESP 18; TEMP 98; BMI 18.8
[2022-06-21 08:55] LABS: HEMATOCRIT 36.9 % (32.4-45.2); HEMOGLOBIN 11.9 GM/dL (10.7-15.3); MCH 28.8 pg (25.7-33.7); MCHC 32.2 g/dl (32.0-36.0); MEAN CELL VOLUME 89.5 fl (80-96); MEAN PLT VOLUME 8.8 fl (7.5-11.1); PLATELET COUNT 280 10^3/uL (134-434); RBC 4.12 M/mm3 (3.60-5.2); RDW 14.8 % (11.6-15.6); WHITE BLOOD COUNT 7.3 K/mm3 (4.0-10.0)
[2022-06-21 09:45] LABS: ALBUMIN 3.9 g/dl (3.4-5.0); CALCIUM 9.3 mg/dL (8.5-10.1)
[2022-06-21 09:46] LABS: BLOOD UREA NITROGEN 17.2 mg/dL (7-18)
[2022-06-21 09:49] LABS: CREATININE 0.7 mg/dL (0.55-1.3)
[2022-06-21 09:51] LABS: BILIRUBIN,TOTAL 0.2 mg/dL (0.2-1)
[2022-06-21 10:38] VITALS: BP 162/72; PULSE 72
== END 2022-06-21 10:39 | disposition home or self-care (01) ==
LOC: JER 06:20
DX: B97.4 Respiratory syncytial virus as the cause of diseases classified elsewhere (principal)
CPT/HCPCS: 0241U-QW; 36415; 71046-TC-FY; 80053; 84484; 85027; 93005; 93010; 99285-25

== ENCOUNTER 2022-10-30 06:52 | Emergency (ER) | payer OTHER, MEDICARE ==
[2022-10-30 07:00] VITALS: BP 162/61; PULSE 87; RESP 20; TEMP 98.3; BMI 18.5
[2022-10-30 08:14] LABS: BASO % 0.4 % (0-2.0); EOS % 0.4 % (0-4.5); HEMATOCRIT 36.1 % (32.4-45.2); HEMOGLOBIN 12.2 GM/dL (10.7-15.3); LYMPH % 7.8 % (8-40); MCH 28.5 pg (25.7-33.7); MCHC 33.7 g/dl (32.0-36.0); MEAN CELL VOLUME 84.5 fl (80-96); MEAN PLT VOLUME 9.3 fl (7.5-11.1); NEUT % 82.4 % (42.8-82.8); PLATELET COUNT 267 10^3/uL (134-434); RBC 4.28 M/mm3 (3.60-5.2); RDW 15.8 % (11.6-15.6); WHITE BLOOD COUNT 9.3 K/mm3 (4.0-10.0)
[2022-10-30 08:18] LABS: EPI CELLS 4 /uL (0-25.1); HYALINE CASTS 0 /uL (0-3.1); URINE APPEARANCE CLEAR; URINE BACTERIA 9 /uL (0-1359); URINE BILIRUBIN NEGATIVE (NEGATIVE); URINE COLOR YELLOW; URINE GLUCOSE (UA) NEGATIVE (NEGATIVE); URINE KETONE NEGATIVE (NEGATIVE); URINE LEUK ESTERASE TRACE (NEGATIVE); URINE NITRITE NEGATIVE (NEGATIVE); URINE PROTEIN TRACE (NEGATIVE); URINE RBC 10 /uL (0-23.9); URINE UROBILINOGEN 0.2 mg/dL (0.2-1.0); URINE WBC 11 /uL (0-25.8)
[2022-10-30 08:32] LABS: CALCIUM 9.2 mg/dL (8.5-10.1)
[2022-10-30 08:33] LABS: ALBUMIN 3.8 g/dl (3.4-5.0); BLOOD UREA NITROGEN 21.5 mg/dL (7-18)
[2022-10-30 08:36] LABS: CREATININE 0.8 mg/dL (0.55-1.3)
[2022-10-30 08:37] LABS: BILIRUBIN,TOTAL 0.6 mg/dL (0.2-1); TOT PROT 7.2 g/dl (6.4-8.2)
== END 2022-10-30 10:15 | disposition left against medical advice (07) ==
LOC: JER 06:52
DX: K59.00 Constipation, unspecified (principal); R10.32 Left lower quadrant pain
CPT/HCPCS: 36415; 74177-TC; 80053; 81003; 83605; 84484; 85025; 87086; 93005; 93010; 99285-25; Q9967

== ENCOUNTER 2022-11-14 09:02 | Inpatient (IN) | payer OTHER, MEDICARE ==
[2022-11-14 10:02] LABS: VENOUS BASE EXCESS 2.5 mmol/L (-2-2); VENOUS O2 SATURATION 39.7 % (70-80); VENOUS PCO2 62.8 mmHg (38-52); VENOUS PH 7.303 (7.310-7.410)
[2022-11-14 10:06] LABS: HEMATOCRIT 35.2 % (32.4-45.2); HEMOGLOBIN 11.8 GM/dL (10.7-15.3); MCH 28.2 pg (25.7-33.7); MCHC 33.5 g/dl (32.0-36.0); MEAN CELL VOLUME 84.2 fl (80-96); PLATELET COUNT 458 10^3/uL (134-434); RBC 4.18 M/mm3 (3.60-5.2); RDW 15.6 % (11.6-15.6); WHITE BLOOD COUNT 11.6 K/mm3 (4.0-10.0)
[2022-11-14 10:26] LABS: POTASSIUM 5.2 mmol/L (3.5-5.1)
[2022-11-14 10:28] LABS: CALCIUM 9.3 mg/dL (8.5-10.1)
[2022-11-14 10:29] LABS: ALBUMIN 3.4 g/dl (3.4-5.0); BLOOD UREA NITROGEN 23.7 mg/dL (7-18); MAGNESIUM 1.9 mg/dL (1.8-2.4)
[2022-11-14 10:32] LABS: CREATININE 0.7 mg/dL (0.55-1.3)
[2022-11-14 10:33] LABS: BILIRUBIN,TOTAL 0.2 mg/dL (0.2-1); TOT PROT 6.5 g/dl (6.4-8.2)
[2022-11-14 10:35] LABS: LACTIC ACID 3.1 mmol/L (0.4-2.0)
[2022-11-14 10:37] LABS: N-TERMINAL BNP 555.3 pg/ml (5-450)
[2022-11-14 11:15] LABS: ANISOCYTOSIS 0; MACROCYTOSIS 0
[2022-11-14] MEDS ORDERED: methylPREDNISolone NA SUCC 125 MG/2 ML VIAL IVPUSH ONE (12:14)
[2022-11-14] MEDS ORDERED: ALBUTEROL SO4 2.5/IPRATROPIUM 0.5 INH SOL 3 ML VIAL.NEB. NEB SCH (12:15)
[2022-11-14] MEDS ORDERED: methylPREDNISolone NA SUCC 125 MG/2 ML VIAL ONE (12:18)
[2022-11-14] MEDS ORDERED: CIPROFLOXACIN 400 MG/D5W 400 MG/200 ML IVPB IVPB ONE (12:53)
[2022-11-14 14:56] VITALS: BMI 17.2
[2022-11-14] MEDS ORDERED: ALBUTEROL SO4 0.083% IH SOL 2.5 MG/3 ML VIAL.NEB. NEB PRN (18:22)
[2022-11-14 18:57] LABS: HEMATOCRIT 33.2 % (32.4-45.2); HEMOGLOBIN 10.8 GM/dL (10.7-15.3); MCH 27.4 pg (25.7-33.7); MCHC 32.6 g/dl (32.0-36.0); MEAN CELL VOLUME 83.9 fl (80-96); MEAN PLT VOLUME 7.6 fl (7.5-11.1); PLATELET COUNT 458 10^3/uL (134-434); RBC 3.95 M/mm3 (3.60-5.2); RDW 15.9 % (11.6-15.6); WHITE BLOOD COUNT 11.4 K/mm3 (4.0-10.0)
[2022-11-14] MEDS ORDERED: guaiFENesin/CODEINE 5 ML UNIT-DOSE CUPS PO PRN (19:13)
[2022-11-14] MEDS ORDERED: AZITHROMYCIN 250 MG TABLET PO SCH (19:15)
[2022-11-14 19:24] LABS: POTASSIUM 4.1 mmol/L (3.5-5.1)
[2022-11-14 19:26] LABS: CALCIUM 8.5 mg/dL (8.5-10.1)
[2022-11-14 19:27] LABS: ALBUMIN 3.1 g/dl (3.4-5.0); BLOOD UREA NITROGEN 20.6 mg/dL (7-18)
[2022-11-14 19:32] LABS: BILIRUBIN,TOTAL 0.2 mg/dL (0.2-1); TOT PROT 6.2 g/dl (6.4-8.2)
[2022-11-14 19:36] LABS: LACTIC ACID 4.8 mmol/L (0.4-2.0)
[2022-11-14 19:53] LABS: ANISOCYTOSIS 1+; MACROCYTOSIS 1+; OVALOCYTE 1+
[2022-11-14] MEDS: SODIUM CHLORIDE 1,000 ML IV SCH (20:52)
[2022-11-14] MEDS: ATORVASTATIN CA 10 MG TABLET (FP) PO SCH (21:39)
[2022-11-14] MEDS: HEPARIN NA (PORCINE) 5,000 UNITS/ML 1ML VIAL SQ SCH (21:39)
[2022-11-14] MEDS: MONTELUKAST NA 10 MG TABLET PO SCH (21:39)
[2022-11-15] MEDS: methylPREDNISolone NA SUCC 40 MG/1 ML VIAL IVPB SCH ×3 (02:19→21:28)
[2022-11-15] MEDS ORDERED: FAMOTIDINE 20 MG TABLET PO SCH (10:00)
[2022-11-15] MEDS: MULTIVITAMINS THER W-MINERALS COMBO TABLET (FP) PO SCH (11:30)
[2022-11-15] MEDS: amLODIPine BESYLATE 10 MG TABLET (FP) PO SCH (11:30)
[2022-11-15] MEDS: SODIUM BICARBONATE 650 MG TABLET PO SCH (11:31)
[2022-11-15] MEDS: FAMOTIDINE 10 MG TABLET PO SCH (11:31)
[2022-11-15] MEDS: HEPARIN NA (PORCINE) 5,000 UNITS/ML 1ML VIAL SQ SCH ×2 (11:33→21:28)
[2022-11-15] MEDS: SODIUM CHLORIDE 1,000 ML IV SCH (11:34)
[2022-11-15] MEDS ORDERED: LOPERAMIDE HCL 2 MG CAPSULE PO PRN (12:54)
[2022-11-15 14:42] LABS: URINE APPEARANCE Turbid; URINE BILIRUBIN 2+ (NEGATIVE); URINE GLUCOSE (UA) Negative (NEGATIVE); URINE KETONE Negative (NEGATIVE); URINE LEUK ESTERASE Trace (NEGATIVE); URINE NITRITE Negative (NEGATIVE); URINE PROTEIN Negative (NEGATIVE)
[2022-11-15 14:49] LABS: EPI CELLS 2+ /uL (0-25.1); URINE BACTERIA 2+ /uL (0-1359)
[2022-11-15 15:21] LABS: URINE COLOR Yellow
[2022-11-15 15:33] LABS: URINE APPEARANCE CLEAR; URINE BILIRUBIN NEGATIVE (NEGATIVE); URINE COLOR DK YELLOW; URINE GLUCOSE (UA) NEGATIVE (NEGATIVE); URINE KETONE NEGATIVE (NEGATIVE); URINE NITRITE NEGATIVE (NEGATIVE); URINE PROTEIN NEGATIVE (NEGATIVE); URINE UROBILINOGEN 0.2 mg/dL (0.2-1.0)
[2022-11-15 15:34] LABS: URINE LEUK ESTERASE NEGATIVE (NEGATIVE)
[2022-11-15] MEDS: ALBUTEROL SO4 2.5/IPRATROPIUM 0.5 INH SOL 3 ML VIAL.NEB. NEB SCH ×2 (15:54→20:15)
[2022-11-15] MEDS: ATORVASTATIN CA 10 MG TABLET (FP) PO SCH (21:29)
[2022-11-15] MEDS: MONTELUKAST NA 10 MG TABLET PO SCH (21:29)
[2022-11-16] MEDS: ALBUTEROL SO4 2.5/IPRATROPIUM 0.5 INH SOL 3 ML VIAL.NEB. NEB SCH ×3 (07:45→20:25)
[2022-11-16] MEDS: amLODIPine BESYLATE 10 MG TABLET (FP) PO SCH (11:56)
[2022-11-16] MEDS: methylPREDNISolone NA SUCC 40 MG/1 ML VIAL IVPB SCH ×2 (11:56→22:01)
[2022-11-16] MEDS: HEPARIN NA (PORCINE) 5,000 UNITS/ML 1ML VIAL SQ SCH ×2 (11:56→22:01)
[2022-11-16] MEDS: MULTIVITAMINS THER W-MINERALS COMBO TABLET (FP) PO SCH (11:56)
[2022-11-16] MEDS: SODIUM BICARBONATE 650 MG TABLET PO SCH (11:57)
[2022-11-16] MEDS: FAMOTIDINE 10 MG TABLET PO SCH (11:57)
[2022-11-16 12:09] VITALS: RESP 20
[2022-11-16] MEDS: metroNIDAZOLE 250 MG TABLET PO SCH ×2 (15:02→22:01)
[2022-11-16] MEDS: MONTELUKAST NA 10 MG TABLET PO SCH (22:01)
[2022-11-16] MEDS: ATORVASTATIN CA 10 MG TABLET (FP) PO SCH (22:01)
[2022-11-17] MEDS: metroNIDAZOLE 250 MG TABLET PO SCH ×2 (06:13→13:00)
[2022-11-17] MEDS: ALBUTEROL SO4 2.5/IPRATROPIUM 0.5 INH SOL 3 ML VIAL.NEB. NEB SCH ×2 (07:32→13:58)
[2022-11-17] MEDS: HEPARIN NA (PORCINE) 5,000 UNITS/ML 1ML VIAL SQ SCH (09:31)
[2022-11-17] MEDS: FAMOTIDINE 10 MG TABLET PO SCH (09:31)
[2022-11-17] MEDS: MULTIVITAMINS THER W-MINERALS COMBO TABLET (FP) PO SCH (09:32)
[2022-11-17] MEDS: SODIUM BICARBONATE 650 MG TABLET PO SCH (09:32)
[2022-11-17] MEDS: amLODIPine BESYLATE 10 MG TABLET (FP) PO SCH (09:32)
[2022-11-17] MEDS: methylPREDNISolone NA SUCC 40 MG/1 ML VIAL IVPB SCH (09:37)
[2022-11-17 11:13] VITALS: BP 146/92; PULSE 82; TEMP 98.4
== END 2022-11-17 14:08 | disposition home or self-care (01) | DRG 191 ==
LOC: JER 09:02 → JERBED 12:09 → J7W 14:38
PROVIDERS: ADMIT Internal Medicine; ATTEND Internal Medicine
DX: J44.1 Chronic obstructive pulmonary disease with (acute) exacerbation (principal); K57.92 Diverticulitis of intestine, part unspecified, without perforation or abscess without bleeding; I10 Essential (primary) hypertension; E78.5 Hyperlipidemia, unspecified; F41.9 Anxiety disorder, unspecified; I44.7 Left bundle-branch block, unspecified; R19.7 Diarrhea, unspecified; R42 Dizziness and giddiness
CPT/HCPCS: 0241U-QW; 36415; 71045-TC-FY; 71250-TC; 74178-TC; 80053; 81003; 82550; 82803; 83605; 83690; 83735; 83880; 84443; 84484; 85025; 86140; 87045; 87046; 87077; 87086; 87205; 87209; 87324; 87449; 93005; 93010; 93306-TC; 94640; 94761; 99285-25; J1644; Q9967

== ENCOUNTER 2022-12-30 04:41 | Day surgery (SDC) | payer OTHER, MEDICARE ==
[2022-12-29 12:52] VITALS: BMI 17.9
[2022-12-30 11:31] VITALS: TEMP 97.8
[2022-12-30 11:55] VITALS: RESP 12
[2022-12-30 11:57] VITALS: BP 146/50; PULSE 58
== END 2022-12-30 12:20 | disposition home or self-care (01) ==
LOC: JASU-ENDO 04:41
PROVIDERS: ATTEND Internal Medicine Gastroenterology
PROC: 0DBL8ZX Excision of Transverse Colon, Via Natural or Artificial Opening Endoscopic, Diagnostic (ICD-10-PCS; 2022-12-30)
PROC: 0DBM8ZX Excision of Descending Colon, Via Natural or Artificial Opening Endoscopic, Diagnostic (ICD-10-PCS; 2022-12-30)
PROC: 0DBH8ZX Excision of Cecum, Via Natural or Artificial Opening Endoscopic, Diagnostic (ICD-10-PCS; 2022-12-30)
PROC: 0DBK8ZX Excision of Ascending Colon, Via Natural or Artificial Opening Endoscopic, Diagnostic (ICD-10-PCS; principal; 2022-12-30 11:00)
DX: Z12.11 Encounter for screening for malignant neoplasm of colon (principal); D12.0 Benign neoplasm of cecum; D12.2 Benign neoplasm of ascending colon; D12.3 Benign neoplasm of transverse colon; D12.4 Benign neoplasm of descending colon; K57.30 Diverticulosis of large intestine without perforation or abscess without bleeding; I10 Essential (primary) hypertension
CPT/HCPCS: 88305-TC

== ENCOUNTER 2023-08-12 04:03 | Day surgery (SDC) | payer OTHER, MEDICARE ==
[2023-08-05 14:53] VITALS: BMI 18.8
[2023-08-12] MEDS ORDERED: DEXAMETHASONE SOD PHOSPHATE 10 MG/1 ML VIAL ONE (07:35)
[2023-08-12] MEDS ORDERED: LIDOCAINE HCL/PF 1% SDV 5ML VIAL ONE (07:35)
[2023-08-12] MEDS: LIDOCAINE 1% P/F 10 MG/ML VIAL INF ONE ×3 (11:25)
[2023-08-12] MEDS: IOHEXOL 180 MG/1 ML ML IJ ONE ×3 (11:25)
[2023-08-12] MEDS: DEXAMETHASONE SOD PHOSPHATE 10 MG/1 ML VIAL IVPUSH ONE ×3 (11:25)
[2023-08-12 11:47] VITALS: BP 153/55; PULSE 66; RESP 18; TEMP 98.3
[2023-08-12] MEDS ORDERED: ACETAMINOPHEN 500 MG TABLET (FP) PO PRN (13:52)
== END 2023-08-12 12:00 | disposition home or self-care (01) ==
LOC: JASU-SURG 04:03
PROVIDERS: ATTEND Pain Medicine Pain Medicine
PROC: 3E0R3BZ Introduction of Anesthetic Agent into Spinal Canal, Percutaneous Approach (ICD-10-PCS; 2023-08-12)
PROC: 3E0R33Z Introduction of Anti-inflammatory into Spinal Canal, Percutaneous Approach (ICD-10-PCS; principal; 2023-08-12 12:00)
DX: M48.061 Spinal stenosis, lumbar region without neurogenic claudication (principal); M54.16 Radiculopathy, lumbar region
CPT/HCPCS: 76000-TC-FY; J1100

== ENCOUNTER 2023-09-27 05:11 | Day surgery (SDC) | payer OTHER, MEDICARE ==
[2023-09-02 16:09] VITALS: BMI 18.8
[~2023-09-27 05:11] MED LIST: ACETAMINOPHEN 500 MG TABLET (FP) PO PRN
[2023-09-27 06:30] VITALS: RESP 20
[2023-09-27] MEDS ORDERED: LIDOCAINE HCL/PF 1% SDV 5ML VIAL ONE (07:10)
[2023-09-27] MEDS ORDERED: BUPIVACAINE HCL/PF 0.75% 10 ML VIAL ONE (07:10)
[2023-09-27] MEDS: LIDOCAINE 1% P/F 10 MG/ML VIAL INF ONE ×2 (08:49)
[2023-09-27] MEDS: BUPIVACAINE HCL/PF 0.75% 10 ML VIAL NR ONE ×2 (08:53)
[2023-09-27 09:18] VITALS: PULSE 67; TEMP 97.8
[2023-09-27 10:01] VITALS: BP 167/67
[2023-09-27] MEDS ORDERED: ACETAMINOPHEN 500 MG TABLET (FP) PO PRN (12:01)
== END 2023-09-27 10:02 | disposition home or self-care (01) ==
LOC: JASU-SURG 05:11
PROVIDERS: ATTEND Pain Medicine Pain Medicine
PROC: 3E0T33Z Introduction of Anti-inflammatory into Peripheral Nerves and Plexi, Percutaneous Approach (ICD-10-PCS; 2023-09-27)
PROC: 3E0T3BZ Introduction of Anesthetic Agent into Peripheral Nerves and Plexi, Percutaneous Approach (ICD-10-PCS; principal; 2023-09-27 08:00)
DX: M47.816 Spondylosis without myelopathy or radiculopathy, lumbar region (principal)
CPT/HCPCS: 76000-TC-FY

== ENCOUNTER 2023-11-01 04:19 | Day surgery (SDC) | payer OTHER, MEDICARE ==
[2023-10-26 12:19] VITALS: BMI 18.8
[2023-11-01] MEDS ORDERED: BUPIVACAINE HCL/PF 0.75% 10 ML VIAL ONE (07:24)
[2023-11-01] MEDS ORDERED: LIDOCAINE HCL/PF 1% SDV 5ML VIAL ONE (07:24)
[2023-11-01] MEDS: LIDOCAINE HCL 1% PRESERVATIVE FREE - 30ML VIAL IJ ONE (10:29)
[2023-11-01 11:08] VITALS: RESP 18
[2023-11-01 12:43] VITALS: BP 168/64; PULSE 70; TEMP 98
[2023-11-01] MEDS ORDERED: ACETAMINOPHEN 500 MG TABLET (FP) PO PRN (13:46)
== END 2023-11-01 11:15 | disposition home or self-care (01) ==
LOC: JASU-SURG 04:19
PROVIDERS: ATTEND Pain Medicine Pain Medicine
PROC: 3E0T33Z Introduction of Anti-inflammatory into Peripheral Nerves and Plexi, Percutaneous Approach (ICD-10-PCS; 2023-11-01)
PROC: 3E0T3BZ Introduction of Anesthetic Agent into Peripheral Nerves and Plexi, Percutaneous Approach (ICD-10-PCS; principal; 2023-11-01 10:00)
DX: M47.816 Spondylosis without myelopathy or radiculopathy, lumbar region (principal)
CPT/HCPCS: 76000-TC-FY

== ENCOUNTER 2023-12-15 04:13 | Day surgery (SDC) | payer OTHER, MEDICARE ==
[2023-12-07 17:54] VITALS: BMI 18.8
[2023-12-15] MEDS ORDERED: ACETAMINOPHEN 500 MG TABLET (FP) PO PRN (08:27)
[2023-12-15 11:46] VITALS: TEMP 97.8
[2023-12-15 12:58] VITALS: BP 140/71; PULSE 81; RESP 18
== END 2023-12-15 13:07 | disposition home or self-care (01) ==
LOC: JASU-SURG 04:13
PROVIDERS: ATTEND Pain Medicine Pain Medicine
PROC: 015B3ZZ Destruction of Lumbar Nerve, Percutaneous Approach (ICD-10-PCS; principal; 2023-12-15 13:15)
DX: M47.816 Spondylosis without myelopathy or radiculopathy, lumbar region (principal)
CPT/HCPCS: 76000-TC-FY

== ENCOUNTER 2024-01-19 04:26 | Day surgery (SDC) | payer OTHER, MEDICARE ==
[2024-01-11 17:33] VITALS: BMI 18.8
[2024-01-19] MEDS ORDERED: LIDOCAINE HCL/PF 2% SDV 5ML VIAL ONE (07:14)
[2024-01-19] MEDS ORDERED: LIDOCAINE HCL/PF 1% SDV 5ML VIAL ONE (07:14)
[2024-01-19] MEDS ORDERED: BUPIVACAINE HCL/PF 0.5% (5MG/ML) 10 ML VIAL ONE (07:14)
[2024-01-19] MEDS ORDERED: DEXAMETHASONE SOD PHOSPHATE 10 MG/1 ML VIAL ONE (07:15)
[2024-01-19 08:54] VITALS: RESP 18
[2024-01-19] MEDS ORDERED: ACETAMINOPHEN 500 MG TABLET (FP) PO PRN (11:46)
[2024-01-19] MEDS: BUPIVACAINE HCL/PF 0.75% 10 ML VIAL PNB ONE ×2 (12:25)
[2024-01-19] MEDS: DEXAMETHASONE SOD PHOSPHATE 10 MG/1 ML VIAL IVPUSH ONE ×2 (12:25)
[2024-01-19] MEDS: LIDOCAINE HCL/PF 2% SDV 5ML VIAL PNB ONE ×2 (12:25)
[2024-01-19] MEDS: LIDOCAINE 1% P/F 10 MG/ML VIAL PNB ONE ×2 (12:25)
[2024-01-19 13:23] VITALS: BP 160/73; PULSE 79; TEMP 97.8
== END 2024-01-19 13:20 | disposition home or self-care (01) ==
LOC: JASU-SURG 04:26
PROVIDERS: ATTEND Pain Medicine Pain Medicine
PROC: 015B3ZZ Destruction of Lumbar Nerve, Percutaneous Approach (ICD-10-PCS; principal; 2024-01-19 10:45)
DX: M47.816 Spondylosis without myelopathy or radiculopathy, lumbar region (principal)
CPT/HCPCS: 76000-TC-FY; J1100